=== PATIENT | female | born 1960 | race Caucasian/White ===

== ENCOUNTER → 2016-04-06 | Outpatient (CLI) | payer BC ==
--- NOTE | 2016-04-06 20:13 | CONS ---
DATE OF CONSULTATION: 04/06/2016 CONSULTATION/NEW PATIENT EVALUATION HISTORY OF PRESENT ILLNESS/SLEEP-WAKE EVALUATION: 56-year-old lady has been evaluated in the [facility] for possible obstructive sleep apnea/hypopnea syndrome. SLEEP SCHEDULE: Patient sleep schedule on working days , Sundays she goes to bed about midnight and wakes up at 5:30 a.m., on weekends, she usually sleeps from around about 10:00 p.m. until about 10:00 a.m. FALLING ASLEEP: She does have problem with falling asleep. He has a TV set in bedroom. DURING SLEEP: She snores, has witnessed episodes of stopped breathing during sleep by her . Wakes up with dry mouth, heartburn, gasping for air, sweating, restless legs up to 6 times with up to 2 episodes of nocturia. In the morning, she feel tiredness. [place] Sleepiness Scale is significantly increased to 12. Past medical history is positive for depression, ( ) problems, acid reflux, hypothyroidism. PAST SURGICAL HISTORY: Cholecystectomy, , lap band surgery and removing lap band. Patient weight significantly fluctuated after lap band surgery she lost about 90 pounds and then she increased her weight again about actually gained about 90 pounds back for the last 5 years. MEDICATIONS: 1. Citalopram. 2. Pantoprazole. 3. Tapazole. 4. Aleve. 5. Carafate. 6. Tramadol. SOCIAL HISTORY: Positive for smoking in the past; quit 26 years ago. She smoked for about 13 years up to 1-1/2 packs a day. Alcohol consumption is occasional. FAMILY HISTORY: Positive for hypertension, heart problems, hyperlipidemia, arthritis, asthma, sinus problem, bronchitis, snoring, cancer, acid reflux, diabetes, thyroid problems, during the sleep. REVIEW OF SYSTEMS: Multiple awakenings from sleep, sleepiness during the day. No fevers. No double vision. No recent chest pain. No shortness of breath. No abdominal pain. No bleeding episodes. No blood in urine. No seizure episodes. PHYSICAL EXAMINATION: GENERAL: A 56-year-old lady without distress. VITAL SIGNS: BP 158/84, HR 70, RR 16. Height 5 feet 7 inches. Weight 277, BMI 43.3. Neck 14 and 1-1/4 inches in circumference. Temperature 98.1. Oxygen saturation at room air 94%. HEENT: Oropharynx extremely low position of soft palate, nose restriction of nasal breathing. NECK: Supple. No JVD. Thyroid is not palpable. LUNGS: Clear to percussion and to auscultation. Good air exchange. No wheezing or rhonchi. HEART: S1, S2 regular. No murmurs, gallops or rubs. ABDOMEN: Obese. Soft and nontender. Bowel sounds are present. No organomegaly appreciated. EXTREMITIES: 1+ ankle edema. GAS ADJUSTER: Awake, alert, and oriented x3. Cranial nerves 2 to 7 intact. There is no fasciculation or atrophy noted. No focal deficits observed. IMPRESSION: 1. Snoring, witnessed episodes of stopped breathing during sleep, multiple awakenings from sleep, extremely low position of soft palate, excessive daytime sleepiness, obstructive sleep apnea-hypopnea syndrome. 2. Obesity; body mass index 43.3. 3. Knee problems. 4. Depression. 5. Acid reflux. 6. Hyperthyroidism on treatment with Tapazole. 7. Status post cholecystectomy. 8. Status post section. 9. Status post lap band treatment. PLAN: 1. Polysomnography for evaluation of patient's breathing during sleep. 2. CPAP/BiPAP titration if sleep study confirms obstructive sleep apnea-hypopnea syndrome. 3. Preferable position during sleep on the side. 4. No driving if patient feels any sleepiness. Patient is aware of civil and criminal liability for unsafe driving. 5. I will see patient for follow-up visit to explain results of the testing and following plan. Thank you very much for referring this patient for consultation. Sincerely, Brett Beaver MD, PhD, FAASM. Diplomat of [place] [employer], Sleep Medicine Board by [place] [employer] [place] [employer] Occupational Therapy Aides Teacher of [facility] [place]
== END | disposition home or self-care (01) ==
LOC: SLEEP 15:45
PROVIDERS: ATTEND Internal Medicine
DX: G47.33 Obstructive sleep apnea (adult) (pediatric) (principal); E66.9 Obesity, unspecified; Z68.41 Body mass index [BMI] 40.0-44.9, adult; F32.9 Major depressive disorder, single episode, unspecified; K21.9 Gastro-esophageal reflux disease without esophagitis; E05.90 Thyrotoxicosis, unspecified without thyrotoxic crisis or storm; Z98.890 Other specified postprocedural states; Z98.84 Bariatric surgery status; Z79.899 Other long term (current) drug therapy; Z87.891 Personal history of nicotine dependence
CPT/HCPCS: 99211

== ENCOUNTER 2016-04-19 08:23 | Day surgery (SDC) | payer BC ==
[2016-04-14 11:08] VITALS: BMI 42.9
--- NOTE | 2016-04-19 05:57 | P.GSHP ---
History of Present Illness H&P Date: 04/19/16 CHIEF COMPLAINT: GERD HISTORY OF PRESENT ILLNESS: The patient is a 56-year-old female who presents reports gastroesophageal reflux disease. Upper endoscopy was offered for further evaluation and management. PAST MEDICAL HISTORY: Please see list. PAST SURGICAL HISTORY: Please see list. MEDICATIONS: Please see list. ALLERGIES: Please see list. SOCIAL HISTORY: No illicit drug use FAMILY HISTORY: No reports of Crohn disease or ulcerative colitis. REVIEW OF ORGAN SYSTEMS: CONSTITUTIONAL: No reports of fevers or chills. GI: Denies any blood in stools or constipation. PHYSICAL EXAM: VITAL SIGNS: Stable GENERAL: Well-developed and pleasant in no acute distress. HEENT: No scleral icterus. Extraocular movements grossly intact. Moist buccal mucosa. NECK: Supple without lymphadenopathy. CHEST: Unlabored respirations. Equal bilateral excursions. CARDIOVASCULAR: Regular rate and rhythm. Distal 2+ pulses. ABDOMEN: Soft, nondistended. MUSCULOSKELETAL: No clubbing, cyanosis, or edema. ASSESSMENT: 1. Gastroesophageal reflux disease PLAN: 1. Recommend proceeding with an upper endoscopy Past Medical History Past Medical History: Cancer, GERD/Reflux Additional Past Medical History / Comment(s): skin CA,scheduled for sleep apnea on May History of Any Multi-Drug Resistant Organisms: None Reported Past Surgical History: Bariatric Surgery, Section, Cholecystectomy, Orthopedic Surgery Additional Past Surgical History / Comment(s): Lap Band lap band removed ,rt knee scop x 2 Past Anesthesia/Blood Transfusion Reactions: No Reported Reaction Additional Past Anesthesia/Blood Transfusion Reaction / Comment(s): no hx blood transfusion Past Psychological History: No Psychological Hx Reported Smoking Status: Former smoker Past Alcohol Use History: None Reported Additional Past Alcohol Use History / Comment(s): quit smoking , smoked approx 14 yrs 1 1/2ppd Past Drug Use History: None Reported - Past Family History Mother Additional Family Medical History / Comment(s): alcoholism Father Family Medical History: Cancer, Hypertension Brother(s) Family Medical History: Diabetes Mellitus Sister(s) Family Medical History: Cancer Additional Family Medical History / Comment(s): skin Medications and Allergies Home Medications Medication Instructions Recorded Confirmed Type Melatonin 10 mg PO HS 01/04/16 04/14/16 History Methimazole [Tapazole] 5 mg PO QAM 01/04/16 04/14/16 History Naproxen [Naprosyn] 500 tab PO DAILY 01/04/16 04/14/16 History Pantoprazole Sodium [Protonix] 40 mg PO DAILY 03/01/16 04/14/16 History Citalopram Hydrobromide 40 mg PO QAM 04/14/16 04/14/16 History Allergies Allergy/AdvReac Type Severity Reaction Status Date / Time No Known Allergies Allergy Verified 04/14/16 11:00
[~2016-04-19 08:23] MED LIST: LIDOCAINE 1% 20 ML VIAL (10MG/ML) FOR IV START INTRADERMA PRN
[2016-04-19 08:51] VITALS: TEMP 98.9
[2016-04-19] MEDS ORDERED: LIDOCAINE 1% 20 ML VIAL (10MG/ML) FOR IV START INTRADERMA ONE (08:54)
[2016-04-19] MEDS: LACTATED RINGERS 1,000 ML IV SCH ×2 (08:54→08:56)
[2016-04-19] MEDS ORDERED: LIDOCAINE 1% INJ 10MG/ML (20 ML MDV) ONE (08:58)
[2016-04-19] MEDS ORDERED: PROPOFOL 10 MG/ML 20 ML VIAL IV ONE (08:58)
--- NOTE | 2016-04-19 09:13 | P.PCN ---
Date of Procedure: 04/19/16 Description of Procedure: PREOPERATIVE DIAGNOSIS: Gastroesophageal reflux disease. POSTOPERATIVE DIAGNOSIS: Chronic gastritis without stigmata of prior bleed. Diaphragmatic hiatal hernia. Gastroesophageal reflux disease. Erosive esophagitis. OPERATION: Esophagogastroduodenoscopy with biopsies along antrum and distal esophagus. SURGEON: Lianne Seals MD ANESTHESIA: MAC. INDICATIONS: The patient is a 56-year-old female who presents with a history of reflux disease. Benefits and risks of the procedure were described. Informed consent was obtained. DESCRIPTION: The patient was brought into the endoscopy suite and laid in the left lateral decubitus position. An Olympus gastroscope was passed along the posterior oropharynx down to the distal esophagus where the squamocolumnar junction was encountered at 35 cm from the incisors. The stomach was entered and no bile reflux was found. Additional findings are listed below. Biopsies with cold forceps were obtained of the antrum. The first through third portion of the duodenum was examined and unremarkable. Retroflexion of the scope confirmed Hill grade 4 lower esophageal valve. The squamocolumnar junction demostrated acute LA grade C erosive esophagitis. The stomach was desufflated. The patient tolerated the procedure well. FINDINGS: Squamocolumnar junction 35 cm from the incisors. Diaphragmatic hiatus at 40 cm from the incisors. Diaphragmatic hiatal hernia, 5 cm. Chronic superficial gastritis. Hill grade 4 lower esophageal valve. LA grade C erosive esophagitis. No active duodenitis. RECOMMENDATIONS: Continue medical therapy. Further recommendations pending results of pathology report. Upper endoscopy as needed. Recommend antireflux operation.
[2016-04-19 09:16] VITALS: RESP 16
[2016-04-19 09:32] VITALS: BP 116/84; PULSE 62
== END 2016-04-19 09:59 | disposition home or self-care (01) ==
LOC: ORWHC2ENDO 08:23
PROVIDERS: ATTEND Surgery Plastic and Reconstructive Surgery
DX: K21.0 Gastro-esophageal reflux disease with esophagitis (principal); K29.30 Chronic superficial gastritis without bleeding; K44.9 Diaphragmatic hernia without obstruction or gangrene; K22.10 Ulcer of esophagus without bleeding; Z87.891 Personal history of nicotine dependence; F32.9 Major depressive disorder, single episode, unspecified; E66.01 Morbid (severe) obesity due to excess calories; Z68.41 Body mass index [BMI] 40.0-44.9, adult; Z79.02 Long term (current) use of antithrombotics/antiplatelets; Z79.899 Other long term (current) drug therapy
CPT/HCPCS: 43239; 88305; 88342

== ENCOUNTER → 2016-04-26 | Outpatient (CLI) | payer BC ==
[2016-04-26 13:48] VITALS: BP 137/77; PULSE 80; TEMP 98.6; BMI 43.3
--- NOTE | 2016-06-04 18:20 | P.PN ---
Progress Note - Text DATE OF SERVICE: 04/26/2016 CHIEF COMPLAINT: Bariatric assessment. HISTORY OF PRESENT ILLNESS: Natali Garcia is a 56-year-old female who presents for bariatric evaluation. She has a personal history of adjustable gastric band and has developed complications from adjustable gastric band including severe esophageal reflux disease. She reports absolutely no relief of her symptoms after taking Zantac, including alternatives. She does report developing hypertension as well. Her is at bedside and also confirms her history of obstructive sleep apnea. Now she presents for further evaluation and management, particularly for correction of her complication from her adjustable gastric band. At a height of 5 foot 7 1/4 inches, her ideal body weight is 158 pounds. Today she comes in weighing 270 pounds. She has gained approximately 9 pounds. She is 120 pounds overweight. Body mass index has increased from 41.9 to 43.3. PAST MEDICAL HISTORY: 1. Osteoarthritis of the bilateral knees. 2. Gastroesophageal reflux disease. 3. Morbid obesity. PAST SURGICAL HISTORY: 1. History of adjustable gastric band. 2. . 3. Cholecystectomy. 4. Upper endoscopy. MEDICATIONS: 1. Mobic. 2. Vitamin B complex. 3. Zantac. 4. Protonix. 5. Tapazole. 6. Melatonin. 7. Citalopram. ALLERGIES: Denies. SOCIAL HISTORY: Lifelong nontobacco user. She is . FAMILY HISTORY: Notable for morbid obesity. Also, no reports of esophageal cancer or stomach cancer. REVIEW OF SYSTEMS: GASTROINTESTINAL: Severe gastroesophageal reflux disease. Denies any blood in stools. Findings consistent with diaphragmatic hiatal hernia. CONSTITUTIONAL: [place] body weight of 158 pounds. Initially 269 pounds, now up to 278 pound. Weight gain of 9 pounds. Body mass index up from 41.9 to 43.3. HEENT: Denies any trouble with vision or hearing. No reports of dysphagia. ENDOCRINE: No reports of diabetes or thyroid disorder. RESPIRATORY: Has daytime snoring. No dyspnea on exertion. CARDIOVASCULAR: History of hypertension, untreated. No reports of heart attack. MUSCULOSKELETAL: Has diffuse osteoarthritis. Has endstage osteoarthritis of bilateral knees, pending knee replacement. NEURO: No previous stroke or seizure disorders. PSYCH: No reports of active depression or suicidality. HEMATOLOGIC: No reports of easy bruising or bleeding. PHYSICAL EXAM: VITAL SIGNS: 98.6, 88, 137/77 and 5 feet 7-1/4, 278 pounds. Body mass index 43.3. GENERAL: Well-developed female in no acute distress. HEENT: No scleral icterus. Extraocular movements grossly intact. Moist buccal mucosa. NECK: Supple without lymphadenopathy. CHEST: Nonlabored respirations. Equal bilateral excursions. CARDIOVASCULAR: Regular rate and rhythm. ABDOMEN: Obese, soft, nontender, nondistended. MUSCULOSKELETAL: No clubbing, cyanosis, or edema. NEURO: No focal or lateralizing signs. Cranial nerves II to XII grossly intact. PSYCH: Appropriate affect. Alert and oriented to person, place, and time. STUDIES: Upper endoscopy was reviewed, demonstrating findings consistent with diaphragmatic hiatal hernia including chronic gastritis. There is esophagitis also identified. Grade 4 lower esophageal with LA grade C erosive esophagitis confirmed. 5 cm diaphragmatic hiatal hernia also confirmed. LABS: Metabolic panel had been reviewed and confirmed with LDL elevated at 108. TSH was suppressed. Vitamin D was low at 18.6. Pathology report reviewed and consistent with chronic gastritis. Additionally, chronic erosive esophagitis also confirmed with no evidence of intestinal metaplasia. ASSESSMENT: 1. Morbid obesity due to excess calories. 2. Body mass index of 43.3. 3. Erosive esophagitis. 4. Diaphragmatic hiatal hernia. 5. Complications from adjustable gastric band. 6. Obstructive sleep apnea. 7. Hypertensive heart disease. 8. End-stage bilateral knee osteoarthritis. 9. Gastroesophageal reflux disease. 10. Vitamin D deficiency. PLAN: 1. Despite being started on Zantac 300 mg daily, her reflux disease is not controlled including taking Protonix. This confirms severity of her gastroesophageal reflux disease. 2. She has had several visits where her blood pressure is elevated consistent with hypertensive heart disease. 3. She is still awaiting evaluation for obstructive sleep apnea and treatment. 4. As she has history of previous adjustable gastric band, this also puts her at risk for increased risk for complications as compared to an original surgery to a Tyler-en-Y gastric bypass. The benefits and risks were thoroughly reviewed with her. 5. Recommend follow-up upon completion of her additional studies, including for treatment of her obstructive sleep apnea. 6. In the interim, she will continue vitamin D supplement to correct her vitamin D deficiency. 7. For history of reflux disease, she should continue with medical management.
== END | disposition home or self-care (01) ==
LOC: BARWHC3 12:39
PROVIDERS: ATTEND Surgery Plastic and Reconstructive Surgery
DX: Z48.815 Encounter for surgical aftercare following surgery on the digestive system (principal); E66.01 Morbid (severe) obesity due to excess calories; Z68.41 Body mass index [BMI] 40.0-44.9, adult; K22.10 Ulcer of esophagus without bleeding; K44.9 Diaphragmatic hernia without obstruction or gangrene; K95.09 Other complications of gastric band procedure; G47.33 Obstructive sleep apnea (adult) (pediatric); I11.9 Hypertensive heart disease without heart failure; M17.0 Bilateral primary osteoarthritis of knee; K21.9 Gastro-esophageal reflux disease without esophagitis; E55.9 Vitamin D deficiency, unspecified; Z98.84 Bariatric surgery status; Z79.899 Other long term (current) drug therapy
CPT/HCPCS: 99211

== ENCOUNTER → 2016-06-12 | Outpatient (CLI) | payer BC ==
[2016-06-12 16:30] VITALS: BMI 43.2
== END | disposition home or self-care (01) ==
LOC: BARWHC3 09:02
PROVIDERS: ATTEND Surgery Plastic and Reconstructive Surgery
DX: Z71.3 Dietary counseling and surveillance (principal); E66.01 Morbid (severe) obesity due to excess calories; Z68.41 Body mass index [BMI] 40.0-44.9, adult
CPT/HCPCS: 97804

== ENCOUNTER → 2016-06-15 | Outpatient (CLI) | payer BC ==
[2016-06-15 17:02] LABS: Basophils # (A) 0.1 k/uL (0-0.2); Basophils % (A) 1 %; CHCM 31.2; Eosinophils # (A) 0.4 k/uL (0-0.7); Eosinophils % (A) 4 %; HCT 40.9 % (34.0-46.0); HDW 2.13; Luc # (Auto) 0.19; Luc % (Auto) 2; Lymphocytes # (A) 2.2 k/uL (1.0-4.8); Lymphocytes % (A) 24 %; MCH 28.8 pg (25.0-35.0); MCHC 31.9 g/dL (31.0-37.0); MCV 90.4 fL (80.0-100.0); Mean Platelet Volume 6.6; Monocytes # (A) 0.4 k/uL (0-1.0); Monocytes % (A) 4 %; Neutrophils # (A) 5.8 k/uL (1.3-7.7); Neutrophils % (A) 65 %; RBC 4.53 m/uL (3.80-5.40); RDW 14.3 % (11.5-15.5); WBC (Perox) 9.97
[2016-06-15 17:17] LABS: ALT 31 U/L (9-52); AST 20 U/L (14-36); Alkaline Phosphatase 146 U/L (38-126); Anion Gap 12 mmol/L; Blood Urea Nitrogen 23 mg/dL (7-17); Calcium 9.9 mg/dL (8.4-10.2); Carbon Dioxide 26 mmol/L (22-30); Chloride 105 mmol/L (98-107); Glucose 113 mg/dL (74-99); Non-African American GFR(MDRD) >60 (>60 ml/min/1.73 sqM); Potassium 4.1 mmol/L (3.5-5.1); Sodium 143 mmol/L (137-145); Total Bilirubin 0.4 mg/dL (0.2-1.3); Total Protein 7.1 g/dL (6.3-8.2)
[2016-06-15 17:19] LABS: Partial Thromboplastin Time 24.4 sec (22.0-30.0); Prothrombin Time 10.1 sec (9.0-12.0)
--- NOTE | 2016-06-15 17:25 | XR ---
EXAMINATION TYPE: XR chest 2V DATE OF EXAM: 06/15/2016 5:07 PM COMPARISON: NONE HISTORY: Chest pain TECHNIQUE: Frontal and lateral views of the chest are obtained. FINDINGS: Heart and mediastinum are normal. Lungs are clear. Diaphragm is normal. Bony thorax is int act. IMPRESSION: Normal chest
== END | disposition home or self-care (01) ==
LOC: LABWHC1 16:38
PROVIDERS: ATTEND Family Medicine
DX: Z01.818 Encounter for other preprocedural examination (principal); E05.90 Thyrotoxicosis, unspecified without thyrotoxic crisis or storm
CPT/HCPCS: 36415; 71020; 80053; 84443; 85025; 85610; 85730

== ENCOUNTER → 2016-08-03 | Outpatient (CLI) | payer BC ==
--- NOTE | 2016-08-03 17:49 | PN ---
DATE OF SERVICE: 08/03/2016 This patient is a 56-year-old lady who has been followed in the sleep center for treatment of obstructive sleep apnea-hypopnea syndrome. Recently patient had a diagnostic sleep study and CPAP titration; I discussed the results of these tests with her. Patient was started on treatment with CPAP on automatic regimen with a pressure ranging from 5 to 15 cm of water. I received information from her machine and reviewed that with her. Patient demonstrated 100% usage of the machine for more than 4 hours; average 7 hours 30 minutes per night. Range of the pressure was between 7.1 and 10.8. Apnea-hypopnea index reading is 0.5. Patient feels significantly better while on treatment with CPAP. [place] Sleepiness Scale is 8. No snoring with the machine. Quality of sleep is better and she feels better again during the day. MEDICATIONS: 1. Citalopram. 2. Pantoprazole. 3. Tapazole. 4. Aleve. 5. Carafate. 6. Tramadol. PHYSICAL EXAMINATION: Patient in no distress. VITAL SIGNS: BP 140/74, HR 66, RR 16. Weight 277. Temperature 98.0. Oxygen saturation at room air 97%. HEENT: PERRLA, EOMI. Evaluation of oropharynx showed tongue protrudes midline; low position of soft palate. NECK: Supple. No JVD. Thyroid is not palpable. LUNGS: Clear to percussion and to auscultation. Good air exchange. No wheezing or rhonchi. HEART: S1, S2 regular. No murmurs, gallops or rubs. ABDOMEN: Obese. EXTREMITIES: No clubbing or cyanosis. ACTUARIAL DIRECTOR: Awake, alert, and oriented x3. Cranial nerves 2 to 7 intact. There is no fasciculation or atrophy noted. No focal deficits observed. IMPRESSION: 1. Obstructive sleep apnea-hypopnea syndrome, controlled with CPAP. Patient demonstrated 100% compliance with treatment and is benefiting from treatment. 2. Obesity. 3. Depression. 4. Knee problems. 5. Acid reflux. 6. Hyperthyroidism. 7. Status post section. 8. Status post cholecystectomy. 9. Status post lap band surgery. PLAN: 1. Patient will continue to use her CPAP equipment every night for the whole night. 2. Losing weight. 3. Sleep hygiene with regular time in bed for at least 8 hours. 4. No driving if feeling any sleepiness. Thank you very much for allowing me to participate in the management of your patient. Follow-up visit in 10 months. Sincerely, Brett Beaver MD, PhD, FAASM. Diplomat of [place] [employer], Sleep Medicine Board by [place] [employer], [place] [employer]
== END | disposition home or self-care (01) ==
LOC: SLEEP 13:27
PROVIDERS: ATTEND Internal Medicine
DX: G47.33 Obstructive sleep apnea (adult) (pediatric) (principal); Z79.899 Other long term (current) drug therapy; E66.9 Obesity, unspecified; K21.9 Gastro-esophageal reflux disease without esophagitis; E05.90 Thyrotoxicosis, unspecified without thyrotoxic crisis or storm

== ENCOUNTER → 2016-09-20 | Outpatient (CLI) | payer BC ==
[2016-09-20 14:02] LABS: CH 27.4; CHCM 32.4; HCT 42.7 % (34.0-46.0); HDW 2.33; HGB 14.1 gm/dL (11.4-16.0); MCV 84.9 fL (80.0-100.0); Mean Platelet Volume 6.6; RBC 5.04 m/uL (3.80-5.40); RDW 14.9 % (11.5-15.5); WBC 11.3 k/uL (3.8-10.6)
[2016-09-20 14:13] LABS: Partial Thromboplastin Time 22.6 sec (22.0-30.0); Prothrombin Time 10.1 sec (9.0-12.0)
[2016-09-20 14:30] LABS: ALT 49 U/L (9-52); AST 23 U/L (14-36); Alkaline Phosphatase 154 U/L (38-126); Anion Gap 13 mmol/L; Blood Urea Nitrogen 28 mg/dL (7-17); Calcium 10.2 mg/dL (8.4-10.2); Carbon Dioxide 26 mmol/L (22-30); Chloride 104 mmol/L (98-107); Glucose 107 mg/dL (74-99); Non-African American GFR(MDRD) 57 (>60 ml/min/1.73 sqM); Potassium 4.4 mmol/L (3.5-5.1); Sodium 143 mmol/L (137-145); Total Bilirubin 0.7 mg/dL (0.2-1.3); Total Protein 6.8 g/dL (6.3-8.2)
[2016-09-20 14:34] LABS: Appearance,Urine Cloudy (Clear); Bacteria,Urine Few /hpf; Bilirubin,Urine Negative (Negative); Glucose,Urine (UA) Negative (Negative); Ketones,Urine Negative (Negative); Leukocyte Esterase,Urine Large (Negative); Mucus,Urine Rare /hpf; Nitrite,Urine Negative (Negative); PH, Urine 5.5 (5.0-8.0); Particle Count 11210; Protein,Urine Trace (Negative); RBC,Urine 9 /hpf (0-5); Specific Gravity,Urine 1.021 (1.001-1.035); Squamous Epithelial Cell,Urine 24 /hpf (0-4); UA Billing (MACRO vs. MICRO) MICRO; Urobilinogen,Urine <2.0 mg/dL (<2.0); WBC,Urine 13 /hpf (0-5)
== END | disposition home or self-care (01) ==
LOC: LABPAT 13:10
PROVIDERS: ATTEND Orthopaedic Surgery
DX: Z01.810 Encounter for preprocedural cardiovascular examination (principal); M17.11 Unilateral primary osteoarthritis, right knee; Z01.812 Encounter for preprocedural laboratory examination
CPT/HCPCS: 80053; 81001; 85027; 85610; 85730; 87070

== ENCOUNTER → 2016-09-27 | Outpatient (CLI) | payer BC ==
[2016-09-27 11:47] LABS: Appearance,Urine Clear (Clear); Bacteria,Urine Rare /hpf; Bilirubin,Urine Negative (Negative); Glucose,Urine (UA) Negative (Negative); Ketones,Urine Negative (Negative); Leukocyte Esterase,Urine Negative (Negative); Mucus,Urine Rare /hpf; Nitrite,Urine Negative (Negative); Particle Count 923; Protein,Urine Negative (Negative); RBC,Urine <1 /hpf (0-5); Specific Gravity,Urine 1.012 (1.001-1.035); Squamous Epithelial Cell,Urine 1 /hpf (0-4); UA Billing (MACRO vs. MICRO) MICRO; Urobilinogen,Urine <2.0 mg/dL (<2.0); WBC,Urine 1 /hpf (0-5)
== END | disposition home or self-care (01) ==
LOC: LABWHC1 10:23
PROVIDERS: ATTEND Family Medicine
DX: N39.0 Urinary tract infection, site not specified (principal)
CPT/HCPCS: 81001

== ENCOUNTER 2016-09-29 12:22 | Inpatient (IN) | payer BC ==
[2016-09-22 15:14] VITALS: BMI 42.4
[~2016-09-29 12:22] MED LIST changes: +ACETAMINOPHEN TAB 500 MG TAB PO ONE; +DEXAMETHASONE SOD PHOSPHATE 10 MG/ML 1 ML VIAL IV ONE; +HYDROmorphone 1 MG/ML 1 ML SYRINGE IVP PRN; -LIDOCAINE 1% 20 ML VIAL (10MG/ML) FOR IV START INTRADERMA PRN; +MELOXICAM 7.5 MG TAB PO ONE; +MIDAZOLAM 2 MG/2 ML VIAL IV PRN; +ONDANSETRON 4 MG/2 ML VIAL IVP ONE; +ROPIVACAINE 246.25 MG, EPINEPHrine 0.5 MG, KETOROLAC 30 MG, cloNIDine HCL/PF 80 MCG, WA... MISCELLANE ONE; +TRANEXAMIC ACID 1,000 MG in SODIUM CHLORIDE 0.9% 100 ML IVPB ONE; +ceFAZolin 3 GM in SODIUM CHLORIDE 0.9% 100 ML IVPB ONE
[2016-09-29] MEDS: LACTATED RINGERS 1,000 ML IV SCH ×2 (13:30→23:42)
[2016-09-29] MEDS ORDERED: LIDOCAINE 1% 20 ML VIAL (10MG/ML) FOR IV START INTRADERMA ONE (13:31)
[2016-09-29] MEDS ORDERED: fentaNYL (PF) 50 MCG/ML 2 ML AMP IVP ONE (13:47)
[2016-09-29] MEDS ORDERED: fentaNYL (PF) 50 MCG/ML 2 ML AMP IV ONE (13:52)
[2016-09-29] MEDS ORDERED: ROPIVACAINE 1,100 MG, SODIUM CHLORIDE 0.9% 330 ML MISCELLANE PRN ×2 (14:09)
--- NOTE | 2016-09-29 14:12 | P.ONQ ---
Anesthesiology Proc Note - PNB - Peripheral Nerve Block Performed Right Adductor Canal Infusion Time Out Performed: Yes Procedure Start Time: 13:45 Procedure Stop Time: 14:00 Indication: Acute Post-Operative Pain, Requested by physician Specifically requested for management of pain by DrAilyn: Les Mccurdy Sedation Type: Sedate with meaningful contact maintained Preparation: Sterile Dressing Position: Supine Catheter Depth at Skin (cm): 10 Catheter: Indwelling Needle Types: Other (see comment) (PAJUNK) Needle Size: 100mm (4") Needle Gauge: 18 Technique: Ultrasound Injectate: 0.5% Ropivacaine (see comment for volume) (25 ML)
[2016-09-29] MEDS ORDERED: TRANEXAMIC ACID 1,000 MG/10 ML VIAL ONE (14:53)
[2016-09-29] MEDS ORDERED: fentaNYL (PF) 50 MCG/ML 2 ML AMP ONE (14:53)
[2016-09-29] MEDS ORDERED: PROPOFOL 10 MG/ML 20 ML VIAL IV ONE (14:53)
[2016-09-29] MEDS ORDERED: ePHEDrine 50 MG/ML 1 ML AMP ONE (14:53)
[2016-09-29] MEDS ORDERED: SODIUM CHLORIDE 0.9% 100 ML BAG ONE (14:53)
[2016-09-29] MEDS ORDERED: MIDAZOLAM 2 MG/2 ML VIAL ONE (14:53)
[2016-09-29] MEDS ORDERED: ceFAZolin 3,000 MG in SODIUM CHLORIDE 0.9% IRRIGATIO 3,000 ML IRRIGATION ONE (15:29)
--- NOTE | 2016-09-29 16:22 | P.OP ---
Date of Procedure: 09/29/16 Preoperative Diagnosis: Severe osteoarthritis right knee Postoperative Diagnosis: Severe osteoarthritis right knee Procedure(s) Performed: Right total knee arthroplasty Implants: Hernandez and Nephew Oxinium femoral component size 6, right Hernandez & Nephew Silvana II right nonporous tibial baseplate size 5 Hernandez & Nephew size 9 mm Legion XLPE high flexion articular insert, size 5-6 Hernandez & Nephew Silvana II resurfacing patellar component, 32 mm All components were cemented using [place] bone cement.. The articulation is ceramic on polyethylene. Anesthesia: spinal Surgeon: Les Mccurdy General Accounting Manager #1: Selena Viveros Estimated Blood Loss (ml): 50 Pathology: other (Bone and cartilage) Condition: stable Disposition: PACU Indications for Procedure: After failure of conservative treatment we discussed the surgical and nonsurgical treatment options at length. Patient wishes to proceed with a total knee arthroplasty. Complications specific to this procedure were discussed at length, including but not limited to infection, bleeding, stiffness , and nerve injury. Patient is aware of all these complications and informed consent was obtained Operative Findings: The operative findings are consistent with severe osteoarthritis of the right knee. Description of Procedure: Patient was seen in the preoperative area consent was reviewed and operative site was marked with a skin marker. An adductor canal pain catheter was placed by anesthesia in the preoperative area. Patient was then brought to the operating room and given preoperative antibiotics intravenously. A spinal anesthetic was administered by the anesthesia department. A tourniquet was placed on the upper thigh and the lower extremity was prepped and draped in usual sterile fashion. A gram of transexamic acid was given. A universal timeout was then performed which confirmed the patient's name, surgical site, ALLERGIES, and consent. The lower extremity was then exsanguinated and tourniquet was inflated to 250 mmHg. A standard and anterior midline approach to the knee was performed. The skin and subcutaneous tissue was dissected down to the patellar tendon. A medial parapatellar arthrotomy was then performed. The knee was then extended, the patellar was everted, and the knee was again flexed. Anterior horns of both menisci were excised, and a release was performed to the posterior medial aspect of the knee. On gross visual inspection, there was complete loss of articular cartilage in the medial and patellofemoral joint spaces. There was also significant cartilage damage in the lateral compartment. There were multiple periarticular osteophytes which were then removed with a Ronguer. The femoral canal was then opened with the appropriate drill, and the intramedullary femoral cutting guide was then placed and set for 4 of valgus. The distal femoral cutting block was then pinned in place, and the distal femur was then cut. The cutting block was then removed and the cut was checked for flatness. Next, the sizing guide was then placed and set for 3 external rotation based off of the epicondylar axis and [place] line. After the femur was sized, the appropriate 4-in-1 cutting block was then pinned in place. The anterior condyles were cut without notching. The posterior and chamfer cuts were performed while protecting the collateral ligaments. The cutting block was then removed, and the femoral canal was plugged with autologous bone. Attention was then directed to the tibia. The remaining ACL was removed with a Ronguer, and the tibia was then gently subluxed forward with a large bent knee retractor. Any remaining menisci was excised. The posterior lateral corner was cauterized in order to cauterize the lateral geniculate artery. The extra medullary tibial cutting guide was then placed, set for the appropriate rotation , slope, and depth of resection. The proximal tibia cutting guide was then pinned in place. Proximal tibia was then cut and sized. Next trials were then placed with the appropriate-sized insert. The knee was able to fully extend and flex to 130 and was stable throughout all range of motion. The knee was then extended, patella everted. Patella was then measured, and then using an osteotomy guide, the patella was cut at the appropriate level. The patella was then measured and drilled and the patella trial was then placed. The knee was then taken through range of motion with the patella trial and the patella tracked normally. The knee was then extended patella trial was then removed and the patella was everted. Knee was then flexed and lug holes were drilled through the femoral trial and the femoral trial was then removed. The tibial was then exposed, and the tibial broach guide was then pinned in place after it was set for the appropriate rotation to allow for the most coverage without overhang. The tibia was then reamed and broached. The cut surfaces of bone were then irrigated with pulsatile lavage. The posterior structures were injected with the ropivacaine solution. The knee was also irrigated with Irrisept solution. The components were then opened, the cement was mixed, and the components were then cemented in place. The cement was allowed to harden with the knee in full extension. While the cement was hardening, the remaining soft tissues were then injected with a ropivacaine solution, which consisted of 246.25 mg of ropivacaine, 0.5 mg of epinephrine, 30 mg of Toradol, 80 g of clonidine, and 48.45 mL of sterile water, for a total of 100 mL of fluid injected. After the cemented hardened. The tourniquet was released, and hemostasis was obtained. A second gram of transexamic acid was given. The knee was again irrigated. The knee was again taken through range of motion and found to be stable throughout all range of motion of 0-130 , and the patella tracked normally. The fascia was then closed with #2 strata fix suture. The subcutaneous tissue was closed with 3-0 Vicryl and 3-0 strata fix. Dermabond tape was used for the skin and placed with the knee in flexion. The patient was placed in a sterile dressing. Patient was then transferred to recovery room in stable condition. The clinic assistant DENNY Juarez was required due the complexity surgery and the need for a skilled salesperson surgical appliances. She assisted in positioning, draping, retraction, and closure of the wound.
[2016-09-29] MEDS ORDERED: DIAZEPAM 5 MG TAB PO PRN ×2 (16:42)
[2016-09-29] MEDS ORDERED: NALOXONE 0.4 MG/ML 1 ML VIAL IV PRN (16:42)
[2016-09-29] MEDS ORDERED: HYDROmorphone 1 MG/ML 1 ML SYRINGE IVP PRN ×3 (16:42)
[2016-09-29] MEDS ORDERED: HYDROcodone/APAP 5-325MG 1 EACH TAB PO PRN (16:42)
[2016-09-29] MEDS ORDERED: BISACODYL 10 MG SUPP RECTAL PRN (16:42)
[2016-09-29] MEDS ORDERED: NA PHOS,M-B/NA PHOS,DI-BA 133 ML ENEMA RECTAL PRN (16:42)
[2016-09-29] MEDS ORDERED: hydrOXYzine PAMOATE 25 MG CAP PO PRN (16:42)
[2016-09-29] MEDS ORDERED: MAGNESIUM HYDROXIDE 2,400 MG/10 ML CUP PO PRN (16:42)
[2016-09-29] MEDS ORDERED: ONDANSETRON 4 MG/2 ML VIAL IVP PRN (16:42)
--- NOTE | 2016-09-29 17:10 | XR ---
EXAMINATION TYPE: XR knee limited RT DATE OF EXAM: 09/29/2016 COMPARISON: NONE HISTORY: Postop TECHNIQUE: 2 views FINDINGS: There is a right knee prosthesis. Components appear in anatomic position. IMPRESSION: Knee prosthesis without sign of complicating process.
[2016-09-29] MEDS: HYDROcodone/APAP 5-325MG 1 EACH TAB PO PRN (19:43)
[2016-09-29] MEDS: SODIUM CHLORIDE 0.9% 1,000 ML IV SCH ×2 (19:47→20:14)
[2016-09-29] MEDS: SENNOSIDES-DOCUSATE SODIUM 1 EACH TAB PO SCH (19:53)
[2016-09-29] MEDS: ASPIRIN 325 MG TAB PO SCH (19:53)
[2016-09-29] MEDS: MELATONIN 5 MG TABLET PO SCH (20:14)
[2016-09-29] MEDS: FAMOTIDINE 20 MG TAB PO SCH (20:14)
[2016-09-29] MEDS: ceFAZolin 3 GM in SODIUM CHLORIDE 0.9% 100 ML IVPB SCH (23:37)
[2016-09-30] MEDS: HYDROcodone/APAP 5-325MG 1 EACH TAB PO PRN ×3 (03:03→18:03)
[2016-09-30 07:11] LABS: Basophils % (A) 0 %; CH 27.9; CHCM 31.6; Eosinophils % (A) 0 %; HCT 37.9 % (34.0-46.0); HDW 2.18; HGB 12.2 gm/dL (11.4-16.0); Luc # (Auto) 0.08; Luc % (Auto) 1; Lymphocytes # (A) 1.1 k/uL (1.0-4.8); Lymphocytes % (A) 6 %; MCH 28.6 pg (25.0-35.0); MCHC 32.3 g/dL (31.0-37.0); MCV 88.7 fL (80.0-100.0); Mean Platelet Volume 6.9; Monocytes # (A) 0.5 k/uL (0-1.0); Monocytes % (A) 3 %; Neutrophils # (A) 14.9 k/uL (1.3-7.7); Neutrophils % (A) 90 %; RBC 4.28 m/uL (3.80-5.40); RDW 15.6 % (11.5-15.5); WBC 16.5 k/uL (3.8-10.6); WBC (Perox) 17.05
[2016-09-30] MEDS: ASPIRIN 325 MG TAB PO SCH ×2 (08:19→20:48)
[2016-09-30] MEDS: PANTOPRAZOLE 40 MG TABLET PO SCH (08:19)
[2016-09-30] MEDS: CITALOPRAM HYDROBROMIDE 20 MG TAB PO SCH (08:19)
[2016-09-30] MEDS: MELOXICAM 7.5 MG TAB PO SCH (08:20)
[2016-09-30] MEDS: ceFAZolin 3 GM in SODIUM CHLORIDE 0.9% 100 ML IVPB SCH (08:21)
[2016-09-30] MEDS: METHIMAZOLE 5 MG TAB PO SCH (08:21)
--- NOTE | 2016-09-30 11:08 | P.PN ---
Subjective Principal diagnosis: Status post right total knee arthroplasty Patient is a pleasant 56-year-old female seen at bedside this morning. She is postop day #1 from right total knee arthroplasty. She has pain at the surgical site as expected but has no other new complaints. She denies calf pain, numbness or tingling. Review of systems is negative for fever, chills, chest pain, shortness of breath or other. Objective - Vital Signs Vital signs: Vital Signs Temp 97.6 F 09/30/16 07:00 Pulse 74 09/30/16 07:00 Resp 14 09/30/16 07:00 BP 107/59 09/30/16 07:00 Pulse Ox 95 09/30/16 07:00 Intake & Output 09/29/16 09/30/16 09/30/16 18:59 06:59 18:59 Intake Total 1700 100 Output Total 50 Balance 1650 100 Intake: IV 900 100 ceFAZolin 3 gm In Sodium 100 Chloride 0.9% 100 ml @ 100 mls/hr IVPB Q8HR [facility] Rx#:[id number] Oral 800 Output: Estimated Blood Loss 50 Other: Voiding Method Toilet Toilet # Voids 1 - Exam Inspection of the lower extremity reveals a benign surgical wound. There is no active bleeding or drainage. Neurovascular status is intact with motor and sensation throughout the right lower extremity. The calf is soft and nontender. There is 2+ dorsalis pedis pulse and less than 2 second cap refill present. - Constitutional General appearance: Present: no acute distress - Psychiatric Psychiatric: Present: A&O x's 3, appropriate affect, intact judgment & insight - Labs CBC & Chem 7: 09/30/16 06:29 Labs: Abnormal Lab Results - Last 24 Hours (Table) 09/30/16 Range/Units 06:29 WBC 16.5 H (3.8-10.6) k/uL RDW 15.6 H (11.5-15.5) % Neutrophils # 14.9 H (1.3-7.7) k/uL Assessment and Plan (1) Osteoarthritis Narrative/Plan: She will continue with routine postop orthopedic protocol including pain management, wound care, physical therapy, DVT prophylaxis and medical management. Expect that she will discharge to home tomorrow, Sunday Status: Acute Time with Patient: Less than 30
--- NOTE | 2016-09-30 17:03 | P.CONS ---
History of Present Illness - Reason for Consult Leukocytosis - History of Present Illness Patient is admitted for right knee arthroplasty successfully underwent right knee arthroplasty, postoperatively patient did pass gas did not move her bowel. Patient denied any fever, chills, nausea, vomiting, fairly controlled pain. Patient denied any dysuria. Review of Systems REVIEW OF SYSTEMS: CONSTITUTIONAL: No fever, no malaise, no fatigue. HEENT: No recent visual problems or hearing problems. Denied any sore throat. CARDIOVASCULAR: No chest pain, orthopnea, PND, no palpitations, no syncope. PULMONARY: No shortness of breath, no cough, no hemoptysis. GASTROINTESTINAL: No diarrhea, no nausea, no vomiting, no abdominal pain. Normoactive bowel sounds. NEUROLOGICAL: No headaches, no weakness, no numbness. HEMATOLOGICAL: Denies any bleeding or petechiae. GENITOURINARY: Denies any burning micturition, frequency, or urgency. MUSCULOSKELETAL/RHEUMATOLOGICAL: Denies any joint pain, swelling, or any muscle pain. ENDOCRINE: Denies any polyuria or polydipsia. The rest of the 14-point review of systems is negative. Past Medical History Past Medical History: GERD/Reflux Additional Past Medical History / Comment(s): HX MELANOMA ON FOREHEAD. USING CPAP. HIATAL HERNIA. VARICOSE VEINS. UTI CURRENT, TO GET PO AB ORDERED TODAY BY DR MIRAMONTES'S OFFICE. hypothyroid History of Any Multi-Drug Resistant Organisms: None Reported Past Surgical History: Bariatric Surgery, Section, Cholecystectomy Additional Past Surgical History / Comment(s): LAP BAND, LATER REMOVED. RT KNEE SCOPE X2. EGD. trk Past Anesthesia/Blood Transfusion Reactions: No Reported Reaction Past Psychological History: No Psychological Hx Reported Smoking Status: Never smoker Past Alcohol Use History: None Reported Additional Past Alcohol Use History / Comment(s): SMOKED 13 YEARS, 2 PPD, QUIT 1989 Past Drug Use History: None Reported - Past Family History Father Family Medical History: Cancer Sister(s) Family Medical History: Cancer Medications and Allergies Home Medications Medication Instructions Recorded Confirmed Type Methimazole [Tapazole] 5 mg PO QAM 01/04/16 09/29/16 History Pantoprazole Sodium [Protonix] 40 mg PO DAILY 03/01/16 09/29/16 History Citalopram Hydrobromide 40 mg PO QAM 04/14/16 09/29/16 History [Citalopram HBr] Meloxicam [Mobic] 7.5 mg PO DAILY 04/26/16 09/29/16 History Ergocalciferol [Vitamin D2 50,000 unit PO WE 09/22/16 09/29/16 History (DRISDOL)] Melatonin 10 mg PO HS 09/29/16 09/29/16 History Allergies Allergy/AdvReac Type Severity Reaction Status Date / Time No Known Allergies Allergy Verified 09/29/16 21:16 Physical Exam Vitals: Vital Signs Temp Pulse Pulse Resp BP Pulse Ox 09/30/16 15:00 97.8 F 82 15 116/76 97 09/30/16 07:00 97.6 F 74 14 107/59 95 09/30/16 02:33 97.6 F 74 16 102/58 92 L 09/29/16 20:00 99 127/57 92 L 09/29/16 19:45 101 H 122/67 94 L 09/29/16 19:30 103 H 114/69 94 L 09/29/16 19:15 100 16 121/70 93 L 09/29/16 19:00 103 H 16 125/78 91 L 09/29/16 18:45 100 16 124/59 94 L 09/29/16 18:30 104 H 16 120/57 94 L 09/29/16 18:15 99 16 114/67 94 L 09/29/16 18:00 96.8 F L 97 16 135/60 93 L 09/29/16 17:26 82 16 127/52 94 L 09/29/16 17:11 83 18 122/60 93 L Intake and Output 09/30/16 09/30/16 09/30/16 06:59 14:59 22:59 Intake Total 100 Balance 100 Intake: IV 100 ceFAZolin 3 gm In Sodium 100 Chloride 0.9% 100 ml @ 100 mls/hr IVPB Q8HR [facility] Rx#:[id number] Other: Voiding Method Toilet # Voids 1 PHYSICAL EXAMINATION: GENERAL: The patient is alert and oriented x3, not in any acute distress. Well developed, well nourished. HEENT: Pupils are round and equally reacting to light. EOMI. No scleral icterus. No conjunctival pallor. Normocephalic, atraumatic. No pharyngeal erythema. No thyromegaly. CARDIOVASCULAR: S1 and S2 present. No murmurs, rubs, or gallops. PULMONARY: Chest is clear to auscultation, no wheezing or crackles. ABDOMEN: Soft, nontender, nondistended, normoactive bowel sounds. No palpable organomegaly. MUSCULOSKELETAL: Deferred to orthopedic surgery EXTREMITIES: No cyanosis, clubbing, or pedal edema. NEUROLOGICAL: Gross neurological examination did not reveal any focal deficits. SKIN: No rashes. Results CBC & Chem 7: 09/30/16 06:29 Labs: Abnormal Lab Results - Last 24 Hours (Table) 09/30/16 Range/Units 06:29 WBC 16.5 H (3.8-10.6) k/uL RDW 15.6 H (11.5-15.5) % Neutrophils # 14.9 H (1.3-7.7) k/uL Assessment and Plan Plan: #1 leukocytosis: Without any signs or symptoms of infection no further intervention or antibiotic cement necessary. #2 right knee arthroplasty: Without any complications pain management and DVT prophylaxis as per primary service. #3 hypothyroidism for which patient is on methimazole which is being continued will get TSH. #4 gastroesophageal reflux disease For letting Ace in this patient's care
--- NOTE | 2016-09-30 20:10 | P.PN ---
Progress Note - Text . Postoperative day # 1 status post total knee arthroplasty, and adductor canal catheter placed for postoperative analgesia, currently at ropivacaine 0.2 % 8 mL per hour and continuous infusion, catheter site local. There is no erythema, and there is no tenderness, visual analogue scale is 4/10, patient using oral pain medication for breakthrough pain. Assessment and plan= Acute postoperative pain, adductor canal catheter for pain control, pain is well controlled we'll continue the same management.
[2016-09-30] MEDS: SENNOSIDES-DOCUSATE SODIUM 1 EACH TAB PO SCH (20:47)
[2016-09-30] MEDS: MELATONIN 5 MG TABLET PO SCH (20:47)
[2016-09-30] MEDS: FAMOTIDINE 20 MG TAB PO SCH (20:47)
[2016-10-01] MEDS: HYDROcodone/APAP 5-325MG 1 EACH TAB PO PRN ×3 (01:48→17:05)
[2016-10-01] MEDS: ASPIRIN 325 MG TAB PO SCH (07:59)
[2016-10-01] MEDS: MELOXICAM 7.5 MG TAB PO SCH (08:00)
[2016-10-01] MEDS: CITALOPRAM HYDROBROMIDE 20 MG TAB PO SCH (08:00)
[2016-10-01] MEDS: METHIMAZOLE 5 MG TAB PO SCH (08:00)
[2016-10-01] MEDS: PANTOPRAZOLE 40 MG TABLET PO SCH (08:00)
[2016-10-01 10:16] VITALS: PULSE 74; RESP 14; TEMP 98.1
[2016-10-01 10:17] VITALS: BP 130/80
[2016-10-04] MEDS ORDERED: ERGOCALCIFEROL 50,000 UNIT CAP PO SCH (09:00)
== END 2016-10-01 15:40 | disposition home health service (06) | DRG 470 ==
LOC: 2ORMAIN 12:22 → 3SUR 16:41
PROVIDERS: ADMIT Orthopaedic Surgery; ATTEND Orthopaedic Surgery
PROC: 0SRC0J9 Replacement of Right Knee Joint with Synthetic Substitute, Cemented, Open Approach (ICD-10-PCS; principal; 2016-09-29 13:45)
DX: M17.11 Unilateral primary osteoarthritis, right knee (principal); F32.9 Major depressive disorder, single episode, unspecified; E03.9 Hypothyroidism, unspecified; D72.829 Elevated white blood cell count, unspecified; G89.18 Other acute postprocedural pain; K21.9 Gastro-esophageal reflux disease without esophagitis; Z85.820 Personal history of malignant melanoma of skin; Z79.899 Other long term (current) drug therapy; Z87.891 Personal history of nicotine dependence
CPT/HCPCS: 84443; 85025; 88300

== ENCOUNTER → 2016-11-22 | Outpatient (CLI) | payer BC ==
[2016-11-22 14:21] VITALS: BP 138/81; PULSE 87; RESP 16; TEMP 98.4
--- NOTE | 2016-12-09 23:39 | P.PN ---
Progress Note - Text DATE OF SERVICE: 11/22/2016 CHIEF COMPLAINT: Bariatric assessment. HISTORY OF PRESENT ILLNESS: Natali Garcia is a 56-year-old female who presented to the bariatric Center April,. She has a personal history of adjustable gastric band and has developed complications from adjustable gastric band including severe esophageal reflux disease. As a result, she had her band removed. She is 2 months out from a right total knee arthroplasty. She still reports severe reflux disease. Now she presented for further evaluation and management. As a result of her obesity, she developed hypertension including end-stage osteoarthritis of the knees. At a height of 5 foot 7 1/4 inches, her ideal body weight is 158 pounds. Today had weighed 278 pounds. She is 120 pounds overweight. Body mass index has increased from 41.9 to 43.3. PAST MEDICAL HISTORY: 1. Osteoarthritis of the bilateral knees. 2. Gastroesophageal reflux disease. 3. Morbid obesity. 4. Melanoma along the forehead. PAST SURGICAL HISTORY: 1. History of adjustable gastric band. 2. . 3. Cholecystectomy. 4. Upper endoscopy. 5. Right total knee arthroplasty, September 2016. MEDICATIONS: 1. Mobic. 2. Vitamin B complex. 3. Zantac. 4. Protonix. 5. Tapazole. 6. Melatonin. 7. Citalopram. ALLERGIES: Denies. SOCIAL HISTORY: Lifelong nontobacco user. She is . FAMILY HISTORY: Notable for morbid obesity. Also, no reports of esophageal cancer or stomach cancer. REVIEW OF SYSTEMS: GASTROINTESTINAL: Severe gastroesophageal reflux disease. Denies any blood in stools. Findings consistent with diaphragmatic hiatal hernia. CONSTITUTIONAL: Micro body weight of 158 pounds. Initially 269 pounds, now up to 278 pound. She is 120 pounds overweight. HEENT: Denies any trouble with vision or hearing. No reports of dysphagia. ENDOCRINE: No reports of diabetes or thyroid disorder. RESPIRATORY: Has daytime snoring. No dyspnea on exertion. CARDIOVASCULAR: History of hypertension, untreated. No reports of heart attack. MUSCULOSKELETAL: Has diffuse osteoarthritis. Has endstage osteoarthritis of bilateral knees, pending knee replacement of the left. NEURO: No previous stroke or seizure disorders. PSYCH: No reports of active depression or suicidality. HEMATOLOGIC: No reports of easy bruising or bleeding. SKIN: Personal history of skin cancer melanoma along the forehead. No rash. PHYSICAL EXAM: VITAL SIGNS: 5 feet 7-1/4, 278 pounds. Body mass index 43.3. Vital Signs Temp 98.4 F 11/22/16 14:14 Pulse 87 11/22/16 14:14 Resp 16 11/22/16 14:14 BP 138/81 11/22/16 14:14 Pulse Ox GENERAL: Well-developed female in no acute distress. HEENT: No scleral icterus. Extraocular movements grossly intact. Moist buccal mucosa. NECK: Supple without lymphadenopathy. CHEST: Nonlabored respirations. Equal bilateral excursions. CARDIOVASCULAR: Regular rate and rhythm. ABDOMEN: Obese, soft, nontender, nondistended. MUSCULOSKELETAL: No clubbing, cyanosis, or edema. NEURO: No focal or lateralizing signs. Cranial nerves II to XII grossly intact. PSYCH: Appropriate affect. Alert and oriented to person, place, and time. SKIN: Good skin turgor. Well perfused. STUDIES: Upper endoscopy was reviewed, demonstrating findings consistent with diaphragmatic hiatal hernia including chronic gastritis. There is esophagitis also identified. Grade 4 lower esophageal with LA grade C erosive esophagitis confirmed. 5 cm diaphragmatic hiatal hernia also confirmed. ASSESSMENT: 1. Morbid obesity due to excess calories. 2. Body mass index of 43.3. 3. Erosive esophagitis. 4. Diaphragmatic hiatal hernia. 5. Complications from adjustable gastric band. 6. Obstructive sleep apnea. 7. Hypertensive heart disease. 8. End-stage bilateral knee osteoarthritis. 9. Gastroesophageal reflux disease. 10. Vitamin D deficiency. PLAN: 1. With the severity of her gastroesophageal reflux disease including known hiatal hernia which is symptomatic, I would recommend at least a hiatal hernia repair during her waiting process for bariatric surgery. 2. Reglan 10 mg 3 times a day has been prescribed to also help with her underlying reflux. 3. Should she elect for a laparoscopic hiatal hernia repair with mesh, recommend manometry studies. 4. DVT prophylaxis. 5. Antibiotic prophylaxis. 6. She is still evaluating for gastric bypass in the interim.
== END | disposition home or self-care (01) ==
LOC: BARWHC3 13:58
PROVIDERS: ATTEND Surgery Plastic and Reconstructive Surgery
DX: Z01.818 Encounter for other preprocedural examination (principal); E66.01 Morbid (severe) obesity due to excess calories; K44.9 Diaphragmatic hernia without obstruction or gangrene; K22.10 Ulcer of esophagus without bleeding; G47.33 Obstructive sleep apnea (adult) (pediatric); I11.9 Hypertensive heart disease without heart failure; M17.0 Bilateral primary osteoarthritis of knee; K21.9 Gastro-esophageal reflux disease without esophagitis; E55.9 Vitamin D deficiency, unspecified; K95.09 Other complications of gastric band procedure; Z68.41 Body mass index [BMI] 40.0-44.9, adult
CPT/HCPCS: 99211

== ENCOUNTER 2016-12-16 14:21 | Emergency (ER) | payer BC ==
[2016-12-16] MEDS ORDERED: SODIUM CHLORIDE 0.9% 1,000 ML IV STA (14:58)
[2016-12-16 16:14] LABS: Basophils # (A) 0.1 k/uL (0-0.2); Basophils % (A) 1 %; CH 27.7; CHCM 31.1; Eosinophils # (A) 0.2 k/uL (0-0.7); Eosinophils % (A) 1 %; HCT 43.8 % (34.0-46.0); HDW 2.08; HGB 13.9 gm/dL (11.4-16.0); Luc # (Auto) 0.21; Luc % (Auto) 1; Lymphocytes # (A) 2.7 k/uL (1.0-4.8); Lymphocytes % (A) 18 %; MCH 28.3 pg (25.0-35.0); MCHC 31.7 g/dL (31.0-37.0); MCV 89.3 fL (80.0-100.0); Monocytes # (A) 0.5 k/uL (0-1.0); Monocytes % (A) 3 %; Neutrophils # (A) 11.3 k/uL (1.3-7.7); Neutrophils % (A) 76 %; RBC 4.91 m/uL (3.80-5.40); RDW 14.9 % (11.5-15.5); WBC 14.9 k/uL (3.8-10.6); WBC (Perox) 15.58
--- NOTE | 2016-12-16 16:22 | ED ---
General Adult HPI - General Chief complaint: Recheck/Abnormal Lab/Rx Stated complaint: high sugars-sent by [employer] Time Seen by Provider: 12/16/16 14:30 Source: patient, RN notes reviewed, old records reviewed Mode of arrival: ambulatory Limitations: no limitations - History of Present Illness Initial comments: This is a 56-year-old female to the ER for evaluation. Patient comes in for evaluation of multiple complaints. Patient states she has occasional blurry vision. Increased fatigue weakness, decreased urination. Patient does admit some little anhedonia and depression. Patient's daughter recently got about 3 weeks ago and symptoms have been persistent but episodic ever since. She did see her family doctor with no significant changes a did try to change in psychiatric medications with no help, patient somewhat expressing was sent to ER for evaluation, patient did have elevated blood sugar. Patient denies any headaches. No chest pain or shortness of breath. No other complaints or issues - Related Data Home Medications Medication Instructions Recorded Confirmed Methimazole [Tapazole] 5 mg PO DAILY 01/04/16 12/16/16 Pantoprazole Sodium [Protonix] 40 mg PO BID 03/01/16 12/16/16 Citalopram Hydrobromide 40 mg PO DAILY 04/14/16 12/16/16 [Citalopram HBr] Melatonin 5 mg PO HS 09/29/16 12/16/16 Meloxicam [Mobic] 15 mg PO DAILY 12/16/16 12/16/16 Previous Rx's Medication Instructions Recorded Ranitidine HCl [Zantac] 300 mg PO HS #30 tab 04/19/16 Metoclopramide [Reglan] 10 mg PO ACHS #30 tab 11/22/16 Allergies Allergy/AdvReac Type Severity Reaction Status Date / Time No Known Allergies Allergy Verified 12/16/16 14:45 Review of Systems ROS Statement: Those systems with pertinent positive or pertinent negative responses have been documented in the HPI. ROS Other: All systems not noted in ROS Statement are negative. Past Medical History Past Medical History: Cancer, GERD/Reflux, Thyroid Disorder Additional Past Medical History / Comment(s): HX MELANOMA ON FOREHEAD. USING CPAP. HIATAL HERNIA. VARICOSE VEINS. UTI CURRENT, TO GET PO AB ORDERED TODAY BY DR MIRAMONTES'S OFFICE. History of Any Multi-Drug Resistant Organisms: None Reported Past Surgical History: Bariatric Surgery, Section, Cholecystectomy Additional Past Surgical History / Comment(s): LAP BAND, LATER REMOVED. RT KNEE SCOPE X2. EGD. trk Past Anesthesia/Blood Transfusion Reactions: No Reported Reaction Past Psychological History: No Psychological Hx Reported Smoking Status: Never smoker Past Alcohol Use History: None Reported Past Drug Use History: None Reported - Past Family History Father Family Medical History: Cancer Sister(s) Family Medical History: Cancer General Exam Limitations: no limitations General appearance: alert, in no apparent distress Head exam: Present: atraumatic, normocephalic, normal inspection Eye exam: Present: normal appearance, PERRL, EOMI. Absent: scleral icterus, conjunctival injection, periorbital swelling ENT exam: Present: normal exam, mucous membranes moist Neck exam: Present: normal inspection. Absent: tenderness, meningismus, lymphadenopathy Respiratory exam: Present: normal lung sounds bilaterally. Absent: respiratory distress, wheezes, rales, rhonchi, stridor Cardiovascular Exam: Present: regular rate, normal rhythm, normal heart sounds. Absent: systolic murmur, diastolic murmur, rubs, gallop, clicks GI/Abdominal exam: Present: soft, normal bowel sounds. Absent: distended, tenderness, guarding, rebound, rigid Extremities exam: Present: normal inspection, full ROM, normal capillary refill. Absent: tenderness, pedal edema, joint swelling, calf tenderness Back exam: Present: normal inspection Neurological exam: Present: alert, oriented X3, CN II-XII intact Psychiatric exam: Present: normal affect, normal mood Skin exam: Present: warm, dry, intact, normal color. Absent: rash Course Vital Signs 12/16/16 14:22 Temperature 98.5 F Pulse Rate 94 Respiratory 20 Rate Blood Pressure 144/90 O2 Sat by Pulse 97 Oximetry - Reevaluation(s) Reevaluation #1: 12/16/16 16:20 Patient's transfer as reviewed from [facility] Reevaluation #2: 12/16/16 17:55 Patient states prevision in her eye has resolved. She denies any complaints at this time Medical Decision Making - Medical Decision Making 56. ER for evaluation of multiple symptoms. Patient extensive workup here in the emergency room which improved to be nondiagnostic. Patient is informed of all results. Questions are answered. Patient's okay for discharge home - Lab Data Result diagrams: 12/16/16 15:25 12/16/16 15:25 Lab Results 12/16/16 12/16/16 12/16/16 Range/Units 15:25 15:25 15:25 WBC 14.9 H (3.8-10.6) k/uL RBC 4.91 (3.80-5.40) m/uL Hgb 13.9 (11.4-16.0) gm/dL Hct 43.8 (34.0-46.0) % MCV 89.3 (80.0-100.0) fL MCH 28.3 (25.0-35.0) pg MCHC 31.7 (31.0-37.0) g/dL RDW 14.9 (11.5-15.5) % Plt Count 291 (150-450) k/uL Neutrophils % 76 % Lymphocytes % 18 % Monocytes % 3 % Eosinophils % 1 % Basophils % 1 % Neutrophils # 11.3 H (1.3-7.7) k/uL Lymphocytes # 2.7 (1.0-4.8) k/uL Monocytes # 0.5 (0-1.0) k/uL Eosinophils # 0.2 (0-0.7) k/uL Basophils # 0.1 (0-0.2) k/uL PT (9.0-12.0) sec INR (<1.2) APTT (22.0-30.0) sec D-Dimer (<0.60) mg/L FEU Sodium 140 (137-145) mmol/L Potassium 4.1 (3.5-5.1) mmol/L Chloride 103 (98-107) mmol/L Carbon Dioxide 27 (22-30) mmol/L Anion Gap 10 mmol/L BUN 25 H (7-17) mg/dL Creatinine 0.93 (0.52-1.04) mg/dL Est GFR (MDRD) Af Amer >60 (>60 ml/min/1.73 sqM) Est GFR (MDRD) Non-Af >60 (>60 ml/min/1.73 sqM) Glucose 162 H (74-99) mg/dL Calcium 9.6 (8.4-10.2) mg/dL Phosphorus 4.0 (2.5-4.5) mg/dL Magnesium 2.2 (1.6-2.3) mg/dL Total Bilirubin 0.6 (0.2-1.3) mg/dL AST 19 (14-36) U/L ALT 34 (9-52) U/L Alkaline Phosphatase 130 H (38-126) U/L Total Creatine Kinase 44 (30-135) U/L CK-MB (CK-2) 0.3 (0.0-2.4) ng/mL CK-MB (CK-2) Rel Index 0.7 Troponin I <0.012 (0.000-0.034) ng/mL C-Reactive Protein 11.4 H (<10.0) mg/L NT-Pro-B Natriuret Pep pg/mL Total Protein 6.9 (6.3-8.2) g/dL Albumin 4.2 (3.5-5.0) g/dL TSH 3.650 (0.465-4.680) mIU/L Cortisol 6 ug/dL Urine Color Urine Appearance (Clear) Urine pH (5.0-8.0) Ur Specific Granite (1.001-1.035) Urine Protein (Negative) Urine Glucose (UA) (Negative) Urine Ketones (Negative) Urine Blood (Negative) Urine Nitrite (Negative) Urine Bilirubin (Negative) Urine Urobilinogen (<2.0) mg/dL Ur Leukocyte Esterase (Negative) Urine RBC (0-5) /hpf Urine WBC (0-5) /hpf Ur Squamous Epith Cells (0-4) /hpf Amorphous Sediment (None) /hpf Urine Bacteria (None) /hpf Urine Mucus (None) /hpf 12/16/16 12/16/16 12/16/16 Range/Units 15:25 15:25 15:25 WBC (3.8-10.6) k/uL RBC (3.80-5.40) m/uL Hgb (11.4-16.0) gm/dL Hct (34.0-46.0) % MCV (80.0-100.0) fL MCH (25.0-35.0) pg MCHC (31.0-37.0) g/dL RDW (11.5-15.5) % Plt Count (150-450) k/uL Neutrophils % % Lymphocytes % % Monocytes % % Eosinophils % % Basophils % % Neutrophils # (1.3-7.7) k/uL Lymphocytes # (1.0-4.8) k/uL Monocytes # (0-1.0) k/uL Eosinophils # (0-0.7) k/uL Basophils # (0-0.2) k/uL PT 10.4 (9.0-12.0) sec INR 1.0 (<1.2) APTT 23.2 (22.0-30.0) sec D-Dimer 1.75 H (<0.60) mg/L FEU Sodium (137-145) mmol/L Potassium (3.5-5.1) mmol/L Chloride (98-107) mmol/L Carbon Dioxide (22-30) mmol/L Anion Gap mmol/L BUN (7-17) mg/dL Creatinine (0.52-1.04) mg/dL Est GFR (MDRD) Af Amer (>60 ml/min/1.73 sqM) Est GFR (MDRD) Non-Af (>60 ml/min/1.73 sqM) Glucose (74-99) mg/dL Calcium (8.4-10.2) mg/dL Phosphorus (2.5-4.5) mg/dL Magnesium (1.6-2.3) mg/dL Total Bilirubin (0.2-1.3) mg/dL AST (14-36) U/L ALT (9-52) U/L Alkaline Phosphatase (38-126) U/L Total Creatine Kinase (30-135) U/L CK-MB (CK-2) (0.0-2.4) ng/mL CK-MB (CK-2) Rel Index Troponin I (0.000-0.034) ng/mL C-Reactive Protein (<10.0) mg/L NT-Pro-B Natriuret Pep 56 pg/mL Total Protein (6.3-8.2) g/dL Albumin (3.5-5.0) g/dL TSH (0.465-4.680) mIU/L Cortisol ug/dL Urine Color Yellow Urine Appearance Cloudy H (Clear) Urine pH 6.5 (5.0-8.0) Ur Specific Granite 1.017 (1.001-1.035) Urine Protein Negative (Negative) Urine Glucose (UA) Negative (Negative) Urine Ketones Negative (Negative) Urine Blood Trace H (Negative) Urine Nitrite Negative (Negative) Urine Bilirubin Negative (Negative) Urine Urobilinogen <2.0 (<2.0) mg/dL Ur Leukocyte Esterase Small H (Negative) Urine RBC 3 (0-5) /hpf Urine WBC 16 H (0-5) /hpf Ur Squamous Epith Cells 14 H (0-4) /hpf Amorphous Sediment Rare H (None) /hpf Urine Bacteria Rare H (None) /hpf Urine Mucus Rare H (None) /hpf - Radiology Data Radiology results: report reviewed (CTA chest is negative), image reviewed Disposition Clinical Impression: Weakness, Fatigue, Monocular diplopia Disposition: HOME SELF-CARE Condition: Good Instructions: Weakness (ED), Fatigue (ED) Referrals: Humberto Mabry MD [Primary Care Provider] - 1-2 days Berny Goodson MD [STAFF PHYSICIAN] - 1-2 days Tristin Cardenas MD [STAFF PHYSICIAN] - 1-2 days
[2016-12-16 16:25] LABS: Amorphous Sediment,Urine Rare /hpf; Appearance,Urine Cloudy (Clear); Bacteria,Urine Rare /hpf; Bilirubin,Urine Negative (Negative); Glucose,Urine (UA) Negative (Negative); Ketones,Urine Negative (Negative); Leukocyte Esterase,Urine Small (Negative); Mucus,Urine Rare /hpf; Nitrite,Urine Negative (Negative); PH, Urine 6.5 (5.0-8.0); Particle Count 2776; Protein,Urine Negative (Negative); RBC,Urine 3 /hpf (0-5); Specific Gravity,Urine 1.017 (1.001-1.035); Squamous Epithelial Cell,Urine 14 /hpf (0-4); UA Billing (MACRO vs. MICRO) MICRO; Urobilinogen,Urine <2.0 mg/dL (<2.0); WBC,Urine 16 /hpf (0-5)
[2016-12-16 16:27] LABS: Partial Thromboplastin Time 23.2 sec (22.0-30.0); Prothrombin Time 10.4 sec (9.0-12.0)
[2016-12-16 16:29] LABS: Creatine Kinase 44 U/L (30-135)
[2016-12-16 16:31] LABS: ALT 34 U/L (9-52); AST 19 U/L (14-36); Alkaline Phosphatase 130 U/L (38-126); Anion Gap 10 mmol/L; Blood Urea Nitrogen 25 mg/dL (7-17); Calcium 9.6 mg/dL (8.4-10.2); Carbon Dioxide 27 mmol/L (22-30); Chloride 103 mmol/L (98-107); Glucose 162 mg/dL (74-99); Magnesium 2.2 mg/dL (1.6-2.3); Non-African American GFR(MDRD) >60 (>60 ml/min/1.73 sqM); Potassium 4.1 mmol/L (3.5-5.1); Sodium 140 mmol/L (137-145); Total Bilirubin 0.6 mg/dL (0.2-1.3); Total Protein 6.9 g/dL (6.3-8.2)
[2016-12-16 16:42] LABS: Creatine Kinase MB 0.3 ng/mL (0.0-2.4); Troponin I <0.012 ng/mL (0.000-0.034)
[2016-12-16] MEDS ORDERED: RX INFO: IV CONTRAST WAS GIVEN 1 EACH MISC MISCELLANE PRN (17:03)
[2016-12-16 17:19] LABS: C Reactive Protein 11.4 mg/L (<10.0)
--- NOTE | 2016-12-16 17:44 | CT ---
EXAMINATION TYPE: CT angio chest DATE OF EXAM: 12/16/2016 5:30 PM COMPARISON: NONE HISTORY: Weakness, dizziness and elevated D-Dimer CT DLP: 460.8 mGycm Automated exposure control for dose reduction was used. CONTRAST: CTA scan of the thorax is performed with IV Contrast, patient injected with 100 mL of Omnipaque 350, pulmonary embolism protocol. . FINDINGS: LUNGS: Mild dependent atelectasis is noted. There is no concerning parenchymal mass or nodule identif ied. There is no pleural effusion or pneumothorax seen. The tracheobronchial tree is patent. MEDIASTINUM: There is satisfactory enhancement of the pulmonary artery and its branches, there is no CT evidence for pulmonary embolism. Main pulmonary artery is slightly dilated up to 4.0 cm in diamete r. There are no greater than 1 cm hilar or mediastinal lymph nodes. No pericardial effusion is seen . OTHER: No additional significant abnormality is seen. Postoperative changes are noted to the fundus of the stomach as well as prior cholecystectomy. IMPRESSION: 1. NO EVIDENCE OF PULMONARY EMBOLI. 2. SLIGHTLY DILATED MAIN PULMONARY ARTERY COULD BE DUE TO PULMONARY HYPERTENSION.
[2016-12-16 18:09] VITALS: BP 160/73; PULSE 66; RESP 16; TEMP 97.9
[2016-12-16 22:33] LABS: Hemoglobin A1C 6.4 % (4.2-6.1)
== END 2016-12-16 18:16 | disposition home or self-care (01) ==
LOC: EC 14:21
DX: H53.2 Diplopia (principal); R53.1 Weakness; R53.83 Other fatigue; E07.9 Disorder of thyroid, unspecified; K21.9 Gastro-esophageal reflux disease without esophagitis; Z79.1 Long term (current) use of non-steroidal anti-inflammatories (NSAID); Z79.899 Other long term (current) drug therapy
CPT/HCPCS: 99284 ×2; 96360 ×2; 96361 ×3; 36415; 93005; 85379; 83880; 80053; 84443; 82533; 83036; 82550; 82553; 83735; 84100; 84484; 85025; 85610; 85730; 86140; 81001; 87040; 87086; 71275; Q9967

== ENCOUNTER → 2017-03-19 | Outpatient (CLI) | payer BC ==
[2017-03-19 13:14] LABS: Basophils % (A) 0 %; Eosinophils # (A) 0.3 k/uL (0-0.7); Eosinophils % (A) 4 %; HCT 41.3 % (34.0-46.0); HGB 13.1 gm/dL (11.4-16.0); Hypochromasia Slight; Lymphocytes # (A) 1.8 k/uL (1.0-4.8); Lymphocytes % (A) 24 %; MCH 27.5 pg (25.0-35.0); MCHC 31.6 g/dL (31.0-37.0); Mean Platelet Volume 7.2; Monocytes # (A) 0.3 k/uL (0-1.0); Monocytes % (A) 4 %; Neutrophils # (A) 4.9 k/uL (1.3-7.7); Neutrophils % (A) 66 %; Platelet Count 298 k/uL (150-450); RBC 4.75 m/uL (3.80-5.40); RDW 15.8 % (11.5-15.5); WBC 7.4 k/uL (3.8-10.6)
[2017-03-19 13:36] LABS: ALT 70 U/L (9-52); AST 42 U/L (14-36); Albumin 4.5 g/dL (3.5-5.0); Alkaline Phosphatase 125 U/L (38-126); Anion Gap 11 mmol/L; Blood Urea Nitrogen 25 mg/dL (7-17); Carbon Dioxide 29 mmol/L (22-30); Chloride 102 mmol/L (98-107); Glucose 110 mg/dL (74-99); Sodium 142 mmol/L (137-145); Total Bilirubin 0.4 mg/dL (0.2-1.3); Total Protein 6.9 g/dL (6.3-8.2)
== END | disposition home or self-care (01) ==
LOC: LABPAT 12:38
PROVIDERS: ATTEND Surgery Plastic and Reconstructive Surgery
DX: Z01.812 Encounter for preprocedural laboratory examination (principal)
CPT/HCPCS: 36415; 80053; 85025

== ENCOUNTER 2017-03-26 05:54 | Inpatient (IN) | payer BC ==
--- NOTE | 2017-03-26 05:36 | P.GSHP ---
History of Present Illness H&P Date: 03/26/17 DATE OF SERVICE: 03/26/2017 CHIEF COMPLAINT: Bariatric assessment. HISTORY OF PRESENT ILLNESS: Natali Garcia is a 57-year-old female who presented [facility],. She has a personal history of adjustable gastric band and has developed complications from adjustable gastric band including severe esophageal reflux disease. As a result, she had her band removed. She still reports severe reflux disease. Now she presented for further evaluation and management. As a result of her obesity, she developed hypertension, obstructive sleep apnea, including end-stage osteoarthritis of the knees. At a height of 5 foot 7 1/4 inches, her ideal body weight is 158 pounds. Previous weight 278 pounds. Current weight of 260 pounds. She is 102 pounds overweight. Body mass index has increased from 43.3 to 40.6. PAST MEDICAL HISTORY: 1. Osteoarthritis of the bilateral knees. 2. Gastroesophageal reflux disease. 3. Morbid obesity. 4. Melanoma along the forehead. PAST SURGICAL HISTORY: 1. History of adjustable gastric band. 2. . 3. Cholecystectomy. 4. Upper endoscopy. 5. Right total knee arthroplasty, September 2016. MEDICATIONS: 1. Mobic. 2. Vitamin B complex. 3. Zantac. 4. Protonix. 5. Tapazole. 6. Melatonin. 7. Citalopram. ALLERGIES: Denies. SOCIAL HISTORY: Lifelong nontobacco user. She is . FAMILY HISTORY: Notable for morbid obesity. Also, no reports of esophageal cancer or stomach cancer. REVIEW OF SYSTEMS: GASTROINTESTINAL: Severe gastroesophageal reflux disease. Denies any blood in stools. Findings consistent with diaphragmatic hiatal hernia. CONSTITUTIONAL: [place] body weight of 158 pounds. Initially 278 pounds, now 260 pound. She is 102 pounds overweight. BMI down from 43.3 to 40.6. HEENT: Denies any trouble with vision or hearing. No reports of dysphagia. ENDOCRINE: No reports of diabetes or thyroid disorder. RESPIRATORY: Has daytime snoring. No dyspnea on exertion. CARDIOVASCULAR: History of hypertension, untreated. No reports of heart attack. MUSCULOSKELETAL: Has diffuse osteoarthritis. Has endstage osteoarthritis of bilateral knees, pending knee replacement of the left. NEURO: No previous stroke or seizure disorders. PSYCH: No reports of active depression or suicidality. HEMATOLOGIC: No reports of easy bruising or bleeding. SKIN: Personal history of skin cancer melanoma along the forehead. No rash. PHYSICAL EXAM: VITAL SIGNS: 5 feet 7-1/4, 2760 pounds. Body mass index 40.6. GENERAL: Well-developed female in no acute distress. HEENT: No scleral icterus. Extraocular movements grossly intact. Moist buccal mucosa. NECK: Supple without lymphadenopathy. CHEST: Nonlabored respirations. Equal bilateral excursions. CARDIOVASCULAR: Regular rate and rhythm. ABDOMEN: Obese, soft, nontender, nondistended. MUSCULOSKELETAL: No clubbing, cyanosis, or edema. NEURO: No focal or lateralizing signs. Cranial nerves II to XII grossly intact. PSYCH: Appropriate affect. Alert and oriented to person, place, and time. SKIN: Good skin turgor. Well perfused. STUDIES: Upper endoscopy was reviewed, demonstrating findings consistent with diaphragmatic hiatal hernia including chronic gastritis. There is esophagitis also identified. Grade 4 lower esophageal with LA grade C erosive esophagitis confirmed. 5 cm diaphragmatic hiatal hernia also confirmed. ASSESSMENT: 1. Morbid obesity due to excess calories. 2. Body mass index of 43.3. 3. Erosive esophagitis. 4. Diaphragmatic hiatal hernia. 5. Complications from adjustable gastric band. 6. Obstructive sleep apnea. 7. Hypertensive heart disease. 8. End-stage bilateral knee osteoarthritis. 9. Gastroesophageal reflux disease. 10. Vitamin D deficiency. PLAN: 1. Patient has elected for Tyler-en-Y gastric bypass. She has increased risks related to, infection, stricture, nutritional deficiencies as she is a revision from a band. Recommend robotic-assisted approach possible hiatal hernia repair. 2. DVT prophylaxis. 3. Antibiotic prophylaxis. Past Medical History Past Medical History: Cancer, GERD/Reflux, Osteoarthritis (OA), Sleep Apnea/CPAP /BIPAP Additional Past Medical History / Comment(s): HX MELANOMA ON FOREHEAD. HIATAL HERNIA. VARICOSE VEINS. History of Any Multi-Drug Resistant Organisms: None Reported Past Surgical History: Bariatric Surgery, Section, Cholecystectomy, Joint Replacement Additional Past Surgical History / Comment(s): RIGHT TOTAL KNEE, LAP BAND, LATER REMOVED. RT KNEE SCOPE X2. EGD. Past Anesthesia/Blood Transfusion Reactions: No Reported Reaction Smoking Status: Former smoker - Past Family History Father Family Medical History: Cancer Sister(s) Family Medical History: Cancer Medications and Allergies Home Medications Medication Instructions Recorded Confirmed Type Pantoprazole Sodium [Protonix] 40 mg PO BID 03/01/16 03/19/17 History Citalopram Hydrobromide 40 mg PO DAILY 04/14/16 03/19/17 History [Citalopram HBr] Ranitidine HCl [Zantac] 300 mg PO HS #30 tab 04/19/16 03/19/17 Rx Melatonin 5 mg PO HS 09/29/16 03/19/17 History Meloxicam [Mobic] 15 mg PO DAILY 12/16/16 03/19/17 History Allergies Allergy/AdvReac Type Severity Reaction Status Date / Time No Known Allergies Allergy Verified 03/19/17 16:01
[~2017-03-26 05:54] MED LIST changes: -ACETAMINOPHEN TAB 500 MG TAB PO ONE; +HYDROmorphone 0.5 MG/0.5 ML SYRINGE IVP PRN; -HYDROmorphone 1 MG/ML 1 ML SYRINGE IVP PRN; -MELOXICAM 7.5 MG TAB PO ONE; -MIDAZOLAM 2 MG/2 ML VIAL IV PRN; -ROPIVACAINE 246.25 MG, EPINEPHrine 0.5 MG, KETOROLAC 30 MG, cloNIDine HCL/PF 80 MCG, WA... MISCELLANE ONE; -TRANEXAMIC ACID 1,000 MG in SODIUM CHLORIDE 0.9% 100 ML IVPB ONE; -ceFAZolin 3 GM in SODIUM CHLORIDE 0.9% 100 ML IVPB ONE; +ceFAZolin IN SWFI 2 GM/20 ML SYRINGE IVP ONE
[2017-03-26] MEDS ORDERED: ENOXAPARIN 40 MG/0.4 ML SYRINGE SQ STA (06:15)
[2017-03-26] MEDS ORDERED: PANTOPRAZOLE 40 MG/10 ML VIAL IV STA (06:15)
[2017-03-26] MEDS ORDERED: CHLORHEXIDINE GLUCONATE 15 ML CUP MUCOUS MEM ONE (06:15)
[2017-03-26] MEDS ORDERED: SCOPOLAMINE 1.5MG/72HR PATCH TRANSDERM STA (06:15)
[2017-03-26] MEDS ORDERED: LIDOCAINE 1% 20 ML VIAL (10MG/ML) FOR IV START INTRADERMA ONE ×2 (07:06)
[2017-03-26] MEDS: LACTATED RINGERS 1,000 ML IV SCH (07:06)
[2017-03-26] MEDS ORDERED: LIDOCAINE 1% INJ 10MG/ML (20 ML MDV) ONE (07:32)
[2017-03-26] MEDS ORDERED: LABETALOL 5 MG/ML VIAL MDV ONE (07:32)
[2017-03-26] MEDS ORDERED: fentaNYL (PF) 50 MCG/ML 2 ML AMP ONE (07:32)
[2017-03-26] MEDS ORDERED: ONDANSETRON 4 MG/2 ML VIAL ONE (07:32)
[2017-03-26] MEDS ORDERED: NEOSTIGMINE 1 MG/ML 10 ML VIAL ONE (07:32)
[2017-03-26] MEDS ORDERED: MIDAZOLAM 2 MG/2 ML VIAL ONE (07:32)
[2017-03-26] MEDS ORDERED: ROCURONIUM BROMIDE 10 MG/ML 10 ML VIAL IV ONE (07:32)
[2017-03-26] MEDS ORDERED: SUCCINYLCHOLINE CHLORIDE 100 MG/5 ML SYR IV ONE (07:32)
[2017-03-26] MEDS ORDERED: PROPOFOL 10 MG/ML 20 ML VIAL IV ONE (07:32)
[2017-03-26] MEDS ORDERED: GLYCOPYRROLATE 0.2 MG/ML 2 ML VIAL ONE (07:32)
[2017-03-26] MEDS ORDERED: BUPIVACAIN-EPI 0.5%-1:200,000 30 ML VIAL SQ ONE ×2 (07:52→08:06)
[2017-03-26] MEDS ORDERED: LACTATED RINGERS 1,000 ML IV ONE ×2 (09:37→14:15)
[2017-03-26] MEDS ORDERED: SODIUM CHLORIDE 0.9% 50 ML with ceFAZolin 2,000 MG IV ONE ×2 (12:08)
[2017-03-26] MEDS ORDERED: HYDROcodone/APAP 15 ML SOLUTION PO PRN (12:57)
[2017-03-26] MEDS ORDERED: NALOXONE 0.4 MG/ML 1 ML VIAL IV PRN (12:57)
[2017-03-26] MEDS ORDERED: HYDROmorphone 2 MG/ML 1 ML SYRINGE IVP PRN (12:57)
--- NOTE | 2017-03-26 12:57 | P.PCN ---
Date of Procedure: 03/26/17 Preoperative Diagnosis: Morbid obesity due to excess calories, complications from adjustable gastric band, severe esophageal reflux disease, BMI 41.2 Postoperative Diagnosis: Same, severe perigastric adhesions from previous adjustable gastric band Procedure(s) Performed: Robotic-assisted laparoscopic revision from adjustable gastric band to gastric bypass 65 cm biliopancreatic limb, 100 cm Tyler limb, antecolic antigastric with 25 mm Orvil; severe adhesions over 2-1/2 hours perigastric adhesions, intraoperative EGD Anesthesia: GETA, local Surgeon: Lianne Seals Estimated Blood Loss (ml): 50 Pathology: none sent Condition: stable Disposition: floor Operative Findings: Thoracic length 16.5 cm, severe perigastric adhesions from her previous adjustable gastric band causing moderate distortion of the upper pole stomach, severe adhesions also limiting view and repair of hiatal hernia, negative leak test, no reinforcement sutures needed, Eliseo wound protector use for extraction of specimens however not sent for pathology
[2017-03-26] MEDS ORDERED: HYDROmorphone 2 MG/ML 1 ML SYRINGE IVP ONE ×2 (14:15→14:38)
[2017-03-26 15:06] VITALS: BMI 41.1
[2017-03-26] MEDS: ALBUTEROL NEBULIZED 2.5 MG/3 ML INHALATION SCH ×2 (15:31→19:51)
[2017-03-26] MEDS: 0.9% NACL WITH KCL 20 MEQ/L 1,000 ML IV SCH (16:28)
[2017-03-26] MEDS: HYOSCYAMINE ORAL DROPS 1.875 MG/15 ML BOTTLE PO SCH (17:44)
[2017-03-26] MEDS: SIMETHICONE 40 MG/0.6 ML DROPS 2,000 MG/30 ML BOTTLE PO SCH (17:46)
[2017-03-27] MEDS: HYOSCYAMINE ORAL DROPS 1.875 MG/15 ML BOTTLE PO SCH ×3 (00:05→11:19)
[2017-03-27] MEDS: SIMETHICONE 40 MG/0.6 ML DROPS 2,000 MG/30 ML BOTTLE PO SCH ×3 (00:06→11:21)
[2017-03-27] MEDS: 0.9% NACL WITH KCL 20 MEQ/L 1,000 ML IV SCH ×2 (00:07→08:01)
[2017-03-27 06:35] LABS: Basophils % (A) 0 %; Eosinophils % (A) 0 %; HCT 37.3 % (34.0-46.0); HGB 11.7 gm/dL (11.4-16.0); Lymphocytes # (A) 1.4 k/uL (1.0-4.8); Lymphocytes % (A) 10 %; MCH 26.9 pg (25.0-35.0); MCHC 31.4 g/dL (31.0-37.0); MCV 85.9 fL (80.0-100.0); Mean Platelet Volume 7.3; Monocytes # (A) 0.6 k/uL (0-1.0); Monocytes % (A) 4 %; Neutrophils # (A) 11.9 k/uL (1.3-7.7); Neutrophils % (A) 85 %; Platelet Count 274 k/uL (150-450); RBC 4.34 m/uL (3.80-5.40); RDW 15.3 % (11.5-15.5); WBC 14.1 k/uL (3.8-10.6)
[2017-03-27 06:51] LABS: Anion Gap 8 mmol/L; Blood Urea Nitrogen 14 mg/dL (7-17); Calcium 9.2 mg/dL (8.4-10.2); Carbon Dioxide 29 mmol/L (22-30); Chloride 104 mmol/L (98-107); Magnesium 2.1 mg/dL (1.6-2.3); Potassium 4.3 mmol/L (3.5-5.1); Sodium 141 mmol/L (137-145)
[2017-03-27] MEDS: ALBUTEROL NEBULIZED 2.5 MG/3 ML INHALATION SCH ×2 (07:03→10:53)
[2017-03-27 07:32] VITALS: BP 118/66; RESP 14; TEMP 99
[2017-03-27] MEDS ORDERED: 0.9% NACL WITH KCL 20 MEQ/L 1,000 ML IV SCH (08:00)
--- NOTE | 2017-03-27 08:36 | FL ---
EXAMINATION TYPE: FL UGI DATE OF EXAM: 03/27/2017 COMPARISON: NONE HISTORY: Postoperative evaluation of bariatric surgery. TECHNIQUE: A single contrast UGI study is performed utilizing 2 mL of Omnipaque 350. 35 seconds of f luoroscopy time was utilized with 60 images saved. FINDINGS: [employer] image of the abdomen shows no gross abnormality. The esophagus shows normal motility and emptying into the stomach. No evidence of hiatal hernia or s tricture noted. There is mild delayed motility at the gastroesophageal junction likely representing p ostoperative edema. No evidence of gastroesophageal reflux or leak. IMPRESSION: Mild delayed transit at the gastroesophageal junction likely related to postoperative johanna ma. No evidence of leak.
--- NOTE | 2017-03-27 08:58 | P.PN ---
<Anna Heart - Last Filed: 03/27/17 08:51> Subjective Progress Note Date: 03/27/17 57-year-old female seen and examined sitting up in bed. Patient states belching but not passing gas no stool tolerating ice chips. States has been up ambulating in the [place]. Did note patient mild temp of 99 document this morning heart rate in the 80s able to use the IS achieved 1000 Postop March 26 robotic-assisted laparoscopic revision from adjustable gastric band to gastric bypass intraoperative EGD severe adhesions Objective - Vital Signs Vital signs: Vital Signs Temp 99 F 03/27/17 07:00 Pulse 84 03/27/17 07:14 Resp 14 03/27/17 07:00 BP 118/66 03/27/17 07:00 Pulse Ox 96 03/27/17 07:05 Intake & Output 03/26/17 03/27/17 03/27/17 18:59 06:59 18:59 Intake Total 2700 1575 Output Total 500 Balance 2200 1575 Weight 120.2 kg Intake: IV 2700 Intake, IV Titration 1575 Amount 0.9% NaCl with KCl 20 Meq 1575 /l 1,000 ml @ 150 mls/hr IV .Q6H40M [facility] Rx#: [id number] Output: Urine 450 Estimated Blood Loss 50 Other: Voiding Method Toilet # Voids 2 - Exam Physical exam 57-year-old female sitting up in bed taking ice chips pleasant cooperative currently denying abdominal discomfort Lungs adequate air movement bilaterally no cough noted no shortness of breath and 2 L sats are 94% Heart S1-S2 audible and regular Abdomen surgical site dressing dry no redness soft surgical tenderness appropriate not distended states belching no gas no stool no difficulty in urinating Extremities Venodyne's on to the bilateral lower extremities - Labs CBC & Chem 7: 03/27/17 06:15 03/27/17 06:15 Labs: Abnormal Lab Results - Last 24 Hours (Table) 03/27/17 Range/Units 06:15 WBC 14.1 H (3.8-10.6) k/uL Neutrophils # 11.9 H (1.3-7.7) k/uL Assessment and Plan Assessment: Impression Postop March 26 robotic-assisted laparoscopic revision from adjustable gastric band to gastric bypass Morbid obesity due to excess calories BMI 41.2 Complications from adjustable gastric band, severe esophageal reflux disease Plan Continue postop surgical care Follow-up on pending studies Pain control DVT and GI prophylaxis Further recommendations pending Dictating operative note for Dr. Seals The above impression and plan of care have been discussed and directed by signing physician. Anna Heart nurse practitioner acting as scribe for signing physician. <Lianne Seals N - Last Filed: 03/27/17 09:18> Objective - Vital Signs Vital signs: Vital Signs Temp 99 F 03/27/17 07:00 Pulse 84 03/27/17 07:14 Resp 14 03/27/17 07:00 BP 118/66 03/27/17 07:00 Pulse Ox 96 03/27/17 07:05 Intake & Output 03/26/17 03/27/17 03/27/17 18:59 06:59 18:59 Intake Total 2700 1575 Output Total 500 Balance 2200 1575 Weight 120.2 kg Intake: IV 2700 Intake, IV Titration 1575 Amount 0.9% NaCl with KCl 20 Meq 1575 /l 1,000 ml @ 150 mls/hr IV .Q6H40M [facility] Rx#: [id number] Output: Urine 450 Estimated Blood Loss 50 Other: Voiding Method Toilet # Voids 2 - Exam Heart rate at bedside is normal. Abdomen: Dressing clean, dry and intact. No cellulitis. Soft, non-distended. - Labs CBC & Chem 7: 03/27/17 06:15 03/27/17 06:15 Labs: Abnormal Lab Results - Last 24 Hours (Table) 03/27/17 Range/Units 06:15 WBC 14.1 H (3.8-10.6) k/uL Neutrophils # 11.9 H (1.3-7.7) k/uL Assessment and Plan (1) Gastric bypass status for obesity Current Visit: Yes Status: Acute Code(s): Z98.84 - BARIATRIC SURGERY STATUS SNOMED Code(s): 392978724 (2) Morbid obesity Current Visit: No Status: Acute Code(s): E66.01 - MORBID (SEVERE) OBESITY DUE TO EXCESS CALORIES SNOMED Code(s): 310048213 (3) Sleep apnea Current Visit: Yes Status: Acute Code(s): G47.30 - SLEEP APNEA, UNSPECIFIED SNOMED Code(s): 86189313 (4) Body mass index (BMI) of 40.1 to 44.9 in adult Current Visit: Yes Status: Acute Code(s): Z68.41 - BODY MASS INDEX (BMI) 40.0-44.9, ADULT SNOMED Code(s): 284973992 (5) Knee osteoarthritis Current Visit: Yes Status: Acute Code(s): M17.10 - UNILATERAL PRIMARY OSTEOARTHRITIS, UNSPECIFIED KNEE SNOMED Code(s): 908582942 (6) Hypertension Current Visit: Yes Status: Acute Code(s): I10 - ESSENTIAL (PRIMARY) HYPERTENSION SNOMED Code(s): 27984304 (7) Hyperlipidemia Current Visit: Yes Status: Acute Code(s): E78.5 - HYPERLIPIDEMIA, UNSPECIFIED SNOMED Code(s): 11988261 Plan: 1. Doing very well. 2. Discharge instructions reviewed. 3. Medical reconcilliation performed. 4. Intraoperative findings also reveiwed. 5. Discharge in 24 hrs.
[2017-03-27] MEDS ORDERED: PANTOPRAZOLE 40 MG/10 ML VIAL IV SCH (09:00)
[2017-03-27] MEDS ORDERED: ENOXAPARIN 40 MG/0.4 ML SYRINGE SQ SCH (09:00)
[2017-03-27 11:04] VITALS: PULSE 92
--- NOTE | 2017-03-28 11:58 | P.DS ---
Providers Date of admission: 03/26/17 05:54 Expected date of discharge: 03/27/17 Attending physician: Lianne Seals Primary care physician: Archie Mabry - Discharge Diagnosis(es) (1) Gastric bypass status for obesity Current Visit: Yes Status: Acute (2) Morbid obesity Current Visit: No Status: Acute (3) Sleep apnea Current Visit: Yes Status: Acute (4) Body mass index (BMI) of 40.1 to 44.9 in adult Current Visit: Yes Status: Acute (5) Knee osteoarthritis Current Visit: Yes Status: Acute (6) Hypertension Current Visit: Yes Status: Acute (7) Hyperlipidemia Current Visit: Yes Status: Acute Hospital Course: 1. Morbid obesity due to excess calories. 2. Body mass index of 43.3. 3. Erosive esophagitis. 4. Diaphragmatic hiatal hernia. 5. Complications from adjustable gastric band. 6. Obstructive sleep apnea. 7. Hypertensive heart disease. 8. End-stage bilateral knee osteoarthritis. 9. Gastroesophageal reflux disease. 10. Vitamin D deficiency. COURSE: Natali Garcia is a 57-year-old female who presented [facility] April,. She has a personal history of adjustable gastric band and has developed complications from adjustable gastric band including severe esophageal reflux disease. As a result, she had her band removed. She still reports severe reflux disease. Now she presented for further evaluation and management. As a result of her obesity, she developed hypertension, obstructive sleep apnea , including end-stage osteoarthritis of the knees. At a height of 5 foot 7 1/4 inches, her ideal body weight is 158 pounds. Previous weight 278 pounds. Current weight of 260 pounds. She is 102 pounds overweight. Body mass index has increased from 43.3 to 40.6. She had a revision from a band to gastric bypass. This morning, no reports of nausea or vomiting. Her pain was well controlled. Discharge instructions were reviewed. Procedures: Robotic assisted gastric bypass. Robotic lysis of adhesions over 2.5 hrs. Intraoperative EGD Patient Condition at Discharge: Stable Plan - Discharge Summary Discharge Rx Participant: Yes New Discharge Prescriptions: New HYDROcodone/APAP [[place] Elixir 7.5-325Mg/15Ml] 15 ml PO Q6HR PRN #400 solution PRN Reason: Severe Pain Changed Pantoprazole Sodium [Protonix] 40 mg PO DAILY #0 Discontinued Citalopram Hydrobromide [Citalopram HBr] 40 mg PO DAILY Ranitidine HCl [Zantac] 300 mg PO HS #30 tab Melatonin 5 mg PO HS Meloxicam [Mobic] 15 mg PO DAILY Discharge Medication List HYDROcodone/APAP [[place] Elixir 7.5-325Mg/15Ml] 15 ml PO Q6HR PRN #400 solution 03/27/17 [Rx] Pantoprazole Sodium [Protonix] 40 mg PO DAILY #0 03/27/17 [Rx] Discharge Disposition: HOME SELF-CARE
--- NOTE | 2017-05-02 07:49 | P.OP ---
Date of Procedure: 03/26/17 Description of Procedure: SURGEON: CALVIN AUGUSTIN MD COAL WEIGHER: 1. CASTRO HURTAOD 2. SCOTTIE BURK PREOPERATIVE DIAGNOSES: 1. Morbid obesity due to excess calories. 2. Body mass index of 43.3 to 41.2 3. Erosive esophagitis. 4. Diaphragmatic hiatal hernia. 5. Complications from adjustable gastric band. 6. Obstructive sleep apnea. 7. Hypertensive heart disease. 8. End-stage bilateral knee osteoarthritis. 9. Gastroesophageal reflux disease. 10. Vitamin D deficiency. POSTOPERATIVE DIAGNOSES: 1. Morbid obesity due to excess calories. 2. Body mass index of 43.3 to 41.2 3. Erosive esophagitis. 4. Diaphragmatic hiatal hernia. 5. Complications from adjustable gastric band. 6. Obstructive sleep apnea. 7. Hypertensive heart disease. 8. End-stage bilateral knee osteoarthritis. 9. Gastroesophageal reflux disease. 10. Vitamin D deficiency. 11. Severe perigastric adhesions from previous adjustable gastric band OPERATION: 1. Robotic da Fadia Xi assisted laparoscopic revision from adjustable gastric band to Roseanne-en-Y gastric bypass 65 cm biliopancreatic limb, 100cm antecolic antegastric Roseanne limb, with 25 mm EEA. 2. Robotic da Fadia Xi assisted laparoscopic lysis of adhesions over 2.5 hours. 3. Intraoperative esophagogastrojejunoscopy. ANESTHESIA: GENERAL WITH LOCAL. ESTIMATED BLOOD LOSS: 50 mL SPECIMENS REMOVED: None. COMPLICATIONS: NONE. Condition: stable Disposition: floor INDICATIONS: Natali Garcia is a 57-year-old female who presented to the [facility]ariatric [facility] April,. She has a personal history of adjustable gastric band and has developed complications from adjustable gastric band including severe esophageal reflux disease. As a result, she had her band removed. At a height of 5 foot 7 1/4 inches, her ideal body weight is 158 pounds. Today had weighed 264 down from 278 pounds. She has lost 14 pounds in the bariatric program. Body mass index has increased from 43.3 to 41.2. She has developed additional comorbidities including hypertension and sleep apnea. She presents for a gastric bypass. All surgical options for morbid obesity had been described using the [place] bariatric surgery collaborative comorbidity resolution including complication risk score. A second-generation bariatric consent form was described in detail including the possibility of protein malnutrition, leaks, gastrojejunal stricture, venous thrombosis, need for further surgery for which she demonstrated understanding. Benefits and risks of the procedure were described at length. Informed consent was obtained. DESCRIPTION: The patient was brought into the operating room theater. She was placed on a split leg table. Preoperatively she had received Lovenox subcutaneously for DVT prophylaxis. Additionally she had undergone Peridex oral solution as an oral decontaminant. After general induction, the abdomen was prepped and draped in standard sterile fashion. A Lerma catheter was placed. Ioban draping was placed along the abdomen. A robotic da Fadia Xi system was prepped and primed. The xiphoid to umbilicus was measured. At 15 cm from the xiphoid to just above the umbilicus, proposed port sites were marked with indelible marker along the anterior axillary line bilaterally, mid axillary line bilaterally with each ports were marked 10 cm from each other. The personal injury legal assistant port was marked along the left lateral abdominal wall. The robotic stapler port was marked for the right midclavicular line. A 5 mm 0 degrees laparoscopic trocar entry was performed along the left upper quadrant. The abdomen was insufflated to 15 mmHg pressure she tolerated well. Diagnostic laparoscopy demonstrated no injury to bowel, viscera, or mesentery. The liver surface was unremarkable. Moderate and extensive adhesions involving the upper pole of her stomach from her previous adjustable gastric band was identified adding complexity to her case. To accommodate and perform a robotic lysis of adhesions, the robotic ports were repositioned accordingly. One 8 mm robotic port and 12-mm robot stapler port was were placed along the right mid abdomen. The camera 8-mm port was temporary positioned along the right lateral abdominal wall. One 8 mm robotic port and 12-mm robot ports were placed along the left upper abdominal wall after exchanging the 5 mm port. Please note that the ports were placed at least 20 cm away from the target anatomy of the stomach. Care was taken to check each robotic arms were safely away from collision with the bed or the patient. At the xiphoid, a medium sized Slade liver retractor was placed under direct visualization with the Iron Employment Officer placed over the right shoulder of the patient. The additional third robotic arm was placed along the left aspect of the patient. The patient was repositioned in reverse Trendelenburg position after lowering the bed. The robot was docked over the patient. Using two graspers and vessel sealer, the robotic system was docked and primed as described. Instruments were interchanged by the personal injury legal assistant including scissors with electrocautery, needle explosives truck driver, and robotic stapler. I had sat at the console. The ligament of Treitz was identified and measured 60 cm antegrade and marked using 2-0 Vicryl and SH needle. The jejunum was divided at the 60 cm point above the suture measurement. The biliopancreatic limb was held in place by the third arm. The Roseanne limb was measured initially at 100 cm distally in an antegrade fashion to avoid tension along the proposed gastrojejunal anastomosis. At 100 cm along the anti-mesenteric border of the Roseanne limb, a jejunojejunostomy was proposed whereby enterotomies were created along the biliopancreatic limb including the Roseanne limb using a scissors with Bovie cautery. A stay suture of 2-0 Vicryl was placed to align and create the anastomosis. The enterotomies along the anti-mesenteric borders were created followed by unidirectional fire from the patient's right side using 2 - 45 mm white load Smart technology robotic stapler. The jejunojejunostomy was found to be hemostatic. The enterotomy was closed after horizontal mattress stitch of 2-0 Vicryl used to elevate the enterotomy followed by closure with the robotic stapler white load, at least 2. The robotic instruments were exchanged for a vessel sealer including atraumatic graspers. Extensive lysis of adhesions using a vessel sealer including scissors with cautery was performed over 2.5 hours to free the stomach from the liver including to address the perigastric adhesions from her previous adjustable gastric band. Attention was now brought to the creation of the gastrojejunostomy. Moderate omental adhesions was found about the upper pole stomach from her previous adjustable gastric band. Separately, she had extremely thickened cicatrix from a previous adjustable gastric band also adding complexity of the case. Meticulous dissection occurred well over 2.5 hrs to free the stomach. Along the lesser curvature of the stomach between the second and third veins, dissection was made along the retrogastric space to allow firing of the 45-mm green load. Dense posterior gastric adhesions were identified, hence increasing the complexity of her case. The anti-prolapse stitch was identified and divided from her prior adjustable gastric band. Additionally, the posterior stomach along the superior pole was adherent to the spleen and cautiously dissected free without any injury to the spleen. Initial stapler was fired perpendicular to the lesser curvature stomach was performed to start the gastric pouch. Additional manipulation and mobilization of the gastric pouch occured with a separate fires of the green and blue staple loads toward the angle of His in an attempt to divide the gastric pouch from the gastric remnant, thus preventing future gastric gastric fistula. Photographic imaging was obtained for completion of her gastric pouch. The patient was then prepared for placement of a Orvil. The patient was Mallampati 2. A 25-mm Orvil was selected for placement by the nurse nurse aide evaluator. The Orvil tubing was placed anterior to the staple line of the gastric pouch and brought out through the left inferior lateral port. The Orvil was then carefully and successfully navigated with the help of the nurse nurse aide evaluator into the gastric pouch. The sutures were identified and divided. The tubing was from the 25 mm anvil. Using aseptic technique all instruments including port sites were exchanged. As the Orvil had been placed, the blind jejunal limb was brought proximally into the upper abdomen. I re-scrubbed and temporarily undocked the robotic arms. No torsion was found upon the Roseanne limb. No tension was identified as the limb was brought along the upper abdomen. The blind jejunal limb was opened using a cordless cautery. The 25-mm EEA stapler was brought through the left anterior lateral port site from the left side. Please note that the trocars from the Orvil tubing, including the port, were removed to minimize contamination from the oral jose juan. The EEA stapler was brought through the open jejunal limb and its needle was deployed at the antimesenteric border where the anvil were mated for approximately 1 minute upon firing. The stapler was removed after irrigating the shaft of the instrument with warm normal saline. Donuts were found to be intact on both sides. The robotic arms were re-docked and I sat at the console. The open jejunal limb defect was closed using a 60 mm galindo load after releasing any tension from the blind jejunal limb. Hemostasis was checked with Sonicision along the blind jejunal limb mesentery. Care was taken to avoid any long blind limb to avoid candycane syndrome. No reinforcement sutures were placed along the gastrojejunal anastomosis. The mesenteric defects were obliterated by her intra-abdominal fat. I then went to the head of the bed to perform the esophagogastrojejunoscopy and a leak test. An Olympus gastroscope was passed along the posterior oropharynx which was unremarkable for any injury to the vocal cords. The scope was passed down to the proximal portion of the pouch, whereby no active bleeding was encountered. Good visualization of the gastrojejunostomy anastomosis, including the Roseanne limb was encountered with endoscopic image obtained. The anastomosis was found to be patent. The gastrointestinal tract was desufflated. No evidence of intraoperative leak was encountered as the gastric pouch and anastomosis were submerged under normal saline solution. I then went back to the bedside of the patient, whereby with coordinated effort of the personal injury legal assistant, irrigation was aspirated from the upper abdominal cavity. Tisseel was placed circumferentially over the anastomosis of the gastrojejunostomy. All instruments and pneumoperitoneum were evacuated from the abdominal cavity. The port correlating with the EEA stapler device was copiously irrigated with normal saline solution and hydrogen peroxide. The fascial defect was closed using 0 Vicryl and Ahmet Dee. The rest of incisions were reapproximated using 3-0 Vicryl for deep subcutaneous tissue and dermis followed by 4-0 Monocryl in a running subcuticular fashion. For local anesthetic was infiltrated along the skin for postop analgesia. Dermabond was applied to the skin. OptiFoam dressing was placed along the EEA stapler site. At the end of the procedure, needle, sponge and instrument count had been verified correct by the rehab technician. She had tolerated the procedure well and was extubated and taken to the postanesthesia unit in stable condition. Operative Findings: 1. Thoracic length 16.5 cm. 2. Severe perigastric adhesions from her previous adjustable gastric band causing moderate distortion of the upper pole stomach and additional 2.5 hours of lysis of adhesions. 3. Severe adhesions also limiting view and repair of hiatal hernia. 4. Bypass performed using 100 cm roseanne limb. 5. Quevedo defect and jejunojejunostomy defect obliterated by moderate intra- abdominal fat. 6. Leak test negative with gastrojejunal anastomosis patent and completely hemostatic. 8. Robotic approach completed for jejunojejunostomy. 9. No reinforcement sutures needed. 10. Eliseo wound protector use for extraction of specimens.
== END 2017-03-27 15:00 | disposition home or self-care (01) | DRG 620 ==
LOC: 2ORWHC 05:54 → 3SUR 12:48
PROVIDERS: ADMIT Surgery Plastic and Reconstructive Surgery; ATTEND Surgery Plastic and Reconstructive Surgery
PROC: 0DNW4ZZ Release Peritoneum, Percutaneous Endoscopic Approach (ICD-10-PCS; 2017-03-26)
PROC: 8E0W4CZ Robotic Assisted Procedure of Trunk Region, Percutaneous Endoscopic Approach (ICD-10-PCS; 2017-03-26)
PROC: 0DJ08ZZ Inspection of Upper Intestinal Tract, Via Natural or Artificial Opening Endoscopic (ICD-10-PCS; 2017-03-26)
PROC: 0D164ZA Bypass Stomach to Jejunum, Percutaneous Endoscopic Approach (ICD-10-PCS; principal; 2017-03-26 07:30)
DX: E66.01 Morbid (severe) obesity due to excess calories (principal); K22.10 Ulcer of esophagus without bleeding; I11.9 Hypertensive heart disease without heart failure; E55.9 Vitamin D deficiency, unspecified; E78.5 Hyperlipidemia, unspecified; M17.12 Unilateral primary osteoarthritis, left knee; G47.33 Obstructive sleep apnea (adult) (pediatric); K21.0 Gastro-esophageal reflux disease with esophagitis; K44.9 Diaphragmatic hernia without obstruction or gangrene; K66.0 Peritoneal adhesions (postprocedural) (postinfection); I83.90 Asymptomatic varicose veins of unspecified lower extremity; F41.9 Anxiety disorder, unspecified; Z68.41 Body mass index [BMI] 40.0-44.9, adult; Z98.84 Bariatric surgery status; Z96.651 Presence of right artificial knee joint; Z79.1 Long term (current) use of non-steroidal anti-inflammatories (NSAID); Z79.899 Other long term (current) drug therapy; Z87.891 Personal history of nicotine dependence; Z85.820 Personal history of malignant melanoma of skin
CPT/HCPCS: 74240; 80051; 82310; 82565; 83735; 84100; 84520; 85025; 86850; 86900; 86901; 94640; 94760

== ENCOUNTER → 2017-03-30 | Outpatient (CLI) | payer BC ==
[2017-03-30 10:10] VITALS: BP 132/74; PULSE 94; TEMP 97.9; BMI 39.9
--- NOTE | 2017-05-13 15:14 | P.PN ---
Subjective Progress Note Date: 03/30/17 DATE OF SERVICE: 03/30/2017 CHIEF COMPLAINT: Status post gastric bypass HISTORY OF PRESENT ILLNESS: Natali Garcia is a 57-year-old female with previous history of adjustable gastric band with removal. She is now revision from a band to a Tyler-en-Y gastric bypass 03/26/2017. She denies any abdominal pain. No reports of nausea and vomiting. She is tolerating liquids. She is passing flatus. Otherwise no complaints. Since her previous visit 4 months ago, she has lost 22 pounds. No fevers or chills. No further reports of gastroesophageal reflux disease. At a height of 5 foot 7 1/4 inches, her ideal body weight is 158 pounds. Her highest weight was 278 pounds. Today she comes in 256 pounds. She is 98 pounds overweight. Body mass index has decreased from 43.3 to 39.9. Percent excess weight loss is 18% PHYSICAL EXAM: VITAL SIGNS: 5 feet 7-1/4, 256 pounds. Body mass index 39.9. Vital Signs Temp 97.9 F 03/30/17 10:05 Pulse 94 03/30/17 10:05 Resp BP 132/74 03/30/17 10:05 Pulse Ox GENERAL: Well-developed female in no acute distress. HEENT: No scleral icterus. Extraocular movements grossly intact. Moist buccal mucosa. NECK: Supple without lymphadenopathy. CHEST: Nonlabored respirations. Equal bilateral excursions. CARDIOVASCULAR: Regular rate and rhythm. ABDOMEN: Obese, soft, nontender, nondistended. Wounds clean dry and intact. No signs of infection or cellulitis. MUSCULOSKELETAL: No clubbing, cyanosis, or edema. NEURO: No focal or lateralizing signs. Cranial nerves II to XII grossly intact. PSYCH: Appropriate affect. Alert and oriented to person, place, and time. SKIN: Good skin turgor. Well perfused. ASSESSMENT: 1. Morbid obesity due to excess calories. 2. Body mass index of 43.3 to 39.9 3. Obstructive sleep apnea. 4. Hypertensive heart disease. 5. End-stage bilateral knee osteoarthritis. 6. Gastroesophageal reflux disease. 7. Status post gastric bypass. PLAN: 1. Recommend follow-up in 2 weeks. 2. Start protein shakes. 3. No lifting over 4 pounds in 4 weeks. Objective - Vital Signs Vital signs: Vital Signs Temp 97.9 F 03/30/17 10:05 Pulse 94 03/30/17 10:05 Resp BP 132/74 03/30/17 10:05 Pulse Ox Intake & Output 03/29/17 03/30/17 03/30/17 18:59 06:59 18:59 Weight 116.483 kg
== END | disposition home or self-care (01) ==
LOC: BARWHC3 09:51
PROVIDERS: ATTEND Surgery Plastic and Reconstructive Surgery
DX: Z09 Encounter for follow-up examination after completed treatment for conditions other than malignant neoplasm (principal); E66.01 Morbid (severe) obesity due to excess calories; G47.33 Obstructive sleep apnea (adult) (pediatric); I11.9 Hypertensive heart disease without heart failure; M17.0 Bilateral primary osteoarthritis of knee; K21.9 Gastro-esophageal reflux disease without esophagitis; Z98.84 Bariatric surgery status; Z68.39 Body mass index [BMI] 39.0-39.9, adult
CPT/HCPCS: 97803; 99211

== ENCOUNTER → 2017-04-11 | Outpatient (CLI) | payer BC ==
[2017-04-11 15:04] VITALS: BP 111/65; PULSE 68; TEMP 97.8; BMI 39.4
--- NOTE | 2017-05-13 15:19 | P.PN ---
Subjective Progress Note Date: 04/11/17 DATE OF SERVICE: 04/11/2017 CHIEF COMPLAINT: Status post gastric bypass HISTORY OF PRESENT ILLNESS: Natali Garcia is a 57-year-old female with previous history of adjustable gastric band with removal. She is now revision from a band to a Tyler-en-Y gastric bypass 03/26/2017. She reports intermittent left-sided pain. She reports moderate improvement of the gastroesophageal reflux disease. Otherwise no complaints. She is tolerating liquids. No fevers or chills. Since her previous visit 2 weeks ago, she has lost 3 pounds. At a height of 5 foot 7 1/4 inches, her ideal body weight is 158 pounds. Her highest weight was 278 pounds. Today she comes in 253 pounds. She is 95 pounds overweight. Body mass index has decreased from 43.3 to 39.4. Percent excess weight loss is 21% PHYSICAL EXAM: VITAL SIGNS: 5 feet 7-1/4, 253 pounds. Body mass index 39.4 Vital Signs Temp 97.8 F 04/11/17 14:59 Pulse 68 04/11/17 14:59 Resp BP 111/65 04/11/17 14:59 Pulse Ox GENERAL: Well-developed female in no acute distress. HEENT: No scleral icterus. Extraocular movements grossly intact. Moist buccal mucosa. NECK: Supple without lymphadenopathy. CHEST: Nonlabored respirations. Equal bilateral excursions. CARDIOVASCULAR: Regular rate and rhythm. ABDOMEN: Obese, soft, nontender, nondistended. Wounds granulated. No signs of infection or cellulitis. MUSCULOSKELETAL: No clubbing, cyanosis, or edema. NEURO: No focal or lateralizing signs. Cranial nerves II to XII grossly intact. PSYCH: Appropriate affect. Alert and oriented to person, place, and time. SKIN: Good skin turgor. Well perfused. ASSESSMENT: 1. Morbid obesity due to excess calories. 2. Body mass index of 43.3 to 39.4 3. Obstructive sleep apnea. 4. Hypertensive heart disease. 5. End-stage bilateral knee osteoarthritis. 6. Gastroesophageal reflux disease. 7. Status post gastric bypass revision from gastric band. PLAN: 1. Continue Protonix for pouch care. 2. She was asked to avoid all NSAIDs for pouch care. 3. She poses risk for developing stricture as she is revision from a band to a gastric bypass. 4. Follow-up 1 month post-procedure. Objective - Vital Signs Vital signs: Vital Signs Temp 97.8 F 04/11/17 14:59 Pulse 68 04/11/17 14:59 Resp BP 111/65 04/11/17 14:59 Pulse Ox Intake & Output 04/10/17 04/11/17 04/11/17 18:59 06:59 18:59 Weight 114.895 kg
== END | disposition home or self-care (01) ==
LOC: BARWHC3 13:52
PROVIDERS: ATTEND Surgery Plastic and Reconstructive Surgery
DX: E66.01 Morbid (severe) obesity due to excess calories (principal); G47.33 Obstructive sleep apnea (adult) (pediatric); I11.9 Hypertensive heart disease without heart failure; M17.0 Bilateral primary osteoarthritis of knee; K21.9 Gastro-esophageal reflux disease without esophagitis; Z98.84 Bariatric surgery status; Z68.39 Body mass index [BMI] 39.0-39.9, adult
CPT/HCPCS: 99211

== ENCOUNTER → 2017-04-13 | Outpatient (CLI) | payer BC ==
[2017-04-13 13:50] LABS: HCT 40.8 % (34.0-46.0); HGB 12.9 gm/dL (11.4-16.0); MCH 27.7 pg (25.0-35.0); MCHC 31.6 g/dL (31.0-37.0); MCV 87.7 fL (80.0-100.0); Mean Platelet Volume 7.5; Platelet Count 324 k/uL (150-450); RBC 4.65 m/uL (3.80-5.40); RDW 15.6 % (11.5-15.5); WBC 10.1 k/uL (3.8-10.6)
[2017-04-13 13:57] LABS: ALT 42 U/L (9-52); AST 33 U/L (14-36); Albumin 4.3 g/dL (3.5-5.0); Alkaline Phosphatase 108 U/L (38-126); Anion Gap 9 mmol/L; Blood Urea Nitrogen 19 mg/dL (7-17); Calcium 10.3 mg/dL (8.4-10.2); Carbon Dioxide 28 mmol/L (22-30); Chloride 105 mmol/L (98-107); Glucose 111 mg/dL (74-99); Potassium 4.5 mmol/L (3.5-5.1); Sodium 142 mmol/L (137-145); Total Bilirubin 0.5 mg/dL (0.2-1.3)
[2017-04-13 14:09] LABS: INR 1.2 (<1.2); Prothrombin Time 11.1 sec (9.0-12.0)
[2017-04-13 16:09] LABS: Amorphous Sediment,Urine Occasional /hpf; Appearance,Urine Cloudy (Clear); Bacteria,Urine Few /hpf; Bilirubin,Urine Negative (Negative); Blood,Urine Trace (Negative); Calcium Oxalate Crystals,Urine Many /hpf; Color,Urine Yellow; Glucose,Urine (UA) Negative (Negative); Hyaline Casts,Urine 3 /lpf (0-2); Ketones,Urine Negative (Negative); Leukocyte Esterase,Urine Large (Negative); Mucus,Urine Few /hpf; Nitrite,Urine Negative (Negative); Protein,Urine Negative (Negative); RBC,Urine 4 /hpf (0-5); Specific Gravity,Urine 1.017 (1.001-1.035); Squamous Epithelial Cell,Urine 16 /hpf (0-4); Urobilinogen,Urine <2.0 mg/dL (<2.0); WBC,Urine 10 /hpf (0-5)
== END | disposition home or self-care (01) ==
LOC: LABPAT 13:14
PROVIDERS: ATTEND Orthopaedic Surgery
DX: Z01.812 Encounter for preprocedural laboratory examination (principal); Z01.818 Encounter for other preprocedural examination
CPT/HCPCS: 36415; 80053; 81001; 85027; 85610; 85730; 87070

== ENCOUNTER → 2017-04-25 | Outpatient (CLI) | payer BC ==
[2017-04-25 14:00] LABS: HCT 42.7 % (34.0-46.0); HGB 13.4 gm/dL (11.4-16.0); MCH 27.6 pg (25.0-35.0); MCHC 31.5 g/dL (31.0-37.0); MCV 87.7 fL (80.0-100.0); Mean Platelet Volume 7.2; Platelet Count 247 k/uL (150-450); RBC 4.87 m/uL (3.80-5.40); RDW 15.1 % (11.5-15.5); WBC 9.7 k/uL (3.8-10.6)
[2017-04-25 14:10] LABS: INR 1.1 (<1.2); Partial Thromboplastin Time 24.3 sec (22.0-30.0); Prothrombin Time 10.3 sec (9.0-12.0)
[2017-04-25 14:26] LABS: ALT 43 U/L (9-52); AST 28 U/L (14-36); Albumin 4.3 g/dL (3.5-5.0); Alkaline Phosphatase 126 U/L (38-126); Anion Gap 13 mmol/L; Blood Urea Nitrogen 21 mg/dL (7-17); Calcium 10.2 mg/dL (8.4-10.2); Carbon Dioxide 22 mmol/L (22-30); Chloride 107 mmol/L (98-107); Cholesterol 156 mg/dL (<200); Glucose 119 mg/dL (74-99); HDL Cholesterol 55 mg/dL (40-60); LDL Cholesterol,Calculated 83 mg/dL (0-99); Phosphorus 3.6 mg/dL (2.5-4.5); Potassium 4.3 mmol/L (3.5-5.1); Sodium 142 mmol/L (137-145); Total Bilirubin 0.7 mg/dL (0.2-1.3); Triglycerides 91 mg/dL (<150)
[2017-04-25 19:34] LABS: Iron Saturation 21.29 (12.00-45.00)
[2017-04-25 19:42] LABS: Vitamin D 25 Hydroxy 21.7 ng/mL (30.0-100.0)
[2017-04-25 20:12] LABS: Hepatitis C IgG Antibody Non-Reactive (Non-Reactive)
[2017-04-25 20:25] LABS: Hemoglobin A1C 5.8 % (4.0-6.0)
[2017-04-25 21:18] LABS: Parathyroid Hormone Intact 150.7 pg/mL (14.0-72.0)
[2017-04-26 12:21] LABS: Zinc, Serum 71 ug/dL (60-130)
[2017-04-26 13:14] LABS: Vitamin A 34 ug/dL (38-106)
[2017-04-26 14:50] LABS: Vitamin B1 51 ug/L (38-122)
[2017-05-01 18:36] LABS: Selenium 123 mcg/L (63-160)
== END | disposition home or self-care (01) ==
LOC: LABWHC1 13:34
PROVIDERS: ATTEND Surgery Plastic and Reconstructive Surgery
DX: E21.1 Secondary hyperparathyroidism, not elsewhere classified (principal); E89.1 Postprocedural hypoinsulinemia; E44.0 Moderate protein-calorie malnutrition; E55.9 Vitamin D deficiency, unspecified; K74.1 Hepatic sclerosis; N19 Unspecified kidney failure; K50.90 Crohn's disease, unspecified, without complications; D50.9 Iron deficiency anemia, unspecified; E66.01 Morbid (severe) obesity due to excess calories; Z13.9 Encounter for screening, unspecified
CPT/HCPCS: 36415; 80053; 80061; 82306; 82525; 82607; 82728; 82746; 83036; 83540; 83550; 83735; 83970; 84100; 84134; 84255; 84425; 84443; 84590; 84630; 85027; 85610; 85730; 86803

== ENCOUNTER → 2017-05-02 | Outpatient (CLI) | payer BC ==
[2017-05-02 15:29] VITALS: BMI 37.8
[2017-05-02 15:40] VITALS: BP 115/56; PULSE 69; RESP 16; TEMP 97.1
--- NOTE | 2017-05-13 15:27 | P.PN ---
Subjective Progress Note Date: 05/02/17 DATE OF SERVICE: 05/02/2017 CHIEF COMPLAINT: Status post gastric bypass HISTORY OF PRESENT ILLNESS: Natali Garcia is a 57-year-old female with previous history of adjustable gastric band with removal. She is now revision from a band to a Tyler-en-Y gastric bypass 03/26/2017. She denies any abdominal pain. No reports of any tract infection. She reports worsening dysphagia to solid foods. Otherwise she is tolerating liquids. Since her previous visit 3 weeks ago, she has lost 10 pounds. At a height of 5 foot 7 1/4 inches, her ideal body weight is 158 pounds. Her highest weight was 278 pounds. Today she comes in 242 pounds. She is 84 pounds overweight. Body mass index has decreased from 43.3 to 37.8. Percent excess weight loss is 30% PHYSICAL EXAM: VITAL SIGNS: 5 feet 7-1/4, 242 pounds. Body mass index 37.8 Vital Signs Temp 97.1 F L 05/02/17 15:38 Pulse 69 05/02/17 15:38 Resp 16 05/02/17 15:38 BP 115/56 05/02/17 15:38 Pulse Ox GENERAL: Well-developed female in no acute distress. HEENT: No scleral icterus. Extraocular movements grossly intact. Moist buccal mucosa. NECK: Supple without lymphadenopathy. CHEST: Nonlabored respirations. Equal bilateral excursions. CARDIOVASCULAR: Regular rate and rhythm. ABDOMEN: All incisions are granulated. No incisional hernias the bariatric site. Soft nontender nondistended. MUSCULOSKELETAL: No clubbing, cyanosis, or edema. NEURO: No focal or lateralizing signs. Cranial nerves II to XII grossly intact. PSYCH: Appropriate affect. Alert and oriented to person, place, and time. SKIN: Good skin turgor. Well perfused. Laboratory Last Values WBC 9.7 k/uL (3.8-10.6) 04/25/17 13:37 RBC 4.87 m/uL (3.80-5.40) 04/25/17 13:37 Hgb 13.4 gm/dL (11.4-16.0) 04/25/17 13:37 Hct 42.7 % (34.0-46.0) 04/25/17 13:37 MCV 87.7 fL (80.0-100.0) 04/25/17 13:37 MCH 27.6 pg (25.0-35.0) 04/25/17 13:37 MCHC 31.5 g/dL (31.0-37.0) 04/25/17 13:37 RDW 15.1 % (11.5-15.5) 04/25/17 13:37 Plt Count 247 k/uL (150-450) 04/25/17 13:37 PT 10.3 sec (9.0-12.0) 04/25/17 13:37 INR 1.1 (<1.2) 04/25/17 13:37 APTT 24.3 sec (22.0-30.0) 04/25/17 13:37 Sodium 142 mmol/L (137-145) 04/25/17 13:37 Potassium 4.3 mmol/L (3.5-5.1) 04/25/17 13:37 Chloride 107 mmol/L (98-107) 04/25/17 13:37 Carbon Dioxide 22 mmol/L (22-30) 04/25/17 13:37 Anion Gap 13 mmol/L 04/25/17 13:37 BUN 21 mg/dL (7-17) H 04/25/17 13:37 Creatinine 0.96 mg/dL (0.52-1.04) 04/25/17 13:37 Est GFR (MDRD) Af Amer >60 (>60 ml/min/1.73 sqM) 04/25/17 13:37 Est GFR (MDRD) Non-Af 60 (>60 ml/min/1.73 sqM) 04/25/17 13:37 Glucose 119 mg/dL (74-99) H 04/25/17 13:[address] Glu mg/dL 120 04/25/17 13:37 Hemoglobin A1c 5.8 % (4.0-6.0) 04/25/17 13:37 Calcium 10.2 mg/dL (8.4-10.2) 04/25/17 13:37 Phosphorus 3.6 mg/dL (2.5-4.5) 04/25/17 13:37 Magnesium 2.0 mg/dL (1.6-2.3) 04/25/17 13:37 Iron 76 ug/dL (50-170) 04/25/17 13:37 TIBC 357 ug/dL (228-460) 04/25/17 13:37 Iron Saturation 21.29 (12.00-45.00) 04/25/17 13:37 Ferritin 22.9 ng/mL (10.0-291.0) 04/25/17 13:37 Total Bilirubin 0.7 mg/dL (0.2-1.3) 04/25/17 13:37 AST 28 U/L (14-36) 04/25/17 13:37 ALT 43 U/L (9-52) 04/25/17 13:37 Alkaline Phosphatase 126 U/L (38-126) 04/25/17 13:37 Total Protein 7.0 g/dL (6.3-8.2) 04/25/17 13:37 Albumin 4.3 g/dL (3.5-5.0) 04/25/17 13:37 Prealbumin 20.0 mg/dL (18.0-42.0) 04/25/17 13:37 Triglycerides 91 mg/dL (<150) 04/25/17 13:37 Cholesterol 156 mg/dL (<200) 04/25/17 13:37 LDL Cholesterol, Calc 83 mg/dL (0-99) 04/25/17 13:37 HDL Cholesterol 55 mg/dL (40-60) 04/25/17 13:37 Vitamin A 34 ug/dL (38-106) L 04/25/17 13:37 Vitamin B1 51 ug/L (38-122) 04/25/17 13:37 Vitamin B12 501.0 pg/mL (200.0-944.0) 04/25/17 13:37 Vitamin D 25-Hydroxy 21.7 ng/mL (30.0-100.0) L 04/25/17 13:37 Folate 5.0 ng/mL 04/25/17 13:37 TSH 0.676 mIU/L (0.465-4.680) 04/25/17 13:37 PTH Intact 150.7 pg/mL (14.0-72.0) H 04/25/17 13:37 Copper 987 ug/L (810-1990) 04/25/17 13:37 Selenium 123 mcg/L (63-160) 04/25/17 13:37 Zinc 71 ug/dL (60-130) 04/25/17 13:37 Hep C IgG Ab Non-Reactive (Non-Reactive) 04/25/17 13:37 Vitamin A is low. Vitamin D is low. PTH is elevated. Hemoglobin A1c 5.8%, prediabetic ASSESSMENT: 1. Morbid obesity due to excess calories. 2. Body mass index of 43.3 to 37.8 3. Obstructive sleep apnea. 4. Hypertensive heart disease. 5. End-stage bilateral knee osteoarthritis. 6. Gastroesophageal reflux disease. 7. Status post gastric bypass revision from gastric band. 8. Dysphagia to solid foods. PLAN: 1. Recommend start of multivitamin. 2. Vitamin A supplement 8-10,000 units daily advised 3. Vitamin D supplement 10,000 units daily or 50,000 units weekly 4. Calcium intake 1200 mg daily 5. Recommend protein diet at least 75 g daily with low-carb diet to addres prediabetes 6. Continue Protonix. 7. Recommend avoidance of NSAIDs. 8. Recommend upper endoscopy with balloon dilatation for potential gastric stricture. Objective - Vital Signs Vital signs: Vital Signs Temp 97.1 F L 05/02/17 15:38 Pulse 69 05/02/17 15:38 Resp 16 05/02/17 15:38 BP 115/56 05/02/17 15:38 Pulse Ox Intake & Output 05/01/17 05/02/17 05/02/17 18:59 06:59 18:59 Weight 110.223 kg
== END ==
LOC: BARWHC3 14:18
PROVIDERS: ATTEND Surgery Plastic and Reconstructive Surgery
DX: E66.01 Morbid (severe) obesity due to excess calories (principal); Z71.3 Dietary counseling and surveillance; Z68.37 Body mass index [BMI] 37.0-37.9, adult
CPT/HCPCS: 97803; 99211

== ENCOUNTER 2017-05-07 13:15 | Inpatient (IN) | payer BC ==
[2017-05-01 10:41] VITALS: BMI 37.4
[~2017-05-07 13:15] MED LIST changes: +ACETAMINOPHEN TAB 500 MG TAB PO ONE; +MIDAZOLAM 2 MG/2 ML VIAL IV PRN; +ROPIVACAINE 246.25 MG, EPINEPHrine 0.5 MG, KETOROLAC 30 MG, cloNIDine HCL/PF 80 MCG, WA... MISCELLANE ONE; +TRANEXAMIC ACID 1,000 MG in SODIUM CHLORIDE 0.9% 50 ML IVPB ONE
[2017-05-07] MEDS: LACTATED RINGERS 1,000 ML IV SCH (13:56)
[2017-05-07] MEDS ORDERED: LIDOCAINE 1% 20 ML VIAL (10MG/ML) FOR IV START INTRADERMA ONE (14:00)
[2017-05-07] MEDS: MELOXICAM 7.5 MG TAB PO ONE ×2 (14:13→17:55)
[2017-05-07] MEDS ORDERED: ROPIVACAINE 1,100 MG, SODIUM CHLORIDE 0.9% 330 ML MISCELLANE PRN ×2 (14:52)
--- NOTE | 2017-05-07 14:54 | P.ONQ ---
Anesthesiology Proc Note - PNB - Peripheral Nerve Block Performed Left Adductor Canal Infusion Time Out Performed: Yes (2012) Procedure Start Time: 14:06 Procedure Stop Time: 14:18 Indication: Acute Post-Operative Pain, Requested by physician Sedation Type: Sedate with meaningful contact maintained Preparation: Sterile Prep Position: Supine Catheter: Indwelling Needle Types: Esme Needle Size: 100mm (4") Needle Gauge: 20 Technique: Ultrasound Injectate: 0.5% Ropivacaine (see comment for volume) (30 mls Ropivacaine) Blood Aspirated: No Pain Paresthesia on Injection Noted: No Resistance on Injection: Normal Events: Uneventful and Well Tolerated
[2017-05-07] MEDS ORDERED: NA PHOS,M-B/NA PHOS,DI-BA 133 ML ENEMA RECTAL PRN (15:01)
[2017-05-07] MEDS ORDERED: HYDROcodone/APAP 5-325MG 1 EACH TAB PO PRN ×2 (15:01)
[2017-05-07] MEDS ORDERED: MORPHINE SULFATE 2 MG/ML SYRINGE IVP PRN (15:01)
[2017-05-07] MEDS ORDERED: DIAZEPAM 5 MG TAB PO PRN ×2 (15:01)
[2017-05-07] MEDS ORDERED: MORPHINE SULFATE 4 MG/ML SYRINGE IVP PRN ×2 (15:01→19:44)
[2017-05-07] MEDS ORDERED: ONDANSETRON 4 MG/2 ML VIAL IVP PRN (15:01)
[2017-05-07] MEDS ORDERED: NALOXONE 0.4 MG/ML 1 ML VIAL IV PRN (15:01)
[2017-05-07] MEDS ORDERED: MAGNESIUM HYDROXIDE 2,400 MG/10 ML CUP PO PRN (15:01)
[2017-05-07] MEDS ORDERED: BISACODYL 10 MG SUPP RECTAL PRN (15:01)
[2017-05-07] MEDS ORDERED: PROPOFOL 10 MG/ML 20 ML VIAL IV ONE (15:34)
[2017-05-07] MEDS ORDERED: TRANEXAMIC ACID 1,000 MG/10 ML VIAL ONE (15:34)
[2017-05-07] MEDS ORDERED: LIDOCAINE 1% INJ 10MG/ML (20 ML MDV) ONE (15:34)
[2017-05-07] MEDS ORDERED: SODIUM CHLORIDE 0.9% 100 ML BAG ONE (15:34)
[2017-05-07] MEDS ORDERED: fentaNYL (PF) 50 MCG/ML 2 ML AMP ONE (15:34)
[2017-05-07] MEDS ORDERED: MIDAZOLAM 2 MG/2 ML VIAL ONE (15:34)
--- NOTE | 2017-05-07 16:54 | P.OP ---
Date of Procedure: 05/07/17 Preoperative Diagnosis: Severe osteoarthritis left knee Postoperative Diagnosis: Severe osteoarthritis left knee Procedure(s) Performed: Left total knee arthroplasty Implants: Hernandez and Nephew Oxinium femoral component size 6, left Hernandez & Nephew Silvana II left nonporous tibial baseplate size 5 Hernandez & Nephew size 11 mm Legion XLPE high flexion articular insert, size 5-6 Hernandez & Nephew Silvana II resurfacing patellar component, 32 mm All components were cemented using [place] bone cement.. The articulation is Oxinium on polyethylene. Anesthesia: spinal Surgeon: Les Mccurdy Auto Salvage Worker #1: Selena Viveros Estimated Blood Loss (ml): 50 Pathology: other (Bone and cartilage) Condition: stable Disposition: PACU Indications for Procedure: After failure of conservative treatment we discussed the surgical and nonsurgical treatment options at length. Patient wishes to proceed with a total knee arthroplasty. Complications specific to this procedure were discussed at length, including but not limited to infection, bleeding, stiffness , and nerve injury. Patient is aware of all these complications and informed consent was obtained Operative Findings: The operative findings are consistent with severe osteoarthritis the left knee Description of Procedure: Patient was seen in the preoperative area consent was reviewed and operative site was marked with a skin marker. An adductor canal pain catheter was placed by anesthesia in the preoperative area. Patient was then brought to the operating room and given preoperative antibiotics intravenously. A spinal anesthetic was administered by the anesthesia department. A tourniquet was placed on the upper thigh and the lower extremity was prepped and draped in usual sterile fashion. A gram of transexamic acid was given. A universal timeout was then performed which confirmed the patient's name, surgical site, ALLERGIES, and consent. The lower extremity was then exsanguinated and tourniquet was inflated to 250 mmHg. A standard and anterior midline approach to the knee was performed. The skin and subcutaneous tissue was dissected down to the patellar tendon. A medial parapatellar arthrotomy was then performed. The knee was then extended, the patellar was everted, and the knee was again flexed. Anterior horns of both menisci were excised, and a release was performed to the posterior medial aspect of the knee. On gross visual inspection, there was complete loss of articular cartilage in the medial and patellofemoral joint spaces. There was also significant cartilage damage in the lateral compartment. There were multiple periarticular osteophytes which were then removed with a Ronguer. The femoral canal was then opened with the appropriate drill, and the intramedullary femoral cutting guide was then placed and set for 4 of valgus. The distal femoral cutting block was then pinned in place, and the distal femur was then cut. The cutting block was then removed and the cut was checked for flatness. Next, the sizing guide was then placed and set for 3 external rotation based off of the epicondylar axis and Whitesides line. After the femur was sized, the appropriate 4-in-1 cutting block was then pinned in place. The anterior condyles were cut without notching. The posterior and chamfer cuts were performed while protecting the collateral ligaments. The cutting block was then removed, and the femoral canal was plugged with autologous bone. Attention was then directed to the tibia. The remaining ACL was removed with a Ronguer, and the tibia was then gently subluxed forward with a large bent knee retractor. Any remaining menisci was excised. The posterior lateral corner was cauterized in order to cauterize the lateral geniculate artery. The extra medullary tibial cutting guide was then placed, set for the appropriate rotation , slope, and depth of resection. The proximal tibia cutting guide was then pinned in place. Proximal tibia was then cut and sized. Next trials were then placed with the appropriate-sized insert. The knee was able to fully extend and flex to 130 and was stable throughout all range of motion. The knee was then extended, patella everted. Patella was then measured, and then using an osteotomy guide, the patella was cut at the appropriate level. The patella was then measured and drilled and the patella trial was then placed. The knee was then taken through range of motion with the patella trial and the patella tracked normally. The knee was then extended patella trial was then removed and the patella was everted. Knee was then flexed and lug holes were drilled through the femoral trial and the femoral trial was then removed. The tibial was then exposed, and the tibial broach guide was then pinned in place after it was set for the appropriate rotation to allow for the most coverage without overhang. The tibia was then reamed and broached. The cut surfaces of bone were then irrigated with pulsatile lavage. The posterior structures were injected with the ropivacaine solution. The knee was also irrigated with Irrisept solution. The components were then opened, the cement was mixed, and the components were then cemented in place. The cement was allowed to harden with the knee in full extension. While the cement was hardening, the remaining soft tissues were then injected with a ropivacaine solution, which consisted of 246.25 mg of ropivacaine, 0.5 mg of epinephrine, 30 mg of Toradol, 80 g of clonidine, and 48.45 mL of sterile water, for a total of 100 mL of fluid injected. After the cemented hardened. The tourniquet was released, and hemostasis was obtained. A second gram of transexamic acid was given. The knee was again irrigated. The knee was again taken through range of motion and found to be stable throughout all range of motion of 0-130 , and the patella tracked normally. The fascia was then closed with #2 strata fix suture. The subcutaneous tissue was closed with 3-0 Vicryl and 3-0 strata fix. Dermabond glue was used for the skin and placed with the knee in flexion. The patient was placed in a sterile silver dressing. Patient was then transferred to recovery room in stable condition. The administrative sales assistant DENNY Juarez was required due the complexity surgery and the need for a skilled laboratory chemical assistant. She assisted in positioning, draping, retraction, and closure of the wound.
--- NOTE | 2017-05-07 17:44 | XR ---
EXAMINATION TYPE: XR knee limited LT DATE OF EXAM: 05/07/2017 COMPARISON: NONE HISTORY: Postop knee surgery TECHNIQUE: 2 views FINDINGS: There is a left knee prosthesis. Components appear in anatomic position. IMPRESSION: No complicating process seen.
[2017-05-07] MEDS ORDERED: HYDROcodone/APAP 15 ML SOLUTION PO PRN (19:42)
[2017-05-07] MEDS: HYDROcodone/APAP 15 ML SOLUTION PO PRN (20:37)
[2017-05-07] MEDS: ceFAZolin IN SWFI 2 GM/20 ML SYRINGE IVP SCH (22:44)
[2017-05-07] MEDS: SENNOSIDES-DOCUSATE SODIUM 1 EACH TAB PO SCH (22:44)
[2017-05-07] MEDS: MELATONIN 5 MG TABLET PO SCH (22:45)
[2017-05-08] MEDS: SODIUM CHLORIDE 0.9% 1,000 ML IV SCH ×2 (00:14→07:52)
--- NOTE | 2017-05-08 01:03 | CONS ---
CONSULTATION REASON FOR CONSULTATION: May 07, 2017. REASON FOR CONSULTATION: Medical management requested by Dr. Mccurdy. CONSULTATION: This is a pleasant 57 -year-old patient of Dr. Mabry. The patient has undergone left total knee arthroplasty. Post procedure, rather comfortable. No nausea, vomiting. Denies any cardiac history. No chest pain or shortness of breath. The patient did undergo a gastric Tyler-en-Y bypass surgery on March [address] Seals. The patient is on a modified soft diet. The patient's chronic stable medical conditions include GERD, obstructive sleep apnea, for which she uses CPAP machine, depression for which she is on Celexa. Currently sitting on bed comfortable. REVIEW OF SYSTEMS: CONSTITUTIONAL: None. HEENT none. Respiratory none. Cardiovascular none. Gastrointestinal heartburn. Genitourinary none. Musculoskeletal as above. Dermatological, hematologic, lymphatic none. Psychiatry: Depression controlled. Neurological none. PAST MEDICAL HISTORY: GERD, obstructive sleep apnea, depression, varicose veins. PAST SURGICAL HISTORY: Gastric Tyler-en-Y by surgery recently with a previous lap band, , cholecystectomy, right knee replacement, melanoma removed from the right forehead. SOCIAL HISTORY: Smoked for smoked up to 2 packs a day for 13 years. Stopped in 1989. . FAMILY HISTORY: Of lymphoma, kidney cancer. HOME MEDICATIONS: 1. Protonix 40 mg a day. 2. Multivitamin 1 tab p.o. daily. 3. Melatonin 10 mg q.h.s.. 4. Celexa 40 mg p.o. daily. 5. Calcium 250 mg p.o. daily. ALLERGIES: None. PHYSICAL EXAMINATION: Temperature 98.8, pulse 75, respiration 16, blood pressure 112/60 pulse ox 94% on room appearance: Well built, BMI 37.4 sitting up comfortable. Eyes: Pupil equal. HEENT external nausea normal. Oral cavity normal neck JVD not raised. Mass to palpable. Respiratory effort lungs are clear cardiovascular. 1st and 2nd sounds no edema. ABDOMEN: Soft, nontender. Liver and spleen not palpable. Lymphatics: No lymph nodes palpable. PSYCHIATRY: Alert and oriented x3. Mood and affect normal. Neurological pupils equal. Cranial nerves grossly intact. Power and sensation grossly intact. Extremities left knee in a dressing. INVESTIGATIONS: Blood work from April 25 shows a white count 9.7, hemoglobin 13.4 potassium 4.3, ASSESSMENT: 1. Left total knee arthroplasty. 2. Primary osteoarthritis. 3. Gastroesophageal reflux disease. 4. Obstructive sleep apnea uses CPAP machine. 5. Depression, not otherwise specified, stable on Celexa. 6. Gastric Tyler-en-Y bypass surgery on March 26. The patient has a bypass soft diet. 7. Obesity; BMI 37.4. PLAN: Patient's home medications will be continued. Keep in mind patient's bariatric diet to be continued and a pill size to keep in mind care. This was discussed with the patient. MMODL / IJN: [id number] /
[2017-05-08] MEDS: ceFAZolin IN SWFI 2 GM/20 ML SYRINGE IVP SCH (06:04)
[2017-05-08 07:04] LABS: Basophils % (A) 0 %; Eosinophils # (A) 0.1 k/uL (0-0.7); Eosinophils % (A) 1 %; HCT 40.2 % (34.0-46.0); HGB 12.1 gm/dL (11.4-16.0); Lymphocytes # (A) 1.5 k/uL (1.0-4.8); Lymphocytes % (A) 12 %; MCH 26.4 pg (25.0-35.0); MCHC 30.2 g/dL (31.0-37.0); MCV 87.5 fL (80.0-100.0); Mean Platelet Volume 7.5; Monocytes # (A) 0.5 k/uL (0-1.0); Monocytes % (A) 4 %; Neutrophils # (A) 10.7 k/uL (1.3-7.7); Neutrophils % (A) 83 %; Platelet Count 274 k/uL (150-450); RBC 4.59 m/uL (3.80-5.40); RDW 14.8 % (11.5-15.5); WBC 12.9 k/uL (3.8-10.6)
[2017-05-08] MEDS: LACTATED RINGERS 1,000 ML IV SCH (07:47)
[2017-05-08] MEDS: PANTOPRAZOLE 40 MG TABLET PO SCH (07:51)
[2017-05-08] MEDS: RIVAROXABAN 10 MG TAB PO SCH (08:20)
[2017-05-08] MEDS: CITALOPRAM HYDROBROMIDE 20 MG TAB PO SCH (08:21)
--- NOTE | 2017-05-08 08:48 | P.PN ---
Progress Note - Text Progress Note Date: 05/08/17 Status post left total knee replacement. Patient received the adductor canal catheter. Ropivacaine 0.2% at 8 mls/hr. Patient was seen today at 7:15 AM. Patient was sitting in bed comfortably. VAS score of 0/10 no complains overnight. Assessment and plan: patient will be sent home with the adductor canal pump. Adequate pain control.
--- NOTE | 2017-05-08 11:16 | P.DS ---
Providers Date of admission: 05/07/17 13:15 Expected date of discharge: 05/08/17 Attending physician: Les Mccurdy Consults: 05/07/17 15:01 Consult Physician Routine Consulting Provider: Nabeel Stephenson Consult Reason/Comments: medical management and anticoagulation Do you want consulting provider notified?: Yes Primary care physician: Archie Mabry - Discharge Diagnosis(es) (1) Primary osteoarthritis of left knee Current Visit: Yes Status: Acute (2) S/P total knee arthroplasty Current Visit: Yes Status: Acute Hospital Course: This is a 57-year-old female with known history of degenerative arthritis of the left knee. The patient presents for evaluation. After discussion and consideration patient elects to proceed with total knee arthroplasty. The patient is seen preoperatively by Dr. Mccurdy and cleared for surgery. Patient is admitted to [facility] on 05/07/2017 for total knee arthroplasty. The procedures performed without complication or sequelae. The patient is doing well postoperatively. Labs and vital signs are stable on day of discharge. On day of discharge patient's knee incision is healing well. There is minimal erythema. There is no drainage noted at this time. There is minimal soft tissue swelling to the knee. Patient has full foot and ankle motion without difficulty or pain. Neurovascular status to the left lower extremity is intact. Patient is discharged home in good condition. Please see med rec for accurate list of home medications. Plan - Discharge Summary Discharge Rx Participant: Yes New Discharge Prescriptions: New Rivaroxaban [Xarelto] 10 mg PO DAILY #30 tab HYDROcodone/APAP [[place] Elixir 7.5-325Mg/15Ml] 10 - 20 ml PO Q6HR PRN 30 Days #2400 ml PRN Reason: Pain Sennosides [Senokot] 1 tab PO BID #60 tablet No Action Pantoprazole Sodium [Protonix] 40 mg PO DAILY #0 Melatonin 10 mg PO HS Multivitamins, Thera [Multivitamin (formulary)] 1 tab PO DAILY Calcium Citrate 250 mg PO DAILY Citalopram Hydrobromide [Citalopram HBr] 40 mg PO DAILY Discharge Medication List Pantoprazole Sodium [Protonix] 40 mg PO DAILY #0 03/27/17 [Rx] Melatonin 10 mg PO HS 05/01/17 [History] Calcium Citrate 250 mg PO DAILY 05/04/17 [History] Multivitamins, Thera [Multivitamin (formulary)] 1 tab PO DAILY 05/04/17 [History ] Citalopram Hydrobromide [Citalopram HBr] 40 mg PO DAILY 05/07/17 [History] HYDROcodone/APAP [[place] Elixir 7.5-325Mg/15Ml] 10 - 20 ml PO Q6HR PRN 30 Days # 2400 ml 05/08/17 [Rx] Rivaroxaban [Xarelto] 10 mg PO DAILY #30 tab 05/08/17 [Rx] Sennosides [Senokot] 1 tab PO BID #60 tablet 05/08/17 [Rx] Follow up Appointment(s)/Referral(s): [facility], [NON-STAFF] - Les Mccurdy DO [Doctor of Osteopathic Medicine] - 2 Weeks Ambulatory/Diagnostic Orders: Continuous Passive Motion (CPM) Machine [DME.AMB1] Time Frame: 3 Weeks, Location : Determined By Patient Activity/Diet/Wound Care/Special Instructions: Weightbearing as tolerated with a walker CPM 5-6h daily Leave dressing intact. May be removed by home care nurse in 10 days, 05/18/2017. May shower with dressing on. [facility] with questions or concerns [phone] Discharge Disposition: HOME WITH HOME HEALTH SERVICES
[2017-05-08] MEDS: MULTIVITAMINS, THERA 1 EACH TAB PO SCH (11:34)
[2017-05-08] MEDS: HYDROcodone/APAP 15 ML SOLUTION PO PRN ×3 (11:37→22:17)
[2017-05-08] MEDS: MELATONIN 5 MG TABLET PO SCH (21:05)
[2017-05-08] MEDS: SENNOSIDES-DOCUSATE SODIUM 1 EACH TAB PO SCH (21:05)
--- NOTE | 2017-05-08 21:20 | PN ---
PROGRESS NOTE DATE OF SERVICE: 05/08/2017 PRESENTING COMPLAINT: Left knee surgery. INTERVAL HISTORY: Patient is status post left knee surgery; doing well, comfortable. No chest pain or short of breath. Did tolerate a diet. REVIEW OF SYSTEMS: Done for constitutional, cardiovascular, GI, pulmonary; relevant findings as above. Current medications are reviewed. EXAMINATION: Temperature 97.1, pulse 57, respirations 16, blood pressure 106/61, pulse ox 93% on room air. GENERAL APPEARANCE: Sitting up, comfortable. EYES: Pupils equal. Conjunctivae normal. HEENT: External appearance of nose and ears normal. Oral cavity normal. NECK: JVD not raised. Mass not palpable. RESPIRATORY: Effort normal. Lungs are clear. CARDIOVASCULAR: First and second sounds normal. No edema. ABDOMEN: Soft, nontender. Liver and spleen not palpable. PSYCHIATRIC: Alert and oriented x3. Mood and affect normal. EXTREMITIES: Left knee in a dressing. INVESTIGATIONS: White count 12.9, hemoglobin 12.1. ASSESSMENT: 1. Left total knee arthroplasty. 2. Primary osteoarthritis. 3. Gastroesophageal reflux disease. 4. Obstructive sleep apnea, uses a CPAP machine. 5. Depression, not otherwise specified. 6. Gastric Tyler-en-Y bypass surgery March 26, 2017. 7. Obesity; BMI 37.4. Patient stable, doing well comfortable. Continue current medication and treatment plan. Thank you. LEIDY / BRO: [id number] /
[2017-05-09] MEDS: HYDROcodone/APAP 15 ML SOLUTION PO PRN ×3 (03:21→17:48)
[2017-05-09] MEDS: MORPHINE SULFATE 4 MG/ML SYRINGE IVP PRN ×3 (07:47→19:54)
[2017-05-09] MEDS: SODIUM CHLORIDE 0.9% 1,000 ML IV SCH ×2 (08:38→08:45)
[2017-05-09] MEDS: RIVAROXABAN 10 MG TAB PO SCH (08:42)
[2017-05-09] MEDS: LACTATED RINGERS 1,000 ML IV SCH (08:43)
[2017-05-09] MEDS: PANTOPRAZOLE 40 MG TABLET PO SCH (08:43)
[2017-05-09] MEDS: CITALOPRAM HYDROBROMIDE 20 MG TAB PO SCH (08:43)
[2017-05-09] MEDS: MULTIVITAMINS, THERA 1 EACH TAB PO SCH (08:43)
[2017-05-09] MEDS ORDERED: HYDROcodone/APAP 15 ML SOLUTION PO PRN (09:07)
[2017-05-09] MEDS: hydrOXYzine PAMOATE 25 MG CAP PO PRN ×2 (09:41→17:48)
--- NOTE | 2017-05-09 19:42 | PN ---
PROGRESS NOTE DATE OF SERVICE: 05/09/2017 PRESENTING COMPLAINT: Left knee surgery. INTERVAL HISTORY: Patient is status post left knee surgery. Tolerating a diet. Did get up for physical therapy. Overall doing better. No new issues. REVIEW OF SYSTEMS: Done for constitutional, cardiovascular, GI, pulmonary, musculoskeletal; relevant findings as above. CURRENT MEDICATIONS: Reviewed. PHYSICAL EXAMINATION: Temperature 98.4, pulse 68, respiration 16, blood pressure 143/66, pulse ox 99% on room air. GENERAL APPEARANCE: Sitting up. Comfortable. EYES: Pupils equal. Conjunctivae normal. HEENT: External appearance of nose and ears normal. Oral cavity normal. NECK: JVD not raised. Mass not palpable. RESPIRATORY: Effort normal. Lungs are clear. CARDIOVASCULAR: First and second sounds normal. No edema. ABDOMEN: Soft, nontender. Liver and spleen not palpable. PSYCHIATRY: Alert and oriented x3. Mood and affect normal. INVESTIGATION: No blood work from today. ASSESSMENT: 1. Left total knee arthroplasty. 2. Primary osteoarthritis. 3. Gastroesophageal reflux disease. 4. Obstructive sleep apnea; uses CPAP machine. 5. Depression not otherwise specified. 6. Gastric Tyler-en-Y bypass surgery in March 2017. 7. Obesity with body mass index of 37.4. PLAN: Continue current medication and treatment plan. Patient's pain is better controlled. Will follow. MMODL / IJN: [id number] /
[2017-05-09] MEDS: MELATONIN 5 MG TABLET PO SCH (20:04)
[2017-05-09] MEDS: SENNOSIDES-DOCUSATE SODIUM 1 EACH TAB PO SCH (20:04)
[2017-05-10 02:28] VITALS: TEMP 98.6
[2017-05-10] MEDS: hydrOXYzine PAMOATE 25 MG CAP PO PRN (02:51)
[2017-05-10] MEDS: HYDROcodone/APAP 15 ML SOLUTION PO PRN ×2 (02:51→08:40)
[2017-05-10] MEDS: SODIUM CHLORIDE 0.9% 1,000 ML IV SCH (06:39)
[2017-05-10] MEDS: LACTATED RINGERS 1,000 ML IV SCH (06:39)
[2017-05-10 06:47] LABS: Basophils % (A) 0 %; Eosinophils # (A) 0.2 k/uL (0-0.7); Eosinophils % (A) 2 %; HGB 11.7 gm/dL (11.4-16.0); Lymphocytes # (A) 2.3 k/uL (1.0-4.8); Lymphocytes % (A) 22 %; MCH 27.3 pg (25.0-35.0); MCHC 31.7 g/dL (31.0-37.0); MCV 86.2 fL (80.0-100.0); Mean Platelet Volume 7.1; Monocytes # (A) 0.5 k/uL (0-1.0); Monocytes % (A) 5 %; Neutrophils # (A) 7.3 k/uL (1.3-7.7); Neutrophils % (A) 70 %; Platelet Count 250 k/uL (150-450); WBC 10.5 k/uL (3.8-10.6)
[2017-05-10 07:06] VITALS: BP 107/72; PULSE 83; RESP 14
[2017-05-10] MEDS: CITALOPRAM HYDROBROMIDE 20 MG TAB PO SCH (08:12)
[2017-05-10] MEDS: RIVAROXABAN 10 MG TAB PO SCH (08:13)
[2017-05-10] MEDS: PANTOPRAZOLE 40 MG TABLET PO SCH (08:13)
[2017-05-10] MEDS: MULTIVITAMINS, THERA 1 EACH TAB PO SCH (08:13)
--- NOTE | 2017-05-10 08:16 | P.DS ---
Providers Date of admission: 05/07/17 13:15 Expected date of discharge: 05/10/17 Attending physician: Les Mccurdy Consults: 05/07/17 15:01 Consult Physician Routine Consulting Provider: Nabeel Stephenson Consult Reason/Comments: medical management and anticoagulation Do you want consulting provider notified?: Yes Primary care physician: Archie Mabry - Discharge Diagnosis(es) (1) Primary osteoarthritis of left knee Current Visit: Yes Status: Acute (2) S/P total knee arthroplasty Current Visit: Yes Status: Acute Hospital Course: This is a 57-year-old female with known history of degenerative arthritis of the left knee. The patient presents for evaluation. After discussion and consideration patient elects to proceed with total knee arthroplasty. The patient is seen preoperatively by Dr. Mccurdy and medically cleared for surgery by their primary care physician. Patient is admitted to [facility] on 05/07/2017 for total knee arthroplasty. The procedures performed without complication or sequelae. The patient is doing well postoperatively. Patient states her pain is much better controlled and she is ready to go home. Labs and vital signs are stable on day of discharge. On day of discharge patient's knee incision is healing well. There is minimal erythema. There is no drainage noted at this time. There is minimal soft tissue swelling to the knee. Patient has full foot and ankle motion without difficulty or pain. Neurovascular status to the left lower extremity is intact. Patient is discharged home in good condition. Please see med rec for accurate list of home medications. Plan - Discharge Summary Discharge Rx Participant: Yes New Discharge Prescriptions: New Rivaroxaban [Xarelto] 10 mg PO DAILY #30 tab Sennosides [Senokot] 1 tab PO BID #60 tablet HYDROcodone/APAP [[place] Elixir 7.5-325Mg/15Ml] 15 - 30 ml PO Q4-6H PRN 30 Days #3600 ml PRN Reason: Pain hydrOXYzine PAMOATE [Vistaril] 25 mg PO Q4-6H #30 capsule No Action Pantoprazole Sodium [Protonix] 40 mg PO DAILY #0 Melatonin 10 mg PO HS Multivitamins, Thera [Multivitamin (formulary)] 1 tab PO DAILY Calcium Citrate 250 mg PO DAILY Citalopram Hydrobromide [Citalopram HBr] 40 mg PO DAILY Discharge Medication List Pantoprazole Sodium [Protonix] 40 mg PO DAILY #0 03/27/17 [Rx] Melatonin 10 mg PO HS 05/01/17 [History] Calcium Citrate 250 mg PO DAILY 05/04/17 [History] Multivitamins, Thera [Multivitamin (formulary)] 1 tab PO DAILY 05/04/17 [History ] Citalopram Hydrobromide [Citalopram HBr] 40 mg PO DAILY 05/07/17 [History] Rivaroxaban [Xarelto] 10 mg PO DAILY #30 tab 05/08/17 [Rx] Sennosides [Senokot] 1 tab PO BID #60 tablet 05/08/17 [Rx] HYDROcodone/APAP [[place] Elixir 7.5-325Mg/15Ml] 15 - 30 ml PO Q4-6H PRN 30 Days # 3600 ml 05/09/17 [Rx] hydrOXYzine PAMOATE [Vistaril] 25 mg PO Q4-6H #30 capsule 05/09/17 [Rx] Follow up Appointment(s)/Referral(s): Humberto Mabry MD [Primary Care Provider] - 05/28/17 8:00 am [facility], [NON-STAFF] - Les Mccurdy DO [Doctor of Osteopathic Medicine] - 05/21/17 2:00 pm Ambulatory/Diagnostic Orders: Continuous Passive Motion (CPM) Machine [DME.AMB1] Time Frame: 3 Weeks, Location : Determined By Patient Patient Instructions/Handouts: Knee Replacement (DC) Activity/Diet/Wound Care/Special Instructions: Weightbearing as tolerated with a walker CPM 5-6h daily Leave dressing intact. May be removed by home care nurse in 10 days, 05/18/2017. May shower with dressing on. [facility] with questions or concerns [phone] [facility] - [phone] - Please call once home to arrange delivery. Discharge Disposition: HOME WITH HOME HEALTH SERVICES
== END 2017-05-10 12:21 | disposition home health service (06) | DRG 470 ==
LOC: 2ORMAIN 13:15 → 3SUR 17:15
PROVIDERS: ADMIT Orthopaedic Surgery; ATTEND Orthopaedic Surgery
PROC: 0SRD069 Replacement of Left Knee Joint with Oxidized Zirconium on Polyethylene Synthetic Substitute, Cemented, Open Approach (ICD-10-PCS; principal; 2017-05-07 15:20)
DX: M17.12 Unilateral primary osteoarthritis, left knee (principal); E66.9 Obesity, unspecified; F32.9 Major depressive disorder, single episode, unspecified; G47.33 Obstructive sleep apnea (adult) (pediatric); K21.9 Gastro-esophageal reflux disease without esophagitis; I83.90 Asymptomatic varicose veins of unspecified lower extremity; Z68.37 Body mass index [BMI] 37.0-37.9, adult; Z98.84 Bariatric surgery status; Z96.651 Presence of right artificial knee joint; Z87.891 Personal history of nicotine dependence; Z85.820 Personal history of malignant melanoma of skin; Z79.899 Other long term (current) drug therapy; Z90.49 Acquired absence of other specified parts of digestive tract; Z82.49 Family history of ischemic heart disease and other diseases of the circulatory system
CPT/HCPCS: 85025; 88300

== ENCOUNTER 2017-06-13 09:59 | Day surgery (SDC) | payer BC ==
[2017-06-11 15:48] VITALS: BMI 35.5
--- NOTE | 2017-06-13 09:24 | P.GSHP ---
History of Present Illness H&P Date: 06/13/17 CHIEF COMPLAINT: GERD HISTORY OF PRESENT ILLNESS: The patient is a 57-year-old female who presents reports gastroesophageal reflux disease. Upper endoscopy was offered for further evaluation and management. PAST MEDICAL HISTORY: Please see list. PAST SURGICAL HISTORY: Please see list. MEDICATIONS: Please see list. ALLERGIES: Please see list. SOCIAL HISTORY: No illicit drug use FAMILY HISTORY: No reports of Crohn disease or ulcerative colitis. REVIEW OF ORGAN SYSTEMS: CONSTITUTIONAL: No reports of fevers or chills. GI: Denies any blood in stools or constipation. PHYSICAL EXAM: VITAL SIGNS: Stable GENERAL: Well-developed and pleasant in no acute distress. HEENT: No scleral icterus. Extraocular movements grossly intact. Moist buccal mucosa. NECK: Supple without lymphadenopathy. CHEST: Unlabored respirations. Equal bilateral excursions. CARDIOVASCULAR: Regular rate and rhythm. Distal 2+ pulses. ABDOMEN: Soft, nondistended. MUSCULOSKELETAL: No clubbing, cyanosis, or edema. ASSESSMENT: 1. Gastroesophageal reflux disease PLAN: 1. Recommend proceeding with an upper endoscopy Past Medical History Past Medical History: Cancer, GERD/Reflux, Sleep Apnea/CPAP/BIPAP Additional Past Medical History / Comment(s): HX MELANOMA ON FOREHEAD, hiatal hernia History of Any Multi-Drug Resistant Organisms: None Reported Past Surgical History: Bariatric Surgery, Section, Cholecystectomy, Joint Replacement, Orthopedic Surgery Additional Past Surgical History / Comment(s): ezekiel knee replacement, LAP BAND/ LATER REMOVED. melanoma removed from forehead, arthroscopy rt knee, gastric bypass Past Anesthesia/Blood Transfusion Reactions: No Reported Reaction Smoking Status: Former smoker - Past Family History Father Family Medical History: Cancer Additional Family Medical History / Comment(s): lymphoma, kidney cancer Sister(s) Family Medical History: Cancer Additional Family Medical History / Comment(s): skin cancer Medications and Allergies Home Medications Medication Instructions Recorded Confirmed Type Melatonin 10 mg PO HS 05/01/17 06/11/17 History Multivitamins, Thera [Multivitamin 1 tab PO DAILY 05/04/17 06/11/17 History (formulary)] Citalopram Hydrobromide 40 mg PO DAILY 05/07/17 06/11/17 History [Citalopram HBr] HYDROcodone/APAP [[place] Elixir 15 ml PO Q4-6H PRN 06/11/17 06/11/17 History 7.5-325Mg/15Ml] Pantoprazole Sodium 20 mg PO DAILY 06/11/17 06/11/17 History Allergies Allergy/AdvReac Type Severity Reaction Status Date / Time No Known Allergies Allergy Verified 06/11/17 15:41
[~2017-06-13 09:59] MED LIST changes: -ACETAMINOPHEN TAB 500 MG TAB PO ONE; -DEXAMETHASONE SOD PHOSPHATE 10 MG/ML 1 ML VIAL IV ONE; -HYDROmorphone 0.5 MG/0.5 ML SYRINGE IVP PRN; +LACTATED RINGERS 1,000 ML IV SCH; +LIDOCAINE 1% 20 ML VIAL (10MG/ML) FOR IV START INTRADERMA PRN; -MIDAZOLAM 2 MG/2 ML VIAL IV PRN; -ONDANSETRON 4 MG/2 ML VIAL IVP ONE; -ROPIVACAINE 246.25 MG, EPINEPHrine 0.5 MG, KETOROLAC 30 MG, cloNIDine HCL/PF 80 MCG, WA... MISCELLANE ONE; -TRANEXAMIC ACID 1,000 MG in SODIUM CHLORIDE 0.9% 50 ML IVPB ONE; -ceFAZolin IN SWFI 2 GM/20 ML SYRINGE IVP ONE
[2017-06-13 11:32] VITALS: TEMP 98.2
[2017-06-13] MEDS ORDERED: LIDOCAINE 1% 20 ML VIAL (10MG/ML) FOR IV START INTRADERMA ONE (11:44)
[2017-06-13] MEDS ORDERED: PROPOFOL 10 MG/ML 20 ML VIAL IV ONE (12:35)
[2017-06-13] MEDS ORDERED: LIDOCAINE 1% INJ 10MG/ML (20 ML MDV) ONE (12:35)
--- NOTE | 2017-06-13 12:57 | P.PCN ---
Date of Procedure: 06/13/17 Description of Procedure: PREOPERATIVE DIAGNOSIS: Dysphagia. Nausea with vomiting. Gastroesophageal reflux disease POSTOPERATIVE DIAGNOSIS: Dysphagia. Nausea with vomiting. 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 SURGEON: Lianne Seals MD ANESTHESIA: MAC. INDICATIONS: The patient is a 57-year-old female who presents with a history of dysphagia, including new-onset nausea and vomiting. Benefits and risks of the procedure were described. Informed consent was obtained. DESCRIPTION: The patient was brought into the endoscopy suite and laid in the left lateral decubitus position. After a timeout was confirmed, the procedure was initiated. An Olympus gastroscope was passed along the posterior oropharynx down to the distal esophagus where the squamocolumnar junction was unremarkable. The gastric pouch was entered. A gastrojejunal stricture of 9 mm was found as the adult gastroscope was 9.9 mm in size. A Cost Effective Data balloon dilator was placed through the scope. Final insufflation up to 15 mm was performed with a total of 2 minutes. The scope was advanced up to 60 cm from the incisors into the Tyler limb. The mucosa of the gastrojejunal anastomosis was intact. However no chronic gastrojejunal marginal ulcer was encountered. No full-thickness injury was encountered. The GI tract was desufflated. The patient tolerated the procedure well. FINDINGS: Stricture of approximately 9 mm encountered. No chronic gastrojejunal ulceration encountered. Successful balloon dilatation to 15 mm. RECOMMENDATIONS: Liquid diet. Upper endoscopy as needed. Plan - Discharge Summary New Discharge Prescriptions: No Action Melatonin 10 mg PO HS Multivitamins, Thera [Multivitamin (formulary)] 1 tab PO DAILY Citalopram Hydrobromide [Citalopram HBr] 40 mg PO DAILY Pantoprazole Sodium 20 mg PO DAILY HYDROcodone/APAP [Clifton Elixir 7.5-325Mg/15Ml] 15 ml PO Q4-6H PRN PRN Reason: Pain Discharge Medication List Melatonin 10 mg PO HS 05/01/17 [History] Multivitamins, Thera [Multivitamin (formulary)] 1 tab PO DAILY 05/04/17 [History ] Citalopram Hydrobromide [Citalopram HBr] 40 mg PO DAILY 05/07/17 [History] HYDROcodone/APAP [Clif[place] Elixir 7.5-325Mg/15Ml] 15 ml PO Q4-6H PRN 06/11/17 [ History] Pantoprazole Sodium 20 mg PO DAILY 06/11/17 [History]
[2017-06-13 13:12] VITALS: RESP 16
[2017-06-13 13:41] VITALS: BP 140/77; PULSE 66
== END 2017-06-13 13:59 | disposition home or self-care (01) ==
LOC: ORWHC2ENDO 09:59
PROVIDERS: ATTEND Surgery Plastic and Reconstructive Surgery
DX: K31.89 Other diseases of stomach and duodenum (principal); K21.0 Gastro-esophageal reflux disease with esophagitis; K22.70 Barrett's esophagus without dysplasia; Z90.3 Acquired absence of stomach [part of]; Z98.84 Bariatric surgery status; F39 Unspecified mood [affective] disorder; G47.33 Obstructive sleep apnea (adult) (pediatric); Z99.89 Dependence on other enabling machines and devices; Z85.820 Personal history of malignant melanoma of skin; Z87.891 Personal history of nicotine dependence; Z79.899 Other long term (current) drug therapy; H91.90 Unspecified hearing loss, unspecified ear
CPT/HCPCS: 43245; 43249; 88305

== ENCOUNTER → 2017-07-11 | Outpatient (CLI) | payer SELFPAY ==
[2017-07-11 13:31] VITALS: BP 117/57; PULSE 74; TEMP 98.1; BMI 35.1
--- NOTE | 2017-07-11 13:58 | P.PN ---
Subjective Progress Note Date: 07/11/17 DATE OF SERVICE: 07/11/2017 CHIEF COMPLAINT: Status post gastric bypass HISTORY OF PRESENT ILLNESS: Natali Garcia is a 57-year-old female with previous history of adjustable gastric band with removal. She is now revision from a band to a Tyler-en-Y gastric bypass 03/26/2017. She was last seen 2017. She denies any abdominal pain. Reflux is better. No dysphagia. No dumping syndrome. Decreased joint pain. Has fatigue. She is still using machine for sleep apnea from snoring. She is 4 months out from her surgery. Since her previous visit 3 months ago, she has lost 17 pounds. At a height of 5 foot 7 1/4 inches, her ideal body weight is 158 pounds. Her highest weight was 279 pounds. Today she comes in 226 pounds. Total lifetime weight loss of 53 pounds. Body mass index has decreased from 43.5 to 35.1. Percent excess weight loss is 44%. PHYSICAL EXAM: VITAL SIGNS: 5 feet 7-1/4, 242 pounds. Body mass index 35.1 Vital Signs Temp 98.1 F 07/11/17 13:27 Pulse 74 07/11/17 13:27 Resp BP 117/57 07/11/17 13:27 Pulse Ox Intake & Output 07/10/17 07/11/17 07/11/17 18:59 06:59 18:59 Weight 102.512 kg GENERAL: Well-developed female in no acute distress. HEENT: No scleral icterus. Extraocular movements grossly intact. Moist buccal mucosa. NECK: Supple without lymphadenopathy. CHEST: Nonlabored respirations. Equal bilateral excursions. CARDIOVASCULAR: Regular rate and rhythm. ABDOMEN: No incisional hernias the bariatric site. Soft nontender nondistended. MUSCULOSKELETAL: No clubbing, cyanosis, or edema. NEURO: No focal or lateralizing signs. Cranial nerves II to XII grossly intact. PSYCH: Appropriate affect. Alert and oriented to person, place, and time. SKIN: Good skin turgor. Well perfused. Laboratory Last Values WBC 9.7 k/uL (3.8-10.6) 04/25/17 13:37 RBC 4.87 m/uL (3.80-5.40) 04/25/17 13:37 Hgb 13.4 gm/dL (11.4-16.0) 04/25/17 13:37 Hct 42.7 % (34.0-46.0) 04/25/17 13:37 MCV 87.7 fL (80.0-100.0) 04/25/17 13:37 MCH 27.6 pg (25.0-35.0) 04/25/17 13:37 MCHC 31.5 g/dL (31.0-37.0) 04/25/17 13:37 RDW 15.1 % (11.5-15.5) 04/25/17 13:37 Plt Count 247 k/uL (150-450) 04/25/17 13:37 PT 10.3 sec (9.0-12.0) 04/25/17 13:37 INR 1.1 (<1.2) 04/25/17 13:37 APTT 24.3 sec (22.0-30.0) 04/25/17 13:37 Sodium 142 mmol/L (137-145) 04/25/17 13:37 Potassium 4.3 mmol/L (3.5-5.1) 04/25/17 13:37 Chloride 107 mmol/L (98-107) 04/25/17 13:37 Carbon Dioxide 22 mmol/L (22-30) 04/25/17 13:37 Anion Gap 13 mmol/L 04/25/17 13:37 BUN 21 mg/dL (7-17) H 04/25/17 13:37 Creatinine 0.96 mg/dL (0.52-1.04) 04/25/17 13:37 Est GFR (MDRD) Af Amer >60 (>60 ml/min/1.73 sqM) 04/25/17 13:37 Est GFR (MDRD) Non-Af 60 (>60 ml/min/1.73 sqM) 04/25/17 13:37 Glucose 119 mg/dL (74-99) H 04/25/17 13:[address] Glu mg/dL 120 04/25/17 13:37 Hemoglobin A1c 5.8 % (4.0-6.0) 04/25/17 13:37 Calcium 10.2 mg/dL (8.4-10.2) 04/25/17 13:37 Phosphorus 3.6 mg/dL (2.5-4.5) 04/25/17 13:37 Magnesium 2.0 mg/dL (1.6-2.3) 04/25/17 13:37 Iron 76 ug/dL (50-170) 04/25/17 13:37 TIBC 357 ug/dL (228-460) 04/25/17 13:37 Iron Saturation 21.29 (12.00-45.00) 04/25/17 13:37 Ferritin 22.9 ng/mL (10.0-291.0) 04/25/17 13:37 Total Bilirubin 0.7 mg/dL (0.2-1.3) 04/25/17 13:37 AST 28 U/L (14-36) 04/25/17 13:37 ALT 43 U/L (9-52) 04/25/17 13:37 Alkaline Phosphatase 126 U/L (38-126) 04/25/17 13:37 Total Protein 7.0 g/dL (6.3-8.2) 04/25/17 13:37 Albumin 4.3 g/dL (3.5-5.0) 04/25/17 13:37 Prealbumin 20.0 mg/dL (18.0-42.0) 04/25/17 13:37 Triglycerides 91 mg/dL (<150) 04/25/17 13:37 Cholesterol 156 mg/dL (<200) 04/25/17 13:37 LDL Cholesterol, Calc 83 mg/dL (0-99) 04/25/17 13:37 HDL Cholesterol 55 mg/dL (40-60) 04/25/17 13:37 Vitamin A 34 ug/dL (38-106) L 04/25/17 13:37 Vitamin B1 51 ug/L (38-122) 04/25/17 13:37 Vitamin B12 501.0 pg/mL (200.0-944.0) 04/25/17 13:37 Vitamin D 25-Hydroxy 21.7 ng/mL (30.0-100.0) L 04/25/17 13:37 Folate 5.0 ng/mL 04/25/17 13:37 TSH 0.676 mIU/L (0.465-4.680) 04/25/17 13:37 PTH Intact 150.7 pg/mL (14.0-72.0) H 04/25/17 13:37 Copper 987 ug/L (810-1990) 04/25/17 13:37 Selenium 123 mcg/L (63-160) 04/25/17 13:37 Zinc 71 ug/dL (60-130) 04/25/17 13:37 Hep C IgG Ab Non-Reactive (Non-Reactive) 04/25/17 13:37 Vitamin A is low. Vitamin D is low. PTH is elevated. Hemoglobin A1c 5.8%, prediabetic ASSESSMENT: 1. Morbid obesity due to excess calories. 2. Body mass index of 43.3 to 35.1 3. Obstructive sleep apnea. 4. Hypertensive heart disease. 5. End-stage bilateral knee osteoarthritis. 6. Gastroesophageal reflux disease. 7. Status post gastric bypass revision from gastric band. 8. Dysphagia to solid foods, resolved. PLAN: 1. Last labs reviewed. 2. Due for bariatric labs. 3. Discussed vitamin A rich foods to eat. 4. Reviewed hair loss. Will check selenium and protein levels. 5. Follow up October 2017. Objective - Vital Signs Vital signs: Vital Signs Temp 98.1 F 07/11/17 13:27 Pulse 74 07/11/17 13:27 Resp BP 117/57 07/11/17 13:27 Pulse Ox Intake & Output 07/10/17 07/11/17 07/11/17 18:59 06:59 18:59 Weight 102.512 kg
== END | disposition home or self-care (01) ==
LOC: BARWHC3 12:55
PROVIDERS: ATTEND Surgery Plastic and Reconstructive Surgery
DX: Z09 Encounter for follow-up examination after completed treatment for conditions other than malignant neoplasm (principal); E66.01 Morbid (severe) obesity due to excess calories; K21.9 Gastro-esophageal reflux disease without esophagitis; R53.83 Other fatigue; M17.0 Bilateral primary osteoarthritis of knee; G47.33 Obstructive sleep apnea (adult) (pediatric); I11.9 Hypertensive heart disease without heart failure; Z99.89 Dependence on other enabling machines and devices; Z98.84 Bariatric surgery status; Z68.35 Body mass index [BMI] 35.0-35.9, adult
CPT/HCPCS: 97803; 99211

== ENCOUNTER → 2017-07-25 | Outpatient (CLI) | payer OTHER ==
[2017-07-25 16:09] LABS: HCT 40.4 % (34.0-46.0); HGB 13.1 gm/dL (11.4-16.0); MCH 27.8 pg (25.0-35.0); MCHC 32.4 g/dL (31.0-37.0); MCV 85.8 fL (80.0-100.0); Mean Platelet Volume 7.2; Platelet Count 318 k/uL (150-450); RDW 15.7 % (11.5-15.5); WBC 9.4 k/uL (3.8-10.6)
[2017-07-25 16:18] LABS: INR 1.1 (<1.2); Partial Thromboplastin Time 23.6 sec (22.0-30.0); Prothrombin Time 10.4 sec (9.0-12.0)
[2017-07-25 16:22] LABS: ALT 52 U/L (9-52); AST 32 U/L (14-36); Albumin 4.3 g/dL (3.5-5.0); Alkaline Phosphatase 139 U/L (38-126); Anion Gap 15 mmol/L; Blood Urea Nitrogen 18 mg/dL (7-17); Calcium 9.8 mg/dL (8.4-10.2); Carbon Dioxide 25 mmol/L (22-30); Chloride 104 mmol/L (98-107); Cholesterol 156 mg/dL (<200); Glucose 115 mg/dL (74-99); HDL Cholesterol 53 mg/dL (40-60); LDL Cholesterol,Calculated 84 mg/dL (0-99); Magnesium 2.1 mg/dL (1.6-2.3); Phosphorus 4.2 mg/dL (2.5-4.5); Sodium 144 mmol/L (137-145); Total Bilirubin 0.5 mg/dL (0.2-1.3); Total Protein 6.9 g/dL (6.3-8.2); Triglycerides 97 mg/dL (<150)
[2017-07-26 01:23] LABS: Vitamin D 25 Hydroxy 28.6 ng/mL (30.0-100.0)
[2017-07-26 01:27] LABS: Folate, Serum 13.6 ng/mL; Iron Saturation 8.13 (12.00-45.00)
[2017-07-26 01:36] LABS: Hemoglobin A1C 5.4 % (4.0-6.0)
[2017-07-26 12:50] LABS: Vitamin A 44 ug/dL (38-106)
[2017-07-26 14:20] LABS: Zinc, Serum 60 ug/dL (60-130)
[2017-07-26 22:41] LABS: Vitamin B1 70 ug/L (38-122)
[2017-07-27 16:54] LABS: Selenium 155 mcg/L (63-160)
== END | disposition home or self-care (01) ==
LOC: LABWHC1 15:13
PROVIDERS: ATTEND Surgery Plastic and Reconstructive Surgery
DX: E55.9 Vitamin D deficiency, unspecified (principal); E66.01 Morbid (severe) obesity due to excess calories; E89.1 Postprocedural hypoinsulinemia; D50.8 Other iron deficiency anemias; K90.89 Other intestinal malabsorption; K74.1 Hepatic sclerosis; N19 Unspecified kidney failure; K50.90 Crohn's disease, unspecified, without complications
CPT/HCPCS: 36415; 80053; 80061; 82306; 82525; 82607; 82728; 82746; 83036; 83540; 83550; 83735; 83970; 84100; 84134; 84255; 84425; 84443; 84590; 84630; 85027; 85610; 85730

== ENCOUNTER → 2017-08-02 | Outpatient (CLI) | payer OTHER ==
--- NOTE | 2017-08-13 10:10 | MM ---
Reason for exam: screening (asymptomatic). Last mammogram was performed 2 years and 4 months ago. History: Patient is postmenopausal. Physical Findings: A clinical breast exam by your physician is recommended on an annual basis and results should be correlated with mammographic findings. MG Screening Mammo w CAD Bilateral CC and MLO view(s) were taken. Prior study comparison: April 09, 2015, mammogram, performed at [place]. December 02, 2012, mammogram, performed at [place]. The breast tissue is heterogeneously dense. This may lower the sensitivity of mammography. Benign appearing bilateral calcifications. No suspicious abnormality. No significant changes when compared with prior studies. ASSESSMENT: Benign, BI-RAD 2 RECOMMENDATION: Routine screening mammogram of both breasts in 1 year.
== END | disposition home or self-care (01) ==
LOC: RADMAMWWP 08:36
PROVIDERS: ATTEND Family Medicine
DX: Z12.31 Encounter for screening mammogram for malignant neoplasm of breast (principal)
CPT/HCPCS: 77067

== ENCOUNTER → 2017-11-21 | Outpatient (CLI) | payer BC ==
--- NOTE | 2017-11-21 14:09 | P.PN ---
Subjective Progress Note Date: 11/21/17 DATE OF SERVICE: 11/21/17 CHIEF COMPLAINT: Status post gastric bypass HISTORY OF PRESENT ILLNESS: Natali Garcia is a 57-year-old female with previous history of adjustable gastric band with removal. She is had revision from a band to a Tyler-en-Y gastric bypass 03/26/2017. She is 8 months out. She has no heartburn. She feels better. No dysphagia. She wants to get to 165 pounds. She reports recurrent UTIs. Since her previous visit 4 months ago, she has lost 9 pounds. At a height of 5 foot 7 1/4 inches, her ideal body weight is 158 pounds. Her highest weight was 279 pounds. Today she comes in 217 pounds from 226 pounds, 4 months ago. Total lifetime weight loss of 62 pounds. Body mass index has decreased from 43.2 to 33.5. Percent excess weight loss is 52%. PHYSICAL EXAM: VITAL SIGNS: 5 feet 7-1/4, 217 pounds. Body mass index 33.5 Vital Signs Temp 97.9 F 11/21/17 15:14 Pulse 80 11/21/17 15:14 Resp BP 140/72 11/21/17 15:14 Pulse Ox GENERAL: Well-developed female in no acute distress. HEENT: No scleral icterus. Extraocular movements grossly intact. Moist buccal mucosa. NECK: Supple without lymphadenopathy. CHEST: Nonlabored respirations. Equal bilateral excursions. CARDIOVASCULAR: Regular rate and rhythm. ABDOMEN: Soft nontender nondistended. No incisional hernias. MUSCULOSKELETAL: No clubbing, cyanosis, or edema. NEURO: No focal or lateralizing signs. Cranial nerves II to XII grossly intact. PSYCH: Appropriate affect. Alert and oriented to person, place, and time. SKIN: Good skin turgor. Well perfused. ASSESSMENT: 1. Morbid obesity due to excess calories. 2. Body mass index of 43.3 to 33.5 3. Obstructive sleep apnea. 4. Hypertensive heart disease. 5. End-stage bilateral knee osteoarthritis. 6. Gastroesophageal reflux disease. 7. Status post gastric bypass revision from gastric band. 8. Overactive bladder 9. Chronic urinary tract infections PLAN: 1. She is due for bariatric labs 2. We went over [facility] calculator expectations and she is on target. 3. Protein intake 75 grams advised 4. She has overactive baldder recommend Detrol 5. Additionally recommend get urine culture for chronic urinary tract infection Laboratory Last Values WBC 8.3 k/uL (3.8-10.6) 11/21/17 15:06 RBC 4.76 m/uL (3.80-5.40) 11/21/17 15:06 Hgb 13.3 gm/dL (11.4-16.0) 11/21/17 15:06 Hct 43.0 % (34.0-46.0) 11/21/17 15:06 MCV 90.3 fL (80.0-100.0) 11/21/17 15:06 MCH 27.8 pg (25.0-35.0) 11/21/17 15:06 MCHC 30.8 g/dL (31.0-37.0) L 11/21/17 15:06 RDW 14.0 % (11.5-15.5) 11/21/17 15:06 Plt Count 286 k/uL (150-450) 11/21/17 15:06 Hypochromasia Slight 11/21/17 15:06 PT 10.0 sec (9.0-12.0) 11/21/17 15:06 INR 1.0 (<1.2) 11/21/17 15:06 APTT 23.7 sec (22.0-30.0) 11/21/17 15:06 Sodium 142 mmol/L (137-145) 11/21/17 15:06 Potassium 4.0 mmol/L (3.5-5.1) 11/21/17 15:06 Chloride 105 mmol/L (98-107) 11/21/17 15:06 Carbon Dioxide 27 mmol/L (22-30) 11/21/17 15:06 Anion Gap 10 mmol/L 11/21/17 15:06 BUN 19 mg/dL (7-17) H 11/21/17 15:06 Creatinine 0.81 mg/dL (0.52-1.04) 11/21/17 15:06 Est GFR (CKD-EPI)AfAm >90 (>60 ml/min/1.73 sqM) 11/21/17 15:06 Est GFR (CKD-EPI)NonAf 81 (>60 ml/min/1.73 sqM) 11/21/17 15:06 Glucose 71 mg/dL (74-99) L 11/21/17 15:[address] Glu mg/dL 117 11/21/17 15:06 Hemoglobin A1c 5.7 % (4.0-6.0) 11/21/17 15:06 Calcium 9.7 mg/dL (8.4-10.2) 11/21/17 15:06 Phosphorus 4.7 mg/dL (2.5-4.5) H 11/21/17 15:06 Magnesium 1.9 mg/dL (1.6-2.3) 11/21/17 15:06 Iron 70 ug/dL (50-170) 11/21/17 15:06 TIBC 385 ug/dL (228-460) 11/21/17 15:06 Iron Saturation 18.18 (12.00-45.00) 11/21/17 15:06 Ferritin 16.0 ng/mL (10.0-291.0) 11/21/17 15:06 Total Bilirubin 0.4 mg/dL (0.2-1.3) 11/21/17 15:06 AST 24 U/L (14-36) 11/21/17 15:06 ALT 30 U/L (9-52) 11/21/17 15:06 Alkaline Phosphatase 149 U/L (38-126) H 11/21/17 15:06 Total Protein 6.8 g/dL (6.3-8.2) 11/21/17 15:06 Albumin 4.1 g/dL (3.5-5.0) 11/21/17 15:06 Prealbumin 20.0 mg/dL (18.0-42.0) 11/21/17 15:06 Triglycerides 100 mg/dL (<150) 11/21/17 15:06 Cholesterol 156 mg/dL (<200) 11/21/17 15:06 LDL Cholesterol, Calc 74 mg/dL (0-99) 11/21/17 15:06 HDL Cholesterol 62 mg/dL (40-60) H 11/21/17 15:06 Vitamin A 42 ug/dL (38-106) 11/21/17 15:06 Vitamin B1 87 ug/L (38-122) 11/21/17 15:06 Vitamin B12 2318.0 pg/mL (200.0-944.0) H 11/21/17 15:06 Vitamin D 25-Hydroxy 38.3 ng/mL (30.0-100.0) 11/21/17 15:06 Folate 18.1 ng/mL 11/21/17 15:06 TSH 0.564 mIU/L (0.465-4.680) 11/21/17 15:06 PTH Intact 62.6 pg/mL (14.0-72.0) 11/21/17 15:06 Urine Color Colorless 11/21/17 15:06 Urine Appearance Clear (Clear) 11/21/17 15:06 Urine pH 5.5 (5.0-8.0) 11/21/17 15:06 Ur Specific Thompson 1.005 (1.001-1.035) 11/21/17 15:06 Urine Protein Negative (Negative) 11/21/17 15:06 Urine Glucose (UA) Negative (Negative) 11/21/17 15:06 Urine Ketones Negative (Negative) 11/21/17 15:06 Urine Blood Negative (Negative) 11/21/17 15:06 Urine Nitrite Negative (Negative) 11/21/17 15:06 Urine Bilirubin Negative (Negative) 11/21/17 15:06 Urine Urobilinogen <2.0 mg/dL (<2.0) 11/21/17 15:06 Ur Leukocyte Esterase Negative (Negative) 11/21/17 15:06 Copper 1084 ug/L (810-1990) 11/21/17 15:06 Selenium 124 mcg/L (63-160) 11/21/17 15:06 Zinc 84 ug/dL (60-130) 11/21/17 15:06 Objective - Labs CBC & Chem 7: 11/21/17 15:06 11/21/17 15:06
[2017-11-21 16:05] LABS: Appearance,Urine Clear (Clear); Bilirubin,Urine Negative (Negative); Blood,Urine Negative (Negative); Color,Urine Colorless; Glucose,Urine (UA) Negative (Negative); Ketones,Urine Negative (Negative); Leukocyte Esterase,Urine Negative (Negative); Nitrite,Urine Negative (Negative); PH, Urine 5.5 (5.0-8.0); Protein,Urine Negative (Negative); Specific Gravity,Urine 1.005 (1.001-1.035); Urobilinogen,Urine <2.0 mg/dL (<2.0)
[2017-11-21 16:15] LABS: HGB 13.3 gm/dL (11.4-16.0); Hypochromasia Slight; MCH 27.8 pg (25.0-35.0); MCHC 30.8 g/dL (31.0-37.0); MCV 90.3 fL (80.0-100.0); Mean Platelet Volume 6.9; Platelet Count 286 k/uL (150-450); RBC 4.76 m/uL (3.80-5.40); WBC 8.3 k/uL (3.8-10.6)
[2017-11-21 16:19] LABS: Partial Thromboplastin Time 23.7 sec (22.0-30.0)
[2017-11-21 16:39] LABS: ALT 30 U/L (9-52); AST 24 U/L (14-36); Albumin 4.1 g/dL (3.5-5.0); Alkaline Phosphatase 149 U/L (38-126); Anion Gap 10 mmol/L; Blood Urea Nitrogen 19 mg/dL (7-17); Calcium 9.7 mg/dL (8.4-10.2); Carbon Dioxide 27 mmol/L (22-30); Chloride 105 mmol/L (98-107); Cholesterol 156 mg/dL (<200); Glucose 71 mg/dL (74-99); HDL Cholesterol 62 mg/dL (40-60); LDL Cholesterol,Calculated 74 mg/dL (0-99); Magnesium 1.9 mg/dL (1.6-2.3); Phosphorus 4.7 mg/dL (2.5-4.5); Sodium 142 mmol/L (137-145); Total Bilirubin 0.4 mg/dL (0.2-1.3); Total Protein 6.8 g/dL (6.3-8.2); Triglycerides 100 mg/dL (<150)
[2017-11-22 01:53] LABS: Iron Saturation 18.18 (12.00-45.00)
[2017-11-22 02:00] LABS: Vitamin D 25 Hydroxy 38.3 ng/mL (30.0-100.0)
[2017-11-22 02:25] LABS: Folate, Serum 18.1 ng/mL
[2017-11-22 02:40] LABS: Parathyroid Hormone Intact 62.6 pg/mL (14.0-72.0)
[2017-11-22 04:41] LABS: Hemoglobin A1C 5.7 % (4.0-6.0)
[2017-11-22 07:59] VITALS: BMI 33.5
[2017-11-22 11:23] VITALS: BP 140/72; PULSE 80; TEMP 97.9
[2017-11-22 13:51] LABS: Zinc, Serum 84 ug/dL (60-130)
[2017-11-23 07:04] LABS: Vitamin A 42 ug/dL (38-106)
[2017-11-23 08:12] LABS: Vitamin B1 87 ug/L (38-122)
[2017-11-24 11:59] LABS: Selenium 124 mcg/L (63-160)
== END | disposition home or self-care (01) ==
LOC: BARWHC3 13:40
PROVIDERS: ATTEND Surgery Plastic and Reconstructive Surgery
DX: Z48.815 Encounter for surgical aftercare following surgery on the digestive system (principal); R63.4 Abnormal weight loss; E66.01 Morbid (severe) obesity due to excess calories; G47.33 Obstructive sleep apnea (adult) (pediatric); I11.9 Hypertensive heart disease without heart failure; M17.0 Bilateral primary osteoarthritis of knee; K21.9 Gastro-esophageal reflux disease without esophagitis; N32.81 Overactive bladder; N39.0 Urinary tract infection, site not specified; Z98.84 Bariatric surgery status; Z68.33 Body mass index [BMI] 33.0-33.9, adult
CPT/HCPCS: 36415; 80053; 80061; 81003; 82306; 82525; 82607; 82728; 82746; 83036; 83540; 83550; 83735; 83970; 84100; 84134; 84255; 84425; 84443; 84590; 84630; 85027; 85610; 85730; 87086; 97803; 99211

== ENCOUNTER → 2018-03-27 | Outpatient (CLI) | payer BC ==
[2018-03-27 16:06] VITALS: BP 127/77; PULSE 77; TEMP 98.2; BMI 34.7
--- NOTE | 2018-03-27 16:49 | P.PN ---
Subjective Progress Note Date: 03/27/18 DATE OF SERVICE: 03/27/2018 CHIEF COMPLAINT: Status post gastric bypass HISTORY OF PRESENT ILLNESS: Natali Garcia is a 58-year-old female with previous history of adjustable gastric band with removal. She is had revision from a band to a Tyler-en-Y gastric bypass 03/26/2017. She is 1 year out. She is mourning the of her and has stopped eating. She has stopped eating 3 months ago. No abdominal pain. She is not sleeping. No reports of gastroesophageal reflux disease. At a height of 5 foot 7 1/4 inches, her ideal body weight is 158 pounds. Her highest weight was 279 pounds. Today she comes in 223 pounds from 217 pounds, 4 months ago. She has gained 7 pounds. Total lifetime weight loss of 58 pounds. Body mass index has decreased from 43.5 to 34.5. Percent excess weight loss is 46 %. PHYSICAL EXAM: VITAL SIGNS: 5 feet 7-1/4, 223 pounds. Body mass index 34.8 Vital Signs Temp 98.2 F 03/27/18 16:03 Pulse 77 03/27/18 16:03 Resp BP 127/77 03/27/18 16:03 Pulse Ox GENERAL: Well-developed female in no acute distress. HEENT: No scleral icterus. Extraocular movements grossly intact. Moist buccal mucosa. NECK: Supple without lymphadenopathy. CHEST: Nonlabored respirations. Equal bilateral excursions. CARDIOVASCULAR: Regular rate and rhythm. ABDOMEN: Soft nontender nondistended. No incisional hernias. MUSCULOSKELETAL: No clubbing, cyanosis, or edema. NEURO: No focal or lateralizing signs. Cranial nerves II to XII grossly intact. PSYCH: Appropriate affect. Alert and oriented to person, place, and time. SKIN: Good skin turgor. Well perfused. ASSESSMENT: 1. Morbid obesity due to excess calories. 2. Body mass index of 43.3 to 34.8 3. Obstructive sleep apnea. 4. Hypertensive heart disease. 5. End-stage bilateral knee osteoarthritis. 6. Gastroesophageal reflux disease. 7. Status post gastric bypass revision from gastric band. 8. Overactive bladder 9. Depressive mood following loss of spouse PLAN: 1. Recommend bariatric labs 2. She has not followed up with her PCP for grieving. Arrangement of grieve counseling made. 3. Weekly phone call update per bariatric center Objective - Vital Signs Vital signs: Vital Signs Temp 98.2 F 03/27/18 16:03 Pulse 77 03/27/18 16:03 Resp BP 127/77 03/27/18 16:03 Pulse Ox Intake & Output 03/26/18 03/27/18 03/27/18 18:59 06:59 18:59 Weight 101.469 kg
== END ==
LOC: BARWHC3 14:20
PROVIDERS: ATTEND Surgery Plastic and Reconstructive Surgery
DX: Z48.815 Encounter for surgical aftercare following surgery on the digestive system (principal); E66.01 Morbid (severe) obesity due to excess calories; G47.33 Obstructive sleep apnea (adult) (pediatric); I11.9 Hypertensive heart disease without heart failure; M17.0 Bilateral primary osteoarthritis of knee; K21.9 Gastro-esophageal reflux disease without esophagitis; F32.9 Major depressive disorder, single episode, unspecified; N32.89 Other specified disorders of bladder; Z98.84 Bariatric surgery status; Z68.34 Body mass index [BMI] 34.0-34.9, adult
CPT/HCPCS: 97803; 99211

== ENCOUNTER → 2018-03-29 | Outpatient (CLI) | payer BC ==
[2018-03-29 12:27] LABS: HCT 39.3 % (34.0-46.0); HGB 12.2 gm/dL (11.4-16.0); MCH 28.2 pg (25.0-35.0); MCHC 31.1 g/dL (31.0-37.0); MCV 90.5 fL (80.0-100.0); Mean Platelet Volume 7.2; Platelet Count 266 k/uL (150-450); RBC 4.34 m/uL (3.80-5.40); RDW 14.7 % (11.5-15.5); WBC 6.5 k/uL (3.8-10.6)
[2018-03-29 12:35] LABS: INR 0.9 (<1.2); Partial Thromboplastin Time 24.2 sec (22.0-30.0); Prothrombin Time 10.1 sec (9.0-12.0)
[2018-03-29 19:51] LABS: Iron Saturation 10.87 (12.00-45.00)
[2018-03-29 19:59] LABS: Vitamin D 25 Hydroxy 36.7 ng/mL (30.0-100.0)
[2018-03-29 20:01] LABS: Folate, Serum 8.9 ng/mL
[2018-03-29 20:19] LABS: Albumin 4.3 g/dL (3.80-4.90); Albumin/Globulin Ratio 2.39 (1.20-2.10); Anion Gap 8.3 mmol/L (4.00-12.00); Calcium 9.2 mg/dL (8.7-10.3); Carbon Dioxide 27.7 mmol/L (21.6-31.8); Globulin 1.8 g/dL (1.6-3.3); LDL Cholesterol,Calculated 77.2 mg/dL (0.0-131.0); Magnesium 2.2 mg/dL (1.5-2.4); Parathyroid Hormone Intact 105.2 pg/mL (14.0-72.0); Phosphorus 4.3 mg/dL (2.4-5.1); Total Bilirubin 0.4 mg/dL (0.3-1.2); Total Protein 6.1 g/dL (6.2-8.2); VLDL Calculation 17.8 mg/dL (5.00-40.00)
[2018-04-01 12:54] LABS: Zinc, Serum 64 ug/dL (60-130)
[2018-04-02 07:56] LABS: Vitamin A 46 ug/dL (38-106)
[2018-04-02 11:23] LABS: Vitamin B1 81 ug/L (38-122)
== END ==
LOC: LABWHC1 11:47
PROVIDERS: ATTEND Surgery Plastic and Reconstructive Surgery
DX: E66.01 Morbid (severe) obesity due to excess calories (principal); E89.1 Postprocedural hypoinsulinemia; D50.9 Iron deficiency anemia, unspecified; K90.9 Intestinal malabsorption, unspecified; E55.9 Vitamin D deficiency, unspecified; E21.1 Secondary hyperparathyroidism, not elsewhere classified; K74.1 Hepatic sclerosis; N19 Unspecified kidney failure; K50.90 Crohn's disease, unspecified, without complications
CPT/HCPCS: 36415; 80053; 80061; 82306; 82525; 82607; 82728; 82746; 83036; 83540; 83550; 83735; 83970; 84100; 84134; 84255; 84425; 84443; 84590; 84630; 85027; 85610; 85730

== ENCOUNTER → 2018-07-12 | Outpatient (CLI) | payer BC ==
--- NOTE | 2018-07-12 08:48 | CT ---
EXAMINATION TYPE: CT urogram wo/w con DATE OF EXAM: 07/12/2018 HISTORY: Hematuria for 1.5 years with urinary frequency CT DLP: 3738mGycm Automated Exposure Control for Dose Reduction was Utilized. CONTRAST: CT scan of the abdomen and pelvis is performed without oral but without and with IV Contrast, patient injected with 100 mL of Isovue 300. Urogram protocol with 3-D reconstructed images created at an ind ependent workstation and reviewed. COMPARISON: None FINDINGS: KUB: There is single 2 to 3 mm calculus lower pole of the right kidney coronal image 75. Postcontrast images show symmetric or directly uptake and excretion from both kidneys without hydronephrosis iden tified bilaterally. A few small parapelvic cysts centrally in the left kidney are present lower pole level. No concerning solid or cystic renal mass in either kidney is identified. Ureters show complete contrast opacification without suspicious mass. Bladder is poorly distended without intraluminal mas s calculus or suspicious wall thickening. Occasional tiny left-sided pelvic phlebolith is seen. LUNG BASES: No significant abnormality is appreciated. LIVER/GB: Cholecystectomy clips are present. PANCREAS: No significant abnormality is seen. SPLEEN:. A 1.3 cm splenule in the splenic hilum image 15. ADRENALS: No significant abnormality is seen. BOWEL: No suspicious small or large bowel dilatation. Surgical changes from gastric bypass procedure noted epigastric region. UTERUS/ADNEXA: No gross abnormality seen. LYMPH NODES: No greater than 1cm abdominal or pelvic lymph nodes are appreciated. OSSEOUS STRUCTURES: Facet arthropathy lower lumbar spine. OTHER: No significant additional abnormality is seen. IMPRESSION: Single 2 to 3 mm calculus right kidney. No suspicious mass or hydronephrosis otherwise se en.
== END ==
LOC: RADCTMAIN 06:29
PROVIDERS: ATTEND Urology
DX: N20.0 Calculus of kidney (principal); Z88.8 Allergy status to other drugs, medicaments and biological substances
CPT/HCPCS: 74178; 74400; Q9967

== ENCOUNTER → 2018-08-06 | Outpatient (CLI) | payer BC ==
--- NOTE | 2018-08-08 10:10 | MM ---
Reason for exam: screening (asymptomatic). Last mammogram was performed 1 year ago. History: Patient is postmenopausal and history of other cancer. Physical Findings: A clinical breast exam by your physician is recommended on an annual basis and results should be correlated with mammographic findings. MG Screening Mammo w CAD Bilateral CC and MLO view(s) were taken. Prior study comparison: August 02, 2017, bilateral MG screening mammo w CAD. April 09, 2015, mammogram, performed at [place]. Finding: There is an equal density (isodense), indistinct lobulated mass located 9 cm from the nipple in the upper quadrant, middle position of the left breast on MLO. Focal asymmetry right upper outer quadrant, stable. New finding since August 02, 2017 and April 09, 2015. ASSESSMENT: Incomplete: need additional imaging evaluation, BI-RAD 0 RECOMMENDATION: Special view mammogram of the left breast. If lesion persists on supplemental views, image directed ultrasound is recommended. [facility] will attempt to contact patient to return for supplemental views and ultrasound if indicated.
== END | disposition home or self-care (01) ==
LOC: RADMAMWWP 07:23
PROVIDERS: ATTEND Family Medicine
DX: Z12.31 Encounter for screening mammogram for malignant neoplasm of breast (principal)
CPT/HCPCS: 77067

== ENCOUNTER → 2018-08-15 | Outpatient (CLI) | payer BC ==
--- NOTE | 2018-08-15 09:48 | MM ---
Reason for exam: additional evaluation requested from abnormal screening. Last mammogram was performed less than 1 month ago. History: Patient is postmenopausal and history of other cancer. Physical Findings: Nurse did not find any significant physical abnormalities on exam. MG 3D Work Up W/Cad LT ML, spot compression MLO, and spot compression CC view(s) were taken of the left breast. Prior study comparison: August 06, 2018, bilateral MG screening mammo w CAD. August 02, 2017, bilateral MG screening mammo w CAD. The breast tissue is heterogeneously dense. This may lower the sensitivity of mammography. Persistent superior left breast asymmetry without correlate on CC 3D images on MLO appears as overlap. Follow up 6 month mammogram and ultrasound. These results were verbally communicated with the patient and result sheet given to the patient on 08/15/18. ASSESSMENT: Incomplete: need additional imaging evaluation, BI-RAD 0 RECOMMENDATION: Ultrasound of the left breast. (superior breast)
--- NOTE | 2018-08-15 09:50 | USB ---
Reason for exam: additional evaluation requested from abnormal screening. History: Patient is postmenopausal and history of other cancer. US Breast Workup Limited LT Left limited breast ultrasound including focal area of concern, retroareolar and axilla demonstrates a 0.4 x 0.5 x 0.3cm oval, cystic lesion at 12 o'clock, likely cystic as there is a well defined post wall however no post enhancement likely due to small size. These results were verbally communicated with the patient and result sheet given to the patient on 08/15/18. ASSESSMENT: Probably benign, BI-RAD 3 RECOMMENDATION: Follow-up diagnostic mammogram and ultrasound of the left breast in 6 months.
== END | disposition home or self-care (01) ==
LOC: RADMAMWWP 07:01
PROVIDERS: ATTEND Family Medicine
DX: R92.8 Other abnormal and inconclusive findings on diagnostic imaging of breast (principal)
CPT/HCPCS: 77061; 77065

== ENCOUNTER → 2018-09-19 | Outpatient (CLI) | payer BC ==
[2018-09-19 10:01] VITALS: BP 112/74; PULSE 77; RESP 16; TEMP 98.7; BMI 35.2
--- NOTE | 2018-09-19 10:59 | P.PN ---
Subjective Progress Note Date: 09/19/18 HPI: She reports having a kidney stone. She reports weight gain. She report pain. ABDOMEN: Soft ASSESSMENT: 1. Kidney stone PLAN: 1. Flomax, Motrin for kidney stone 2. She has a gastric bypass. 3. Prilosec 4. Referral to pain specialist for back 5. MyFitness Pal 6. Lab for iron and getting iron infusion Objective - Vital Signs Vital signs: Vital Signs Temp 98.7 F 09/19/18 09:57 Pulse 77 09/19/18 09:57 Resp 16 09/19/18 09:57 BP 112/74 09/19/18 09:57 Pulse Ox Intake & Output 09/18/18 09/19/18 09/19/18 18:59 06:59 18:59 Weight 102.965 kg
== END | disposition home or self-care (01) ==
LOC: BARWHC3 09:16
PROVIDERS: ATTEND Surgery Plastic and Reconstructive Surgery
DX: E66.01 Morbid (severe) obesity due to excess calories (principal); N20.0 Calculus of kidney; Z68.35 Body mass index [BMI] 35.0-35.9, adult
CPT/HCPCS: 97803; 99211

== ENCOUNTER → 2018-09-19 | Outpatient (CLI) | payer BC ==
[2018-09-19 11:55] LABS: Hypochromasia Slight; MCH 26.4 pg (25.0-35.0); MCHC 31.6 g/dL (31.0-37.0); MCV 83.3 fL (80.0-100.0); Mean Platelet Volume 7.1; Platelet Count 289 k/uL (150-450); RBC 4.56 m/uL (3.80-5.40); RDW 15.8 % (11.5-15.5); WBC 8.2 k/uL (3.8-10.6)
[2018-09-19 12:17] LABS: INR 0.9 (<1.2); Partial Thromboplastin Time 24.8 sec (22.0-30.0); Prothrombin Time 9.9 sec (9.0-12.0)
[2018-09-19 16:50] LABS: Vitamin D 25 Hydroxy 31.7 ng/mL (30.0-100.0)
[2018-09-19 17:02] LABS: Folate, Serum 16.9 ng/mL; Iron Saturation 9.71 (12.00-45.00)
[2018-09-19 17:03] LABS: Parathyroid Hormone Intact 119.3 pg/mL (14.0-72.0)
[2018-09-19 17:35] LABS: African American GFR (CKD) 81.1 (60.0-200.0); Albumin 4.4 g/dL (3.80-4.90); Albumin/Globulin Ratio 2.1 (1.60-3.17); Anion Gap 9.4 mmol/L (4.00-12.00); BUN/Creat Ratio 27.78 Ratio (12.00-20.00); Calcium 9.4 mg/dL (8.7-10.3); Carbon Dioxide 26.6 mmol/L (21.6-31.8); Globulin 2.1 g/dL (1.6-3.3); LDL Cholesterol,Calculated 82.6 mg/dL (0.0-131.0); Phosphorus 4.3 mg/dL (2.4-5.1); Potassium 4.2 mmol/L (3.5-5.5); Total Bilirubin 0.4 mg/dL (0.3-1.2); Total Protein 6.5 g/dL (6.2-8.2); VLDL Calculation 23.4 mg/dL (5.00-40.00)
[2018-09-20 13:45] LABS: Vit B1(Thiamine) 79 ug/L (38-122)
[2018-09-20 15:18] LABS: Zinc, Serum 60 ug/dL (60-130)
== END | disposition home or self-care (01) ==
LOC: LABWHC1 11:21
PROVIDERS: ATTEND Surgery Plastic and Reconstructive Surgery
DX: E66.01 Morbid (severe) obesity due to excess calories (principal); E21.1 Secondary hyperparathyroidism, not elsewhere classified; E89.1 Postprocedural hypoinsulinemia; D50.9 Iron deficiency anemia, unspecified; K90.9 Intestinal malabsorption, unspecified; E55.9 Vitamin D deficiency, unspecified; K74.1 Hepatic sclerosis; N19 Unspecified kidney failure; K50.90 Crohn's disease, unspecified, without complications
CPT/HCPCS: 36415; 80053; 80061; 82306; 82525; 82607; 82728; 82746; 83036; 83540; 83550; 83735; 83970; 84100; 84134; 84255; 84425; 84443; 84590; 84630; 85027; 85610; 85730

== ENCOUNTER → 2019-05-21 | Outpatient (CLI) | payer BC ==
[2019-05-21 13:22] VITALS: BP 113/72; PULSE 82; TEMP 97.7; BMI 34.7
--- NOTE | 2019-05-21 14:09 | P.PN ---
Subjective Progress Note Date: 05/21/19 DATE OF SERVICE: 05/21/2019 CHIEF COMPLAINT: Status post gastric bypass HISTORY OF PRESENT ILLNESS: Natali Garcia is a 59-year-old female status post conversion from adjustable gastric band to gastric bypass 03/26/2017. She is 2 years out. She comes in with hammer toe repair of the right foot less than 1 month ago. She has lost 4 pounds. She denies any significant gastroesophageal reflux disease. She is taking Motrin after surgery for pain. She denies any bowel problems. She denies any abdominal pain. She denies hair loss. Her protein intake is 70 to 80 grams daily. She is taking multivitamin without iron. She has history of chronic iron deficiency anemia. At a height of 5 foot 7.25 inches, her ideal body weight is 158 pounds. Today she comes in 222 pounds from 227 pounds, 8 months ago. She has lost 5 pounds in 8 months. Her initial weight was 279 pounds. Her BMI was 43.5. Today her BMI is 34.7. Percent excess weight loss is 47%. Her lifetime weight loss is 56 pounds. PHYSICAL EXAM: VITAL SIGNS: 5 feet 7.25, 222 pounds. Body mass index 34.7 Vital Signs Temp 97.7 F 05/21/19 13:21 Pulse 82 05/21/19 13:21 Resp BP 113/72 05/21/19 13:21 Pulse Ox GENERAL: Well-developed female in no acute distress. HEENT: No scleral icterus. Extraocular movements grossly intact. Moist buccal mucosa. NECK: Supple without lymphadenopathy. CHEST: Nonlabored respirations. Equal bilateral excursions. CARDIOVASCULAR: Regular rate and rhythm. ABDOMEN: Obese, soft, nontender, nondistended. MUSCULOSKELETAL: No clubbing, cyanosis, or edema. NEURO: No focal or lateralizing signs. Cranial nerves II to XII grossly intact. PSYCH: Appropriate affect. Alert and oriented to person, place, and time. SKIN: Good skin turgor. Well perfused. ASSESSMENT: 1. Morbid obesity due to excess calories. 2. Body mass index of 43.3, initial to 34.7 3. Obstructive sleep apnea. 4. Hypertensive heart disease. 5. Gastroesophageal reflux disease. 6. Kidney stone PLAN: 1. Recommend bariatric labs 2. Recommend MVI with iron. Objective - Vital Signs Vital signs: Vital Signs Temp 97.7 F 05/21/19 13:21 Pulse 82 05/21/19 13:21 Resp BP 113/72 05/21/19 13:21 Pulse Ox Intake & Output 05/20/19 05/21/19 05/21/19 18:59 06:59 18:59 Weight 101.151 kg
== END | disposition home or self-care (01) ==
LOC: BARWHC3 13:03
PROVIDERS: ATTEND Surgery Plastic and Reconstructive Surgery
DX: E66.01 Morbid (severe) obesity due to excess calories (principal); Z68.34 Body mass index [BMI] 34.0-34.9, adult; G47.33 Obstructive sleep apnea (adult) (pediatric); I11.9 Hypertensive heart disease without heart failure; K21.9 Gastro-esophageal reflux disease without esophagitis; N20.0 Calculus of kidney; Z98.84 Bariatric surgery status
CPT/HCPCS: 97803; 99211

== ENCOUNTER → 2019-05-23 | Outpatient (CLI) | payer BC ==
--- NOTE | 2019-05-23 12:42 | MM ---
Reason for exam: follow-up at short interval from prior study. Last mammogram was performed 9 months ago. History: Patient is postmenopausal and history of other cancer. Physical Findings: Nurse Summary: 1.5cm nodule in the left breast at 1 o'clock (nurse mj). MG 3D Diag Mammo W/Cad LT CC and MLO view(s) were taken of the left breast. Prior study comparison: August 15, 2018, left breast MG 3d work up w/cad LT. August 06, 2018, bilateral MG screening mammo w CAD. There are scattered fibroglandular densities. Benign appearing calcifications in the left breast. These results were verbally communicated with the patient and result sheet given to the patient on 05/23/19. ASSESSMENT: Incomplete: need additional imaging evaluation, BI-RAD 0 RECOMMENDATION: Ultrasound of the left breast. (palpable)
--- NOTE | 2019-05-23 12:44 | USB ---
Reason for exam: additional evaluation requested from abnormal screening. History: Patient is postmenopausal and history of other cancer. US Breast Limited LT Left limited breast ultrasound including focal area of concern, retroareolar and axilla demonstrates a 0.3 x 0.4 x 0.2cm oval, complex, cystic lesion at 12 o'clock, prior 0.4 x 0.3 x 0.5cm, smaller involuting cyst. These results were verbally communicated with the patient and result sheet given to the patient on 05/23/19. ASSESSMENT: Benign, BI-RAD 2 RECOMMENDATION: Return to routine screening mammogram schedule for both breasts. Back on schedule for July 2019.
== END | disposition home or self-care (01) ==
LOC: RADMAMWWP 10:59
PROVIDERS: ATTEND Family Medicine
DX: R92.8 Other abnormal and inconclusive findings on diagnostic imaging of breast (principal)
CPT/HCPCS: 77061; 77065

== ENCOUNTER → 2019-05-23 | Outpatient (CLI) | payer BC ==
[2019-05-23 14:14] LABS: HCT 45.9 % (34.0-46.0); HGB 14.7 gm/dL (11.4-16.0); MCH 30.3 pg (25.0-35.0); MCHC 32.1 g/dL (31.0-37.0); MCV 94.3 fL (80.0-100.0); Mean Platelet Volume 7.2; Platelet Count 305 k/uL (150-450); RBC 4.87 m/uL (3.80-5.40); RDW 12.6 % (11.5-15.5); WBC 9.4 k/uL (3.8-10.6)
[2019-05-23 14:23] LABS: Partial Thromboplastin Time 23.5 sec (22.0-30.0)
[2019-05-23 20:10] LABS: % Iron Saturation 34.45 (12.00-45.00); African American GFR (CKD) 80.5 (60.0-200.0); Albumin 4.6 g/dL (3.80-4.90); Albumin/Globulin Ratio 2.09 (1.60-3.17); BUN/Creat Ratio 32.22 Ratio (12.00-20.00); Chol/HDL Ratio 2.76; Globulin 2.2 g/dL (1.6-3.3); LDL Cholesterol,Calculated 93.6 mg/dL (0.0-131.0); Magnesium 2.2 mg/dL (1.5-2.4); Non-African American GFR(CKD) 69.5 (60.0-200.0); Phosphorus 4.3 mg/dL (2.4-5.1); Potassium 4.5 mmol/L (3.5-5.5); Total Bilirubin 0.4 mg/dL (0.3-1.2); Total Protein 6.8 g/dL (6.2-8.2); VLDL Calculation 26.4 mg/dL (5.00-40.00)
[2019-05-23 20:20] LABS: Ferritin 87.6 ng/mL (10.0-291.0)
[2019-05-23 20:26] LABS: Folate, Serum 12.3 ng/mL
[2019-05-23 21:58] LABS: Hemoglobin A1C 5.9 % (4.0-6.0)
== END | disposition home or self-care (01) ==
LOC: LABWHC1 13:00
PROVIDERS: ATTEND Surgery Plastic and Reconstructive Surgery
DX: E21.1 Secondary hyperparathyroidism, not elsewhere classified (principal); E89.1 Postprocedural hypoinsulinemia; D50.9 Iron deficiency anemia, unspecified; K90.9 Intestinal malabsorption, unspecified; E44.0 Moderate protein-calorie malnutrition; E55.9 Vitamin D deficiency, unspecified; K74.1 Hepatic sclerosis; N19 Unspecified kidney failure; K50.90 Crohn's disease, unspecified, without complications; E66.01 Morbid (severe) obesity due to excess calories
CPT/HCPCS: 36415; 80053; 80061; 82306; 82525; 82607; 82728; 82746; 83036; 83540; 83550; 83735; 83970; 84100; 84134; 84255; 84425; 84443; 84590; 84630; 85027; 85610; 85730

== ENCOUNTER → 2019-12-22 | Outpatient (CLI) | payer BC ==
[2019-12-22 13:34] LABS: HCT 43.9 % (34.0-46.0); HGB 13.7 gm/dL (11.4-16.0); MCH 28.7 pg (25.0-35.0); MCHC 31.2 g/dL (31.0-37.0); MCV 92.1 fL (80.0-100.0); Mean Platelet Volume 7.1; Platelet Count 260 k/uL (150-450); RBC 4.76 m/uL (3.80-5.40); RDW 13.3 % (11.5-15.5); WBC 7.9 k/uL (3.8-10.6)
[2019-12-22 19:20] LABS: INR 0.97 (0.90-1.11); Prothrombin Time 10.4 sec (9.9-11.9)
[2019-12-22 21:21] LABS: Hemoglobin A1C 5.8 % (4.0-6.0)
[2019-12-22 22:07] LABS: Ferritin 45.8 ng/mL (10.0-291.0)
[2019-12-22 22:11] LABS: Folate, Serum 6.2 ng/mL
[2019-12-22 22:27] LABS: % Iron Saturation 31.93 (12.00-45.00); ALT 18 U/L (8-44); AST 21 U/L (13-35); African American GFR (CKD) 80.5 (60.0-200.0); Albumin/Globulin Ratio 2.15 (1.60-3.17); Alkaline Phosphatase 138 U/L (41-126); BUN/Creat Ratio 21.11 Ratio (12.00-20.00); Calcium 9.6 mg/dL (8.7-10.3); Chloride 107 mmol/L (96-109); Chol/HDL Ratio 2.71; Cholesterol 168 mg/dL (0-200); Glucose 72 mg/dL (70-110); Iron 106 ug/dL (50-170); LDL Cholesterol,Calculated 82.2 mg/dL (0.0-131.0); Magnesium 1.8 mg/dL (1.5-2.4); Non-African American GFR(CKD) 69.5 (60.0-200.0); Phosphorus 3.2 mg/dL (2.4-5.1); Potassium 4.1 mmol/L (3.5-5.5); Sodium 142 mmol/L (135-145); Total Bilirubin 0.5 mg/dL (0.3-1.2); Total Iron Binding Capacity 332 ug/dL (228-460); Total Protein 6.3 g/dL (6.2-8.2)
[2019-12-22 22:55] LABS: Vitamin B12 >4000.0 pg/mL (211-911)
[2019-12-23 14:34] LABS: Zinc, Serum 86 ug/dL (60-130)
[2019-12-24 06:11] LABS: Vitamin A 52 ug/dL (38-106)
[2019-12-24 06:56] LABS: Vit B1(Thiamine) 70 ug/L (38-122)
== END | disposition home or self-care (01) ==
LOC: LABWHC1 12:44
PROVIDERS: ATTEND Surgery Plastic and Reconstructive Surgery
DX: E66.01 Morbid (severe) obesity due to excess calories (principal); E89.1 Postprocedural hypoinsulinemia; D50.8 Other iron deficiency anemias; K90.89 Other intestinal malabsorption; E44.0 Moderate protein-calorie malnutrition; E55.9 Vitamin D deficiency, unspecified; K74.1 Hepatic sclerosis; N19 Unspecified kidney failure; K50.90 Crohn's disease, unspecified, without complications
CPT/HCPCS: 36415; 80053; 80061; 82306; 82525; 82607; 82728; 82746; 83036; 83540; 83550; 83735; 83970; 84100; 84134; 84255; 84425; 84443; 84590; 84630; 85027; 85610; 85730

== ENCOUNTER → 2020-10-18 | Outpatient (CLI) | payer OTHER ==
[2020-10-18 19:20] LABS: % Iron Saturation 38.04 (12.00-45.00); ALT 17 U/L (8-44); AST 20 U/L (13-35); African American GFR (CKD) 70.4 (60.0-200.0); Albumin/Globulin Ratio 1.87 (1.60-3.17); Alkaline Phosphatase 125 U/L (41-126); Calcium 9.7 mg/dL (8.7-10.3); Carbon Dioxide 31.5 mmol/L (21.6-31.8); Chloride 104 mmol/L (96-109); Chol/HDL Ratio 2.68; Cholesterol 174 mg/dL (0-200); Globulin 2.3 g/dL (1.6-3.3); Glucose 98 mg/dL (70-110); Iron 140 ug/dL (50-170); LDL Cholesterol,Calculated 93.6 mg/dL (0.0-131.0); Non-African American GFR(CKD) 60.8 (60.0-200.0); Potassium 4.4 mmol/L (3.5-5.5); Sodium 142 mmol/L (135-145); Total Bilirubin 0.7 mg/dL (0.2-1.2); Total Iron Binding Capacity 368 ug/dL (228-460); Total Protein 6.6 g/dL (6.2-8.2)
[2020-10-18 19:28] LABS: Ferritin 21.1 ng/mL (10.0-291.0)
[2020-10-18 19:36] LABS: HCT 44.4 % (37.2-46.3); HGB 13.9 g/dL (12.0-15.0); MCHC 31.3 g/dL (32.0-37.0); MCV 92.7 fL (80.0-97.0); Mean Platelet Volume 10.3 fL (9.5-12.2); Platelet Count 260 X 10*3/uL (140-440); RBC 4.79 X 10*6/uL (4.10-5.20); RDW 13.8 % (11.5-14.5); WBC 6.35 X 10*3/uL (4.50-10.00)
[2020-10-18 19:54] LABS: Vitamin B12 >4000.0 pg/mL (211-911)
[2020-10-18 21:26] LABS: Hemoglobin A1C 5.6 % (4.0-6.0)
== END | disposition home or self-care (01) ==
LOC: LABWHC1 10:24
PROVIDERS: ATTEND Family Medicine
DX: Z98.84 Bariatric surgery status (principal)
CPT/HCPCS: 36415; 80053; 80061; 82306; 82607; 82728; 83036; 83540; 83550; 83970; 85027

== ENCOUNTER → 2021-02-24 | Outpatient (CLI) | payer OTHER ==
--- NOTE | 2021-02-24 13:51 | MM ---
Reason for exam: screening (asymptomatic). Last mammogram was performed 1 year and 9 months ago. History: Patient is postmenopausal and history of other cancer. Physical Findings: A clinical breast exam by your physician is recommended on an annual basis and results should be correlated with mammographic findings. MG 3D Screening Mammo W/Cad Bilateral CC and MLO view(s) were taken. Prior study comparison: May 23, 2019, left breast MG 3d diag mammo w/cad LT. August 15, 2018, left breast MG 3d work up w/cad LT. August 06, 2018, bilateral MG screening mammo w CAD. August 02, 2017, bilateral MG screening mammo w CAD. The breast tissue is heterogeneously dense. This may lower the sensitivity of mammography. There are benign appearing round calcifications bilaterally. There is no discrete abnormality. ASSESSMENT: Benign, BI-RAD 2 RECOMMENDATION: Routine screening mammogram of both breasts in 1 year.
== END | disposition home or self-care (01) ==
LOC: RADMAMWWP 08:28
PROVIDERS: ATTEND Family Medicine
DX: Z12.31 Encounter for screening mammogram for malignant neoplasm of breast (principal); Z78.0 Asymptomatic menopausal state
CPT/HCPCS: 77063; 77067

== ENCOUNTER 2021-08-03 07:11 | Day surgery (SDC) | payer OTHER ==
[2021-08-02 08:31] VITALS: BMI 28.9
[~2021-08-03 07:11] MED LIST changes: -LACTATED RINGERS 1,000 ML IV SCH; +LIDOCAINE 1% (10MG/ML) FOR IV START INTRADERMA PRN; -LIDOCAINE 1% 20 ML VIAL (10MG/ML) FOR IV START INTRADERMA PRN
[2021-08-03 08:00] VITALS: TEMP 98.1
--- NOTE | 2021-08-03 08:03 | P.GSHP ---
History of Present Illness H&P Date: 08/03/21 CHIEF COMPLAINT: Colon screen HISTORY OF PRESENT ILLNESS: The patient is a 61-year-old female who presents for colon screen. Lower endoscopy was offered for further evaluation and management. PAST MEDICAL HISTORY: Please see list. PAST SURGICAL HISTORY: Please see list. MEDICATIONS: Please see list. ALLERGIES: Please see list. SOCIAL HISTORY: No illicit drug use FAMILY HISTORY: No reports of Crohn disease or ulcerative colitis. REVIEW OF ORGAN SYSTEMS: CONSTITUTIONAL: No reports of fevers or chills. PHYSICAL EXAM: VITAL SIGNS: Stable GENERAL: Well-developed pleasant in no acute distress. HEENT: No scleral icterus. Extraocular movements grossly intact. Moist buccal mucosa. NECK: Supple without lymphadenopathy. CHEST: Unlabored respirations. Equal bilateral excursions. CARDIOVASCULAR: Regular rate and rhythm. Distal 2+ pulses. ABDOMEN: Soft, nontender, nondistended. MUSCULOSKELETAL: No clubbing, cyanosis, or edema. ASSESSMENT: 1. Colon screen. PLAN: 1. Recommend proceeding with a lower endoscopy Past Medical History Past Medical History: Cancer, GERD/Reflux, Osteoarthritis (OA), Thyroid Disorder Additional Past Medical History / Comment(s): HX MELANOMA ON FOREHEAD, VARICOSE VEINS. History of Any Multi-Drug Resistant Organisms: None Reported Past Surgical History: Bariatric Surgery, Section, Cholecystectomy, Joint Replacement, Orthopedic Surgery Additional Past Surgical History / Comment(s): BILATERAL knee replacement, Lap band (REMOVED June 2014); melanoma removed from forehead, arthroscopy rt knee, gastric bypass March, right foot hammer toe surgery Past Anesthesia/Blood Transfusion Reactions: No Reported Reaction Smoking Status: Former smoker - Past Family History Father Family Medical History: Cancer Additional Family Medical History / Comment(s): lymphoma, kidney cancer, lung Sister(s) Family Medical History: Cancer Additional Family Medical History / Comment(s): skin cancer Medications and Allergies Home Medications Medication Instructions Recorded Confirmed Type Multivitamins, Thera [Multivitamin 1 tab PO DAILY 05/04/17 08/02/21 History (formulary)] Citalopram Hydrobromide 40 mg PO DAILY 05/07/17 08/02/21 History [Citalopram HBr] buPROPion [Wellbutrin] 75 mg PO DAILY 07/11/17 08/02/21 History Pantoprazole Sodium [Protonix] 40 mg PO DAILY 08/07/19 08/02/21 History traZODone HCL 100 mg PO HS 08/02/21 08/02/21 History Cholecalciferol (Vitamin D3) 125 mcg PO DAILY 08/03/21 08/03/21 History [Vitamin D3 (125 MCG = 5,000 IU)] Allergies Allergy/AdvReac Type Severity Reaction Status Date / Time metoclopramide [From Reglan] AdvReac suicidal Verified 08/03/21 07:54 thoughts Surgical - Exam Vital Signs Temp Pulse Resp BP Pulse Ox 98.1 F 62 16 123/70 99 08/03/21 07:59 08/03/21 07:59 08/03/21 07:59 08/03/21 07:59 08/03/21 07:59
[2021-08-03] MEDS: LACTATED RINGERS 1,000 ML IV SCH ×2 (08:13→08:25)
[2021-08-03] MEDS ORDERED: PROPOFOL 10 MG/ML 20 ML VIAL IV ONE (08:26)
--- NOTE | 2021-08-03 08:47 | P.PCN ---
Date of Procedure: 08/03/21 Description of Procedure: PREOPERATIVE DIAGNOSIS: Colonoscopy screening. History of polyp POSTOPERATIVE DIAGNOSIS: Colonoscopy screening. External hemorrhoids. Tubular adenoma, sigmoid colon OPERATION: Colonoscopy to the sigmoid colon. SURGEON: Lianne Seals MD. ANESTHESIA: MAC. INDICATIONS: The patient is a 61-year-old female who presents for colonoscopy screening. Her last colonoscopy was more than 5 years ago. Benefits and risks were described and informed consent was obtained. DESCRIPTION OF PROCEDURE: The patient had undergone Sutab prep. She had been brought into the operating room and laid in the left lateral decubitus position. After adequate intravenous sedation, the rectum was examined with 2% lidocaine jelly. External hemorrhoids were encountered. The rectal tone was within normal limits. No lesions were palpated in the rectal vault. An Olympus colonoscope was advanced along the rectum to a very tortuous sigmoid colon. The prep was extremely poor with semisolid stool completely covering the mucosa. The scope was passed to 30 cm from the anal verge. Tubular adenoma polyp was identified and removed identified. Colonoscopy discontinued due to extremely poor prep. The colon was desufflated. The patient had tolerated the procedure well. Withdrawal time was over 6 minutes. FINDINGS: Aronchik preparation quality scale 4+ (1-5) Removal of one polyp: - Snare polypectomy at 30 cm from the anal verge, 8 mm adenoma, sigmoid colon External prolapsed hemorrhoids. Scope advanced to sigmoid colon at 30 cm. RECOMMENDATIONS: Extremely poor prep. Repeat colonoscopy in 3 months, October 2021 Plan - Discharge Summary New Discharge Prescriptions: Continue Multivitamins, Thera [Multivitamin (formulary)] 1 tab PO DAILY Citalopram Hydrobromide [Citalopram HBr] 40 mg PO DAILY buPROPion [Wellbutrin] 75 mg PO DAILY Pantoprazole Sodium [Protonix] 40 mg PO DAILY traZODone HCL 100 mg PO HS Cholecalciferol (Vitamin D3) [Vitamin D3 (125 MCG = 5,000 IU)] 125 mcg PO DAILY Discharge Medication List Multivitamins, Thera [Multivitamin (formulary)] 1 tab PO DAILY 05/04/17 [History] Citalopram Hydrobromide [Citalopram HBr] 40 mg PO DAILY 05/07/17 [History] buPROPion [Wellbutrin] 75 mg PO DAILY 07/11/17 [History] Pantoprazole Sodium [Protonix] 40 mg PO DAILY 08/07/19 [History] traZODone HCL 100 mg PO HS 08/02/21 [History] Cholecalciferol (Vitamin D3) [Vitamin D3 (125 MCG = 5,000 IU)] 125 mcg PO DAILY 08/03/21 [History] Follow up Appointment(s)/Referral(s): Lianne Seals MD [STAFF PHYSICIAN] - 08/23/21 Patient Instructions/Handouts: Colorectal Polyps (GEN), Constipation (DC), High Fiber Diet (DC) Activity/Diet/Wound Care/Special Instructions: Repeat colonoscopy in 3 months, October 2021 Discharge Disposition: HOME SELF-CARE
[2021-08-03 09:10] VITALS: BP 117/72; PULSE 56; RESP 17
== END 2021-08-03 09:45 | disposition home or self-care (01) ==
LOC: ORWHC2ENDO 07:11
PROVIDERS: ATTEND Surgery Plastic and Reconstructive Surgery
DX: Z12.11 Encounter for screening for malignant neoplasm of colon (principal); D12.5 Benign neoplasm of sigmoid colon; K64.4 Residual hemorrhoidal skin tags; K21.9 Gastro-esophageal reflux disease without esophagitis; K59.00 Constipation, unspecified; M19.90 Unspecified osteoarthritis, unspecified site; Z79.899 Other long term (current) drug therapy; Z86.010 Personal history of colon polyps; Z85.820 Personal history of malignant melanoma of skin; Z87.891 Personal history of nicotine dependence; Z88.8 Allergy status to other drugs, medicaments and biological substances; Z96.653 Presence of artificial knee joint, bilateral; Z98.84 Bariatric surgery status
CPT/HCPCS: 45338; 88305; J2704

== ENCOUNTER → 2021-08-30 | Outpatient (CLI) | payer OTHER ==
--- NOTE | 2021-08-30 22:07 | CT ---
EXAMINATION TYPE: CT abdomen pelvis w con DATE OF EXAM: 08/30/2021 COMPARISON: CT dated 07/12/2018 HISTORY: failed colonoscopy. Diverticulitis. CT DLP: 1109.7 mGycm Automated exposure control for dose reduction was used. TECHNIQUE: Helical acquisition of images was performed from the lung bases through the pelvis. CONTRAST: Performed with Oral Contrast and with IV Contrast, patient injected with 100 mL of Isovue 300. FINDINGS: LUNG BASES: No significant abnormality is appreciated. LIVER/GB: 19 mm segment 8 subcapsular hepatic hypodensity, incompletely characterized by this CT scan and could represent a hepatic hemangioma. Recommend further targeted ultrasound assessment. Previous cholecystectomy. PANCREAS: No significant abnormality is seen. SPLEEN: No significant abnormality is seen. ADRENALS: No significant abnormality is seen. KIDNEYS: No significant abnormality is seen. FREE AIR: No free air is visualized. RETROPERITONEAL ADENOPATHY: None visualized REPRODUCTIVE ORGANS: No gross uterine or adnexal mass. Suspected vaginal pessary. URINARY BLADDER: No significant abnormality is seen. PELVIC ADENOPATHY: No pathologically enlarged pelvic lymph nodes. OSSEOUS STRUCTURES: Degenerative changes of the lower thoracic and lumbar spine. No gross aggressive bone lesion. BOWEL: Previous gastric surgery and gastrojejunostomy. No evidence for bowel obstruction. Significan t fecal loading of the rectum and colon suggestive of constipation. Elongated redundant sigmoid colon . No gross colonic mass however small lesion can't be excluded. Normal appendix. OTHER: Arterial atherosclerotic calcifications. No sizable ascites. IMPRESSION: Marked fecal loading of the colon suggestive of severe constipation. The patient may benefit from lax atives or enema. No gross colonic mass however a small lesion can't be excluded. Segment 8 subcapsular hepatic lesion, possibly representing a hemangioma. Recommend further targeted ultrasound assessment.
== END | disposition home or self-care (01) ==
LOC: RADCTMAIN 16:24
PROVIDERS: ATTEND Surgery Plastic and Reconstructive Surgery
DX: K76.9 Liver disease, unspecified (principal)
CPT/HCPCS: 74177; Q9967

== ENCOUNTER → 2021-12-06 | Outpatient (CLI) | payer OTHER ==
[2021-12-06 11:55] LABS: Partial Thromboplastin Time 24.4 sec (22.0-30.0); Prothrombin Time 10.6 sec (9.0-12.0)
[2021-12-06 19:22] LABS: Prealbumin 21.4 mg/dL (18.0-42.0); VLDL Calculation 16.58 mg/dL (5.00-40.00)
[2021-12-06 19:50] LABS: HCT 40.3 % (37.2-46.3); HGB 12.7 g/dL (12.0-15.0); MCH 29.6 pg (27.0-32.0); MCHC 31.5 g/dL (32.0-37.0); MCV 93.9 fL (80.0-97.0); Mean Platelet Volume 10.5 fL (9.5-12.2); NRBC Per 100 WBC 0 /100 WBCS (0.0-0.0); Platelet Count 222 X 10*3/uL (140-440); RBC 4.29 X 10*6/uL (4.10-5.20); RDW 13.7 % (11.5-14.5)
[2021-12-06 19:56] LABS: % Iron Saturation 34.14 (12.00-45.00); ALT 20 U/L (8-44); AST 23 U/L (13-35); African American GFR (CKD) 82.2 (60.0-200.0); Albumin 4.2 g/dL (3.8-4.9); Albumin/Globulin Ratio 1.94 (1.60-3.17); Alkaline Phosphatase 116 U/L (41-126); BUN/Creat Ratio 26.97 Ratio (12.00-20.00); Blood Urea Nitrogen 23.6 mg/dL (9.0-27.0); Calcium 9.8 mg/dL (8.7-10.3); Carbon Dioxide 25.6 mmol/L (20.0-27.5); Chloride 105 mmol/L (96-109); Ferritin 28.3 ng/mL (10.0-291.0); Globulin 2.2 g/dL (1.6-3.3); Glucose 96 mg/dL (70-110); Iron 141 ug/dL (50-170); Magnesium 2.1 mg/dL (1.5-2.4); Non-African American GFR(CKD) 70.9 (60.0-200.0); Phosphorus 4.1 mg/dL (2.4-5.1); Potassium 3.9 mmol/L (3.5-5.5); Sodium 140 mmol/L (135-145); Total Iron Binding Capacity 413 ug/dL (228-460); Total Protein 6.4 g/dL (6.2-8.2)
[2021-12-07 12:35] LABS: Zinc, Serum 65 ug/dL (60-130)
[2021-12-08 06:43] LABS: Vitamin A 55 ug/dL (38-106)
== END | disposition home or self-care (01) ==
LOC: LABWHC1 11:04
PROVIDERS: ATTEND Surgery Plastic and Reconstructive Surgery
DX: E66.01 Morbid (severe) obesity due to excess calories (principal); E89.1 Postprocedural hypoinsulinemia; D50.8 Other iron deficiency anemias; E21.1 Secondary hyperparathyroidism, not elsewhere classified; E44.0 Moderate protein-calorie malnutrition; E55.9 Vitamin D deficiency, unspecified; K74.1 Hepatic sclerosis; N19 Unspecified kidney failure; K50.90 Crohn's disease, unspecified, without complications
CPT/HCPCS: 36415; 80053; 80061; 82306; 82525; 82607; 82728; 82746; 83036; 83540; 83550; 83735; 83970; 84100; 84134; 84255; 84425; 84443; 84590; 84630; 85027; 85610; 85730

== ENCOUNTER → 2022-02-22 | Day surgery (SDC) | payer OTHER ==
[2022-02-17 10:30] VITALS: BMI 27.8
[~2022-02-22] MED LIST changes: +LACTATED RINGERS 1,000 ML IV SCH; +PROPOFOL 10 MG/ML 20 ML VIAL IV ONE
--- NOTE | 2022-02-22 10:29 | P.GSHP ---
History of Present Illness H&P Date: 02/22/22 CHIEF COMPLAINT: Colon screen HISTORY OF PRESENT ILLNESS: The patient is a 62-year-old female who presents for colon screen. Lower endoscopy was offered for further evaluation and management. PAST MEDICAL HISTORY: Please see list. PAST SURGICAL HISTORY: Please see list. MEDICATIONS: Please see list. ALLERGIES: Please see list. SOCIAL HISTORY: No illicit drug use FAMILY HISTORY: No reports of Crohn disease or ulcerative colitis. REVIEW OF ORGAN SYSTEMS: CONSTITUTIONAL: No reports of fevers or chills. PHYSICAL EXAM: VITAL SIGNS: Stable GENERAL: Well-developed pleasant in no acute distress. HEENT: No scleral icterus. Extraocular movements grossly intact. Moist buccal mucosa. NECK: Supple without lymphadenopathy. CHEST: Unlabored respirations. Equal bilateral excursions. CARDIOVASCULAR: Regular rate and rhythm. Distal 2+ pulses. ABDOMEN: Soft, nontender, nondistended. MUSCULOSKELETAL: No clubbing, cyanosis, or edema. ASSESSMENT: 1. Colon screen. PLAN: 1. Recommend proceeding with a lower endoscopy Past Medical History Past Medical History: Cancer, GERD/Reflux, Osteoarthritis (OA), Thyroid Disorder Additional Past Medical History / Comment(s): HX MELANOMA ON FOREHEAD, VARICOSE VEINS. History of Any Multi-Drug Resistant Organisms: None Reported Past Surgical History: Bariatric Surgery, Section, Cholecystectomy, Joint Replacement, Orthopedic Surgery Additional Past Surgical History / Comment(s): BILATERAL knee replacement, Lap band (REMOVED June 2014); melanoma removed from forehead, arthroscopy rt knee, gastric bypass March, right foot hammer toe surgery. UNSUCCESSFUL COLONOSCOPY ATTEMPT 08/03/21 Past Anesthesia/Blood Transfusion Reactions: No Reported Reaction Smoking Status: Former smoker - Past Family History Father Family Medical History: Cancer Additional Family Medical History / Comment(s): lymphoma, kidney cancer, lung Sister(s) Family Medical History: Cancer Additional Family Medical History / Comment(s): skin cancer Medications and Allergies Home Medications Medication Instructions Recorded Confirmed Type Multivitamins, Thera [Multivitamin 1 tab PO DAILY 05/04/17 02/17/22 History (formulary)] Citalopram Hydrobromide 40 mg PO DAILY 05/07/17 02/17/22 History [Citalopram HBr] buPROPion [Wellbutrin] 75 mg PO DAILY 07/11/17 02/17/22 History Pantoprazole Sodium [Protonix] 40 mg PO DAILY 08/07/19 02/17/22 History traZODone HCL 100 mg PO HS 08/02/21 02/17/22 History Cholecalciferol (Vitamin D3) 125 mcg PO DAILY 08/03/21 02/17/22 History [Vitamin D3 (125 MCG = 5,000 IU)] Allergies Allergy/AdvReac Type Severity Reaction Status Date / Time metoclopramide [From Reglan] AdvReac suicidal Verified 02/17/22 10:08 thoughts
[2022-02-22 10:58] VITALS: TEMP 97.9
[2022-02-22 13:06] VITALS: BP 121/62; PULSE 65; RESP 18
--- NOTE | 2022-03-01 10:33 | P.PCN ---
Date of Procedure: 02/22/22 Description of Procedure: PREOPERATIVE DIAGNOSIS: Irritable bowel with constipation Personal history of colon polyps POSTOPERATIVE DIAGNOSIS: Tubular adenoma sigmoid colon Tubular adenoma transverse colon Rectal adenoma Internal hemorrhoids, grade 3 OPERATION: Colonoscopy to the ileocecal valve and appendiceal orifice, cecum Colonoscopy with cold forceps biopsy SURGEON: Lianne Seals MD. ANESTHESIA: MAC. INDICATIONS: The patient is an 62-year-old female who presents personal history of colon polyps and irritable bowel with constipation. 3Benefits and risks were described and informed consent was obtained. DESCRIPTION OF PROCEDURE: The patient had undergone Sutab prep. The patient had been brought into the operating room and laid in the left lateral decubitus position. After adequate intravenous sedation, the rectum was examined with 2% lidocaine jelly. External hemorrhoids were encountered. The rectal tone was within normal limits. No lesions were palpated in the rectal vault. An Olympus colonoscope was advanced until the cecum, ileocecal valve and appendiceal orifice were clearly viewed. The prep was fair. No sigmoid diverticulosis was encountered. The sigmoid colon was highly redundant. Colonic polyps were found and removed. No evidence of focal colitis was found. Retroflexion of the scope demonstrated grade 3 internal hemorrhoids without active bleeding or inflammation. The colon was desufflated. The patient had tolerated the procedure well. Withdrawal time was over 6 minutes. FINDINGS: Aronchick preparation quality scale 3 (1-5) Internal hemorrhoids, grade 3 with recent inflammation and bleeding External hemorrhoids, grade 3. No arteriovenous malformations. Sigmoid diverticulosis Removal of 3 polyps: - Cold forceps biopsy of transverse colon, 5 mm tubulovillous adenoma - Cold forceps biopsy sigmoid colon, 4 mm flat villous adenoma - Cold forceps biopsy and rectum 10 cm, 5 tubular adenoma No focal colitis. RECOMMENDATIONS: Given severity of tubular adenomas, recommend repeat colonoscopy 2 years, 2023 Plan - Discharge Summary Discharge Rx Participant: No New Discharge Prescriptions: Continue Multivitamins, Thera [Multivitamin (formulary)] 1 tab PO DAILY Citalopram Hydrobromide [Citalopram HBr] 40 mg PO DAILY buPROPion [Wellbutrin] 75 mg PO DAILY Pantoprazole Sodium [Protonix] 40 mg PO DAILY traZODone HCL 100 mg PO HS Cholecalciferol (Vitamin D3) [Vitamin D3 (125 MCG = 5,000 IU)] 125 mcg PO DAILY Discharge Medication List Multivitamins, Thera [Multivitamin (formulary)] 1 tab PO DAILY 05/04/17 [History] Citalopram Hydrobromide [Citalopram HBr] 40 mg PO DAILY 05/07/17 [History] buPROPion [Wellbutrin] 75 mg PO DAILY 07/11/17 [History] Pantoprazole Sodium [Protonix] 40 mg PO DAILY 08/07/19 [History] traZODone HCL 100 mg PO HS 08/02/21 [History] Cholecalciferol (Vitamin D3) [Vitamin D3 (125 MCG = 5,000 IU)] 125 mcg PO DAILY 08/03/21 [History] Follow up Appointment(s)/Referral(s): Lianne Seals MD [STAFF PHYSICIAN] - As Needed Patient Instructions/Handouts: *Surgery [facility] - (Anesthesia) Endoscopy Discharge Instructions, Colorectal Polyps (GEN), Colonoscopy (DC) Activity/Diet/Wound Care/Special Instructions: Repeat colonoscopy 2 years, 2023 Discharge Disposition: HOME SELF-CARE
== END | disposition home or self-care (01) ==
LOC: ORWHC2ENDO 09:52
PROVIDERS: ATTEND Surgery Plastic and Reconstructive Surgery
DX: D12.3 Benign neoplasm of transverse colon (principal); K62.1 Rectal polyp; K64.4 Residual hemorrhoidal skin tags; K64.2 Third degree hemorrhoids; K21.9 Gastro-esophageal reflux disease without esophagitis; M19.90 Unspecified osteoarthritis, unspecified site; Z88.8 Allergy status to other drugs, medicaments and biological substances; Z85.820 Personal history of malignant melanoma of skin; I83.90 Asymptomatic varicose veins of unspecified lower extremity; E11.9 Type 2 diabetes mellitus without complications; E07.9 Disorder of thyroid, unspecified; Z98.84 Bariatric surgery status; Z98.0 Intestinal bypass and anastomosis status; Z90.49 Acquired absence of other specified parts of digestive tract; Z96.653 Presence of artificial knee joint, bilateral; Z98.890 Other specified postprocedural states; F32.A Depression, unspecified; Z87.891 Personal history of nicotine dependence; Z80.2 Family history of malignant neoplasm of other respiratory and intrathoracic organs; Z80.51 Family history of malignant neoplasm of kidney; Z80.7 Family history of other malignant neoplasms of lymphoid, hematopoietic and related tissues; Z80.8 Family history of malignant neoplasm of other organs or systems; Z79.1 Long term (current) use of non-steroidal anti-inflammatories (NSAID); Z79.02 Long term (current) use of antithrombotics/antiplatelets; Z79.899 Other long term (current) drug therapy
CPT/HCPCS: 88305; 45380; J2704

== ENCOUNTER → 2022-02-26 | Outpatient (CLI) | payer OTHER ==
--- NOTE | 2022-02-27 02:10 | MR ---
EXAMINATION TYPE: MR shoulder RT wo con DATE OF EXAM: 02/26/2022 COMPARISON: None HISTORY: Shoulder pain. Numbness. Multiplanar multi echo imaging of the right shoulder performed with no contrast. There is large defect in the supraspinatus tendon with retraction at the greater tuberosity humerus. There is a shoulder joint effusion and subdeltoid effusion. There is spurring at the AC joint and min imal subacromial impingement. The subscapularis tendon is intact. There is some mild deformity of the anterior glenoid labrum consi stent with a partial tear. The biceps tendon is intact. The infraspinatus tendon is intact. No focal bone destruction. No evidence of a fracture. There is mi ld spurring on the humeral head. There is narrowing of the glenohumeral joint space. IMPRESSION: Large rotator cuff tear with retraction of the supraspinatus tendon. Shoulder joint effusion and subdeltoid effusion. Osteoarthritis at the glenohumeral joint.
== END | disposition home or self-care (01) ==
LOC: RADMRIMAIN 08:00
PROVIDERS: ATTEND Orthopaedic Surgery
DX: M75.111 Incomplete rotator cuff tear or rupture of right shoulder, not specified as traumatic (principal); M19.011 Primary osteoarthritis, right shoulder; M25.411 Effusion, right shoulder

== ENCOUNTER → 2022-08-14 | Outpatient (CLI) | payer OTHER ==
--- NOTE | 2022-08-16 07:19 | MM ---
Reason for Exam: Screening (asymptomatic). Last mammogram was performed 1 year(s) and 6 month(s) ago. Patient History: Menarche at age 11. First Full-Term at age 24. Postmenopausal. Other cancer. Risk Values: Veronica 5 year model risk: 1.7%. NCI Lifetime model risk: 7.4%. Prior Study Comparison: 08/15/2018 Left Diagnostic Mammogram, [facility]. 05/23/2019 Left Diagnostic Mammogram, [facility]. 02/24/2021 Bilateral Screening Mammogram, [facility]. Tissue Density: The breast tissue is heterogeneously dense. This may lower the sensitivity of mammography. Findings: Analyzed By CAD. There is no suspicious group of microcalcifications or new suspicious mass in either breast. Benign-appearing calcifications within both breasts. Overall Assessment: Benign, BI-RAD 2 Management: Screening Mammogram of both breasts in 1 year. A clinical breast exam by your physician is recommended on an annual basis and results should be correlated with mammographic findings. Electronically signed and approved by: Larry Thompson D.O.
== END | disposition home or self-care (01) ==
LOC: RADMAMWWP 13:46
PROVIDERS: ATTEND Family Medicine
DX: Z12.31 Encounter for screening mammogram for malignant neoplasm of breast (principal); Z78.0 Asymptomatic menopausal state
CPT/HCPCS: 77063; 77067

== ENCOUNTER → 2023-01-11 | Outpatient (CLI) | payer OTHER ==
[2023-01-11 16:43] LABS: % Iron Saturation 18.12 (12.00-45.00); ALT 12 U/L (8-44); AST 17 U/L (13-35); Albumin 4.3 d/dL (3.8-4.9); Albumin/Globulin Ratio 2.15 Ratio (1.60-3.17); Alkaline Phosphatase 127 U/L (41-126); BUN/Creat Ratio 25.67 Ratio (12.00-20.00); Blood Urea Nitrogen 23.1 mg/dL (9.0-27.0); Calcium 9.7 mg/dL (8.7-10.3); Carbon Dioxide 27.9 mmol/L (21.6-31.8); Chloride 106 mmol/L (96-109); Chol/HDL Ratio 2.16 Ratio; Ferritin 23.6 ng/mL (10.0-291.0); Glucose 87 mg/dL (70-110); Iron 81 UG/DL (50-170); LDL Cholesterol,Calculated 69.4 mg/dL (0.0-131.0); Potassium 4.5 mmol/L (3.5-5.5); Sodium 143 mmol/L (135-145); Total Bilirubin 0.6 mg/dL (0.3-1.2); Total Iron Binding Capacity 447 UG/DL (228-460); Total Protein 6.3 d/dL (6.2-8.2); VLDL Calculation 11.22 mg/dL (5.00-40.00)
[2023-01-11 17:20] LABS: HCT 38.1 % (37.2-46.3); HGB 11.9 d/dL (12.0-15.0); MCH 27.4 pg (27.0-32.0); MCHC 31.2 d/dL (32.0-37.0); MCV 87.8 FL (80.0-97.0); Mean Platelet Volume 10.2 FL (9.5-12.2); NRBC Per 100 WBC 0 X 10*3/uL (0.00-0.01); Platelet Count 300 X 10*3/uL (140-440); RBC 4.34 X 10*6/uL (4.10-5.20)
== END | disposition home or self-care (01) ==
LOC: LABWHC1 10:47
PROVIDERS: ATTEND Family Medicine
DX: Z00.01 Encounter for general adult medical examination with abnormal findings (principal); Z98.84 Bariatric surgery status
CPT/HCPCS: 36415; 80053; 80061; 82306; 82607; 82728; 83036; 83540; 83550; 83970; 85027

== ENCOUNTER → 2023-03-15 | Outpatient (CLI) | payer OTHER ==
[2023-03-15 17:05] LABS: INR 0.9 (<1.2); Partial Thromboplastin Time 26.9 sec (22.0-30.0); Prothrombin Time 10.4 sec (10.0-12.5)
[2023-03-16 03:07] LABS: Basophils % (A) 1.4 %; Eosinophils % (A) 4.2 %; HCT 33.5 % (37.2-46.3); HGB 10.7 g/dL (12.0-15.0); Lymphocytes # (A) 2.46 X 10*3/uL (0.90-5.00); Lymphocytes % (A) 34.4 %; MCH 27.6 pg (27.0-32.0); MCHC 31.9 g/dL (32.0-37.0); MCV 86.3 FL (80.0-97.0); Mean Platelet Volume 10.2 FL (9.5-12.2); Monocytes # (A) 0.59 X 10*3/uL (0.20-1.00); Monocytes % (A) 8.3 %; NRBC Per 100 WBC 0 X 10*3/uL (0.00-0.01); Neutrophils # (A) 3.68 X 10*3/uL (1.80-7.70); Neutrophils % (A) 51.4 %; Platelet Count 233 X 10*3/uL (140-440); RBC 3.88 X 10*6/uL (4.10-5.20); WBC 7.15 X 10*3/uL (4.50-10.00)
== END | disposition home or self-care (01) ==
LOC: LABPAT 16:21
PROVIDERS: ATTEND Obstetrics & Gynecology
DX: Z01.812 Encounter for preprocedural laboratory examination (principal); N81.11 Cystocele, midline
CPT/HCPCS: 80051; 82947; 85025; 85610; 85730; 87086

== ENCOUNTER → 2023-03-16 | Outpatient (CLI) | payer OTHER ==
[2023-03-16 20:17] LABS: Blood Urea Nitrogen 21.3 mg/dL (9.0-27.0)
== END | disposition home or self-care (01) ==
LOC: LABWHC1 12:54
PROVIDERS: ATTEND Obstetrics & Gynecology
DX: Z01.812 Encounter for preprocedural laboratory examination (principal); N81.11 Cystocele, midline
CPT/HCPCS: 36415; 82565; 84520; 86850; 86900; 86901

== ENCOUNTER 2023-03-20 12:22 | Emergency (ER) | payer OTHER ==
[2023-03-20 12:40] VITALS: TEMP 98.7
--- NOTE | 2023-03-20 12:57 | ED ---
Fall HPI - General Chief Complaint: Fall Stated Complaint: Fall- Head,shoulder and hand pain Time Seen by Provider: 03/20/23 12:51 Source: patient, family, RN notes reviewed Mode of arrival: ambulatory Limitations: no limitations - History of Present Illness Initial Comments: This is a 63-year-old female who presents to the emergency department for a fal l. States that last night she tripped over a curb and fell face first. Denies any loss of consciousness. She is not taking any blood thinners. She is complaining of a headache and swelling over the left eye. Denies any associated nausea. Also complaining of pain to the left shoulder and left knee. She is still able to ambulate, but states that it is painful. Also states that she is having difficulty moving the left arm due to the pain. She is supposed to have a hysterectomy in 6 days, and was told that she cannot take ibuprofen. She tried taking Tylenol for her pain, which was not very effective. MD Complaint: fall - Related Data Home Medications Medication Instructions Recorded Confirmed Multivitamins, Thera [Multivitamin 1 tab PO DAILY 05/04/17 03/19/23 (formulary)] Citalopram Hydrobromide 40 mg PO DAILY 05/07/17 03/19/23 [Citalopram HBr] buPROPion [Wellbutrin] 75 mg PO DAILY 07/11/17 03/19/23 traZODone HCL 100 mg PO HS 08/02/21 03/19/23 Cholecalciferol (Vitamin D3) 125 mcg PO DAILY 08/03/21 03/19/23 [Vitamin D3 (125 MCG = 5,000 IU)] Ibuprofen [Motrin] 600 mg PO Q8HR PRN 03/19/23 03/19/23 Omeprazole Magnesium [PriLOSEC OTC] 20 mg PO DAILY PRN 03/19/23 03/19/23 Previous Rx's Medication Instructions Recorded HYDROcodone/APAP 5-325MG [[employer] 1 tab PO Q6HR PRN 3 Days #12 tab 03/20/23 5-325] Allergies Allergy/AdvReac Type Severity Reaction Status Date / Time metoclopramide [From Reglan] AdvReac suicidal Verified 03/19/23 14:16 thoughts Review of Systems ROS Statement: Those systems with pertinent positive or pertinent negative responses have been documented in the HPI. ROS Other: All systems not noted in ROS Statement are negative. Past Medical History Past Medical History: GERD/Reflux Additional Past Medical History / Comment(s): HX MELANOMA ON FOREHEAD, VARICOSE VEINS. History of Any Multi-Drug Resistant Organisms: None Reported Past Surgical History: Bariatric Surgery, Section, Cholecystectomy, Joint Replacement, Orthopedic Surgery Additional Past Surgical History / Comment(s): BILATERAL knee replacement, Lap band (REMOVED June 2014); melanoma removed from forehead, arthroscopy rt knee, gastric bypass March, right foot hammer toe surgery. UNSUCCESSFUL COLONOSCOPY ATTEMPT 08/03/21 Past Anesthesia/Blood Transfusion Reactions: No Reported Reaction Past Psychological History: Anxiety, Depression Smoking Status: Former smoker - Past Family History Father Family Medical History: Cancer Additional Family Medical History / Comment(s): lymphoma, kidney cancer, lung Sister(s) Family Medical History: Cancer Additional Family Medical History / Comment(s): skin cancer General Exam Limitations: no limitations General appearance: alert, in no apparent distress Head exam: Present: other (Left Periorbital ecchymosis and tenderness) Eye exam: Present: PERRL, EOMI, periorbital swelling, periorbital tenderness Respiratory exam: Present: normal lung sounds bilaterally. Absent: respiratory distress, wheezes, rales, rhonchi, stridor Cardiovascular Exam: Present: regular rate, normal rhythm, normal heart sounds. Absent: systolic murmur, diastolic murmur, rubs, gallop, clicks Extremities exam: Present: other (Tenderness to palpation of the left knee and shoulder. Range of motion limited by pain. No overlying deformities.) Neurological exam: Present: alert, oriented X3, CN II-XII intact Psychiatric exam: Present: normal affect, normal mood Course Vital Signs 03/20/23 12:25 Temperature 98.7 F Pulse Rate 69 Respiratory 16 Rate Blood Pressure 117/71 O2 Sat by Pulse 98 Oximetry Medical Decision Making - Medical Decision Making This is a 63-year-old female who presents to the emergency department for a fall. Was pt. sent in by a medical professional or institution? @ -No Did you speak to anyone other than the patient for history? @ -No Did you review nursing and triage notes? @ -Yes, and I agree, it is accurate with regards to the patient's symptoms. Were old charts reviewed? @ -No Differential Diagnosis? @ -Differential Diagnosis Head Injury: Contusion, hematoma, intracranial hemorrhage, skull fracture, whiplash, concussion, this is not meant to be an all-inclusive list. EKG interpreted by me (3pts min.)? @ -Not obtained X-rays interpreted by me (1pt min.)? @ -X-ray of the left shoulder, left hand, and left knee obtained. My interpretation identifies no acute fractures. CT interpreted by me (1pt min.)? @ -Computed tomography scan of the brain, facial bones, and c-spine obtained. My interpretation identifies no evidence of an acute intracranial hemorrhage, skull fracture, facial fracture, or cervical spine fracture. U/S interpreted by me (1pt. min.)? @ -Not obtained What testing was considered but not performed? (CT, X-rays, U/S, labs)? Why? @ -None What meds were considered but not given? Why? @ -None Did you discuss the management of the patient with other professionals? @ -No Did you reconcile home meds? @ -No Was smoking cessation discussed for >3mins.? @ -No Was critical care preformed (if so, how long)? @ -No Were there social determinants of health that impacted care today? How? (Homelessness, low income, unemployed, alcoholism, drug addiction, transportation, low edu. Level, literacy, decrease access to med. care, care home, rehab)? @ -No Was there de-escalation of care discussed even if they declined? (Discuss DNR or withdrawal of care, Hospice)? @ -No What co-morbidities impacted this encounter? (DM, HTN, Smoking, COPD, CAD, Cancer, CVA, Hep., AIDS, mental health diagnosis, sleep apnea, morbid obesity)? @ -Osteoarthritis Was patient admitted / discharged? @ -Discharged. CT scan of the brain, facial bones, and c-spine obtained. She was found to have a 7mm nodular asymmetric soft tissue prominence within the right sella/pituitary gland. They advised a follow up MRI to evaluate for any underlying pituitary lesion. She was also found to have a left preseptal/periorbital soft tissue contusion. No facial fractures were identified. Patient's extraocular movements were intact and pupils were equal, round, and reactive to light. X-ray of the left knee, left shoulder, and left hand obtained. She was found to have soft tissue swelling without any acute fractures. Given that she cannot have NSAIDs due to an upcoming hysterectomy, she was given [employer] for pain management. Advised she take this sparingly when her pain is the most severe, and to otherwise take Tylenol. Also advised that this may make her drowsy. Patient is also instructed to apply ice to the areas of pain for 10-15 minutes every 2-3 hours for the first 2-3 days followed by heat there afterwards. Undiagnosed new problem with uncertain prognosis? @ -None Drug Therapy requiring intensive monitoring for toxicity (Heparin, Nitro, Insulin, Cardizem)? @ -None Were any procedures done? @ -None Diagnosis/symptom? @ -Fall, periorbital contusion, knee contusion, shoulder contusion Acute, or Chronic, or Acute on Chronic? @ -Acute Uncomplicated (without systemic symptoms) or Complicated (systemic symptoms)? @ -Uncomplicated Side effects of treatment? @ -None Exacerbation, Progression, or Severe Exacerbation] @ -Not applicable Poses a threat to life or bodily function? @ -No Return precautions reviewed in depth, the patient is instructed to return to the emergency department with any new, worsening, or concerning symptoms. Patient verbalized understanding. This case was discussed in detail with the attending ED physician, Dr. Betancur. Presentation, findings, and treatment plan discussed in detail as well. - Radiology Data Radiology results: report reviewed, image reviewed Disposition Clinical Impression: Fall, Periorbital contusion of left eye, Left knee pain, Left shoulder pain Disposition: HOME SELF-CARE Instructions (If sedation given, give patient instructions): Black Eye (ED), Fall Prevention (ED) Additional Instructions: Return to the emergency department with any new, worsening, or concerning symptoms. Take the [employer] sparingly when your pain is the most severe and be aware that this may make you drowsy, otherwise take Tylenol. Apply ice to the painful areas for 10-15 minutes every 2-3 hours for the first 2-3 days, followed by heat thereafterwards. Follow up with your primary care provider for reevaluation and review of your CT results discussing the possible pituitary lesion in the event you need an MRI. Prescriptions: HYDROcodone/APAP 5-325MG [[employer] 5-325] 1 tab PO Q6HR PRN 3 Days #12 tab PRN Reason: Pain Is patient prescribed a controlled substance at d/c from ED?: Yes When asked, does pt state using other controlled substances?: No If prescribed controlled substance>3 days was MAPS reviewed?: Prescribed <3 Days Referrals: Humberto Mabry MD [Primary Care Provider] - 1-2 days Time of Disposition: 14:12
[2023-03-20] MEDS ORDERED: HYDROcodone/APAP 5-325MG 1 EACH TAB PO STA (13:10)
--- NOTE | 2023-03-20 13:23 | XR ---
EXAMINATION TYPE: XR shoulder complete 3 views LT, XR hand complete 3 views LT DATE OF EXAM: 03/20/2023 Comparison: None Clinical History: 63-year-old female with fall and pain, swelling to nose, orbit tender Findings: Shoulder: Moderate degenerative change AC joint with marginal spurring and capsular hypertrophy with joint spac e narrowing. Subacromial space is preserved. No acute fracture, subluxation, dislocation. Left hand: Scattered osteoarthritic change, moderate to severe at the first CMC joint and also moderate scattere d within the DIP joints. Also moderate at the second and third PIP joints. Osteopenia. No acute fract ure, subluxation, dislocation seen. Impression: 1. Left shoulder: Moderate AC joint OA. No acute osseous abnormality seen. 2. Left hand: Scattered osteoarthritic change within the fingers and base of the thumb. No acute osse ous abnormality seen.
--- NOTE | 2023-03-20 13:32 | CT ---
EXAMINATION TYPE: CT brain cspine wo con DATE OF EXAM: 03/20/2023 COMPARISON: None HISTORY: 63-year-old female left eye bruising and nasal swelling after fall and bashed face into ceme nt CT DLP: 1024.5 mGycm Automated exposure control for dose reduction was used. Technique: Examination of the head was done in axial plane without intravenous contrast. Coronal and sagittal reconstructions performed. CT of the cervical spine was obtained in axial plane without intravenous injection of contrast mater ial. Coronal and sagittal reformatted images were obtained from the axial views for evaluation of f ractures, spinal alignment and canal. FINDINGS: Head: There is no evidence of acute intracranial hemorrhage, acute ischemic changes, mass, mass-effect, or extra-axial fluid collection. There is no effacement of cerebral sulci or basal subarachnoid cister ns. There is no hydrocephalus. There is no midline shift. Telles-white matter distinction is preserv ed. Some nodular asymmetric soft tissue prominence within the right sella measuring 7 mm, axial image 21 and coronal image 34. No calvarial fracture. Dense dural calcifications along the falx cerebra. Mastoid air cells well pneumatized. Facial bones reported separately. Cervical spine: No craniocervical junction anomaly, predental space widening, or prevertebral soft tissue swelling. D egenerative change of the C1 dens articulation. Moderate disc/endplate degenerative changes especially C4-C7 levels with disc space narrowing and dis c osteophyte complex formation. Changes result in at least moderate narrowing of the spinal canal that is at C4-C5 and C5-C6. Mild at C6/C7. Degenerative grade 1 retrolisthesis C4-C5 and C5-C6. No acute fracture of the cervical spine. There is variable mild neural foraminal stenosis throughout. More moderate on the right at C4-C5, the left C5-C6. Sagittal and coronal reformatted images confirm above findings. COMBINED IMPRESSION: 1. 7 mm nodular, asymmetric soft tissue prominence within the right sella/pituitary gland. Consider f ollow-up MRI brain/sella to assess for any underlying pituitary lesion. 2. Otherwise, no acute intracranial abnormality seen. 3. Facial bones reported separately. 4. No acute fracture of the cervical spine. Moderate spondylotic changes especially C5-C7 levels. Deg enerative grade 1 retrolisthesis C4-C5 and C5-C6.
--- NOTE | 2023-03-20 13:35 | CT ---
EXAMINATION TYPE: CT facial bones wo con DATE OF EXAM: 03/20/2023 COMPARISON: None HISTORY: 63-year-old female with pain. Left eye bruising and nasal swelling after fall and bashed fac e in to cement TECHNIQUE: Contiguous axial scanning of the facial bones without IV contrast. Coronal and sagittal re constructions performed. CT DLP: 1024.5 mGycm Automated exposure control for dose reduction was used. FINDINGS: Extensive dental amalgam artifact limiting the evaluation. The mandible and TMJs appear intact. Cinematic arches and pterygoid plates appear intact. Leftward nasal septal deviation. No nasal bone fracture is seen. Paranasal sinuses are clear. No acute facial bone fracture identified. There is left periorbital soft tissue swelling. Underlying orbits and globes appear intact. IMPRESSION: LEFT PRESEPTAL/PERIORBITAL SOFT TISSUE CONTUSION. NO UNDERLYING ACUTE FACIAL BONE FRACTURE SEEN.
--- NOTE | 2023-03-20 13:39 | XR ---
EXAMINATION TYPE: XR knee complete LT DATE OF EXAM: 03/20/2023 COMPARISON: None HISTORY: 63-year-old female pain after fall TECHNIQUE: 3 views FINDINGS: No immediate underlying infrapatellar joint effusion. However, the left total knee arthroplasty inclu ding the distal femoral proximal tibial components of the prosthesis appear well seated without perip rosthetic fracture. Alignment grossly anatomic. No acute fracture, subluxation, dislocation seen. IMPRESSION: There may be a small underlying joint effusion. Otherwise, uncomplicated left total knee arthroplasty .
[2023-03-20 15:06] VITALS: BP 123/74; PULSE 64; RESP 18
== END 2023-03-20 14:51 | disposition home or self-care (01) ==
LOC: EC 12:22
DX: S05.12XA Contusion of eyeball and orbital tissues, left eye, initial encounter (principal); M25.562 Pain in left knee; M25.512 Pain in left shoulder; K21.9 Gastro-esophageal reflux disease without esophagitis; F41.9 Anxiety disorder, unspecified; F32.A Depression, unspecified; Z88.8 Allergy status to other drugs, medicaments and biological substances; Z79.899 Other long term (current) drug therapy; Z87.891 Personal history of nicotine dependence; W19.XXXA Unspecified fall, initial encounter
CPT/HCPCS: 70450; 70486; 72125; 99284

== ENCOUNTER 2023-03-26 07:13 | Day surgery (SDC) | payer OTHER ==
[2023-03-19 14:47] VITALS: BMI 29.6
--- NOTE | 2023-03-23 21:44 | HP ---
HISTORY AND PHYSICAL DATE OF SCHEDULED SURGERY: 03/26/2023. HISTORY OF PRESENT ILLNESS: The patient is a __[id number] 3, para 1-1-1-3, who presents to the office with a long-standing history of prolapse for which she has used a ring pessary with support for several years quite effectively. She presents now interested in more definitive surgical repair, having had some issues with discharge with the pessary and has become wary of removing it and washing it daily as well as wearing pads to cover for the discharge. She denies any bleeding or other symptoms and has been menopausal for years. She does not use and has not used hormone replacement therapy. She has no significant incontinence concerns. PAST MEDICAL HISTORY: Significant for some issues with anxiety and depression. She additionally has had some colonic issues. There is a history of melanoma, which has been treated, and she additionally has a diagnosis of osteoporosis. SURGICAL HISTORY: She has undergone a section as well as a cholecystectomy and gastric bypass as well as knee replacements bilaterally. There is no history of any anesthetic concerns. OBSTETRICAL HISTORY: 3, para 1-1-1-3 with 1 term vaginal delivery, 1 miscarriage, and then 1 section for twins. GYNECOLOGIC HISTORY: Unremarkable with no history of any infections to include STDs. FAMILY HISTORY: Noncontributory. SOCIAL HISTORY: The patient is a 6-esxo-qnx-day smoker, but denies any significant alcohol or any other social concerns. CURRENT MEDICATIONS: 1. Celexa 40 mg daily. 2. Lactulose daily. 3. Motrin 600 as needed. 4. Protonix 40 mg daily. 5. Trazodone 50 mg 2 tablets at bedtime. 6. Wellbutrin XL 300 mg daily. ALLERGIES: Reglan causes suicidal ideation. REVIEW OF SYSTEMS: Is confined to history of present illness. PHYSICAL EXAMINATION: VITAL SIGNS: Stable. The patient is afebrile. GENERAL: This is a well-developed, well-nourished white female, in no acute distress. HEART: Has a regular rhythm and rate without murmur. LUNGS: Clear to auscultation bilaterally in all thompson. ABDOMEN: Nondistended, has normoactive bowel sounds, soft, nontender, and without any palpable masses, hepatosplenomegaly, or hernias. EXTREMITIES: Without any cyanosis, clubbing, or significant edema and are nontender to palpation bilaterally. PELVIS: Examination demonstrates normal external genitalia and BUS with normal vaginal mucosa and cervix. There is no cervical motion tenderness. Uterus demonstrates grade 2+ to grade 3 prolapse along with a grade 3 cystocele. Is otherwise mid plane, atrophic in size, mobile, and normal in shape. The adnexa are normal and nontender without mass bilaterally. ASSESSMENT AND PLAN: Symptomatic uterine prolapse with symptomatic cystocele: The patient has requested surgical repair. We will proceed to the operating room for vaginal hysterectomy with anterior colporrhaphy, possible posterior colporrhaphy. The risks and complications of the procedure have been discussed at length including the risks for bleeding, bleeding requiring transfusion, infection, and injury to local structures to specifically include the bowel, bladder, and ureters. She has understood all this and has agreed to proceed. MMODL / IJN: [id number] / MTDD
[2023-03-26] MEDS ORDERED: LACTATED RINGERS 1,000 ML IV SCH (07:26)
[2023-03-26] MEDS ORDERED: MIDAZOLAM 2 MG/2 ML VIAL IV PRN (07:26)
[2023-03-26] MEDS ORDERED: HYDROmorphone 0.5 MG/0.5 ML SYRINGE IVP PRN (07:26)
[2023-03-26] MEDS ORDERED: LIDOCAINE 1% (10MG/ML) FOR IV START INTRADERMA PRN (07:26)
[2023-03-26] MEDS ORDERED: DEXAMETHASONE SOD PHOSPHATE 4 MG/ML 1 ML VIAL IV ONE (07:26)
[2023-03-26] MEDS ORDERED: ONDANSETRON 4 MG/2 ML VIAL IVP ONE (07:26)
[2023-03-26] MEDS ORDERED: MIDAZOLAM 2 MG/2 ML VIAL IVP ONE (08:08)
[2023-03-26] MEDS ORDERED: GLYCOPYRROLATE 0.2 MG/ML 2 ML VIAL ONE (09:05)
[2023-03-26] MEDS ORDERED: MIDAZOLAM 2 MG/2 ML VIAL ONE (09:05)
[2023-03-26] MEDS ORDERED: SUCCINYLCHOLINE CHLORIDE 200 MG/10 ML VIAL IV ONE (09:05)
[2023-03-26] MEDS ORDERED: ROCURONIUM 10 MG/ML (5 ML VIAL) IV ONE (09:05)
[2023-03-26] MEDS ORDERED: PROPOFOL 10 MG/ML 20 ML VIAL IV ONE (09:05)
[2023-03-26] MEDS ORDERED: NEOSTIGMINE 1 MG/ML 10 ML VIAL ONE (09:05)
[2023-03-26] MEDS ORDERED: MORPHINE SULFATE (PF) 0.3 MG/0.3 ML SYR ONE (09:05)
[2023-03-26] MEDS ORDERED: diphenhydrAMINE 50 MG/ML 1 ML VIAL ONE (09:05)
[2023-03-26] MEDS ORDERED: KETOROLAC 30 MG/ML 1 ML VIAL ONE (09:05)
[2023-03-26] MEDS ORDERED: fentaNYL (PF) 50 MCG/ML 2 ML AMP ONE (09:05)
[2023-03-26] MEDS ORDERED: LIDOCAINE 1% INJ 10MG/ML (20 ML MDV) ONE (09:05)
[2023-03-26] MEDS ORDERED: VASOPRESSIN 20 UNIT/ML 1 ML VIAL SQ ONE (09:20)
[2023-03-26] MEDS ORDERED: BACITRACIN ZINC 500 UNIT/GM OINT 28.4 GM TUBE TOPICAL ONE (09:36)
[2023-03-26] MEDS ORDERED: SIMETHICONE 80 MG CHEWABLE PO PRN (10:33)
[2023-03-26] MEDS ORDERED: Acetaminophen-Codeine 300-30mg TAB PO PRN ×2 (10:33)
[2023-03-26] MEDS ORDERED: ONDANSETRON 4 MG/2 ML VIAL IVP PRN (10:33)
[2023-03-26] MEDS ORDERED: KETOROLAC 15 MG/ML 1 ML VIAL IVP PRN (10:33)
--- NOTE | 2023-03-26 10:43 | P.OP ---
Date of Procedure: 03/26/23 Preoperative Diagnosis: #1. Symptomatic uterine prolapse #2. Symptomatic cystocele Postoperative Diagnosis: Same Procedure(s) Performed: #1. Vaginal hysterectomy Anesthesia: DANITA Surgeon: Carmelo Carlson [employer] Mechanic #1: Dahlia Spring Estimated Blood Loss (ml): 250 IV fluids (ml): 700 Urine output (ml): 100 Pathology: other (Uterus) Condition: stable Disposition: PACU Operative Findings: Gravid pelvic examination demonstrated a grade 2+ uterine prolapse and grade 3 cystocele present. Intraoperatively, the bilateral ovaries were seen and appeared to be entirely benign. The tubes were unable to be removed with the procedure. There was some shaggy tissue noted at the cervical vaginal junction posteriorly which may represent either endometriosis or endosalpingitis is pending pathology. This was cauterized following the case in order to ablate it. Description of Procedure: The patient was prepped and draped in usual fashion after general endotracheal anesthesia was administered by the anesthesiologist. A weighted speculum was placed and the cervix grasped with double-tooth tenaculum. The cervicovaginal mucosa was infused with diluted Pitressin and then opened circumferentially with a scalpel. The mucosa was reflected distally the sharply and bluntly. The posterior peritoneum was identified and incised sharply with the Tran scissors then tagged with a stitch of 2-0 Vicryl for later closure. The short weighted speculum was replaced the long weighted speculum and serial bites were taken starting at the uterosacral ligament bilaterally with curved Ko-Eyota clamps. Each was clamped, cut, and suture ligated with transfixion stitch of 0 Vicryl. Serial bites were taken up the cardinal ligament towards the utero- ovarian ligaments on each side. After number of bites on each side, the uterus was inverted posteriorly and the anterior peritoneum was identified and incised sharply with the Bovie. This isolated the utero-ovarian pedicle on each side which was clamped with curved Ko-Eyota clamp, cut, and suture-ligated with a transfixion stitch of 0 Vicryl followed by a free tie of 0 Vicryl. The right pedicle was noted to have some bleeding which was made hemostatic with the Bovie. After ensuring hemostasis, the utero-ovarian pedicles were released into the abdomen having noted normal ovaries bilaterally. The long weighted speculum was replaced with a short weighted speculum and the previously placed stitch of 2-0 Vicryl was utilized to close the parietal peritoneum in a pursestring stitch. Hemostasis from the pedicles appeared to be excellent. There was some bleeding at the posterior cuff. Uterosacral ligaments were passed through the contralateral side using a previously left stitch of 0 Vicryl through both the uterosacral ligament and the vaginal mucosa in a modified Navarrete's culdoplasty. The intervening open vaginal cuff was closed with interrupted [id number]-[id number]-[id number] stitches of 0 Vicryl. The shaggy tissue noted at the posterior cuff, previously the cervicovaginal junction was cauterized thoroughly. A small portion of the anterior portion of the cuff was left open and grasped with 2 Allis clamps. The vesicovaginal mucosa was infused with diluted vasopressin solution, undermined in the midline with the Metzenbaum scissors and opened sharply. Mucosa was reflected from the underlying tissues sharply and bluntly. A Lerma catheter was placed in the bladder which time clear urine was noted. Serial Darby plication stitches were placed from the urethral apex of the incision towards the apex of the vagina. Following these stitches, the intervening redundant vaginal mucosa was trimmed with Metzenbaum scissors and discarded. The vaginal mucosa was then closed with a running locking stitch of 2-0 Vicryl from the urethral margin of the incision to the vaginal cuff. Hemostasis then appeared excellent. The urine remained clear throughout the case. The vaginal cavity was then packed with one-inch iodophor gauze covered with bacitracin ointment. All sponge, instrument, needle counts were correct. Estimated blood loss for the case was approximately 250 mL. There were no complications. The patient tolerated the procedure well and proceeded to the recovery room in stable condition.
[2023-03-26] MEDS: LACTATED RINGERS 1,000 ML IV SCH ×2 (12:27→21:00)
[2023-03-26] MEDS: diphenhydrAMINE 50 MG/ML 1 ML VIAL IVP PRN ×2 (13:09→20:05)
[2023-03-26 13:13] VITALS: RESP 16
[2023-03-27] MEDS: SENNOSIDES-DOCUSATE SODIUM 1 EACH TAB PO SCH ×2 (00:13→08:52)
[2023-03-27] MEDS: IBUPROFEN 600 MG TAB PO PRN ×2 (00:13→17:02)
[2023-03-27 07:08] LABS: Basophils # (A) 0.1 k/uL (0-0.2); Basophils % (A) 1 %; Eosinophils # (A) 0.2 k/uL (0-0.7); Eosinophils % (A) 2 %; HCT 27.1 % (34.0-46.0); HGB 8.8 gm/dL (11.4-16.0); Hypochromasia Slight; Lymphocytes # (A) 2.3 k/uL (1.0-4.8); Lymphocytes % (A) 30 %; MCH 28.7 pg (25.0-35.0); MCHC 32.6 g/dL (31.0-37.0); MCV 88.2 fL (80.0-100.0); Mean Platelet Volume 7.3; Monocytes # (A) 0.4 k/uL (0-1.0); Monocytes % (A) 5 %; Neutrophils # (A) 4.8 k/uL (1.3-7.7); Neutrophils % (A) 61 %; Platelet Count 214 k/uL (150-450); RBC 3.07 m/uL (3.80-5.40); RDW 14.9 % (11.5-15.5); WBC 7.9 k/uL (3.8-10.6)
--- NOTE | 2023-03-27 08:46 | P.DS ---
Providers Expected date of discharge: 03/27/23 Attending physician: Carmelo Carlson Primary care physician: Archie Mabry - Discharge Diagnosis(es) (1) Cystocele Current Visit: Yes Status: Acute (2) Uterine prolapse Current Visit: Yes Status: Acute Hospital Course: The patient is a 63-year-old woman who presented to the office with symptomatic uterine prolapse and cystocele. She had been managing her symptoms with the pessary for some time and has now decided to proceed with surgical repair. She was taken the operating room where she underwent vaginal hysterectomy with anterior colporrhaphy and an incompetent fashion. The ovaries and tubes were left in situ as everything appeared normal. Her postoperative course has been unremarkable with vital signs being stable and her temperature was afebrile throughout. She was tolerating regular diet by the evening of day of surgery and was deemed stable for discharge on postoperative day #1. She was discharged home to follow-up in the office in 2 weeks for a recheck and 6 weeks routinely. Discharge instructions included calling for any significantly increased bleeding, fever, GI complaints, urinary complaints, or anything else that concerned her. She was additionally and most importantly instructed to do no heavy lifting more than 10 pounds over the next 6 weeks and to abstain from anything in the vagina over the same period of time. She was last instructed to do no driving until off of all pain medications or 2 weeks' time, whichever came first. She understood all of her instructions and agrees follow up as noted above. Discharge medications included only normal home medications as well as [id number] analgesic pain medications. Discharge hemoglobin was 8.8 for which the patient was entirely asymptomatic. Procedures: #1. Vaginal hysterectomy #2. Anterior colporrhaphy Patient Condition at Discharge: Stable Plan - Discharge Summary Discharge Rx Participant: Yes New Discharge Prescriptions: No Action Multivitamins, Thera [Multivitamin (formulary)] 1 tab PO DAILY Citalopram Hydrobromide [Citalopram HBr] 40 mg PO DAILY buPROPion [Wellbutrin] 75 mg PO DAILY traZODone HCL 100 mg PO HS HYDROcodone/APAP 5-325MG [[place] 5-325] 1 tab PO Q6HR PRN 3 Days #12 tab PRN Reason: Pain Cholecalciferol (Vitamin D3) [Vitamin D3 (125 MCG = 5,000 IU)] 125 mcg PO DAILY Ibuprofen [Motrin] 600 mg PO Q8HR PRN PRN Reason: Pain Omeprazole Magnesium [PriLOSEC OTC] 20 mg PO DAILY PRN PRN Reason: Heartburn Discharge Medication List Multivitamins, Thera [Multivitamin (formulary)] 1 tab PO DAILY 05/04/17 [History] Citalopram Hydrobromide [Citalopram HBr] 40 mg PO DAILY 05/07/17 [History] buPROPion [Wellbutrin] 75 mg PO DAILY 07/11/17 [History] traZODone HCL 100 mg PO HS 08/02/21 [History] Cholecalciferol (Vitamin D3) [Vitamin D3 (125 MCG = 5,000 IU)] 125 mcg PO DAILY 08/03/21 [History] Ibuprofen [Motrin] 600 mg PO Q8HR PRN 03/19/23 [History] Omeprazole Magnesium [PriLOSEC OTC] 20 mg PO DAILY PRN 03/19/23 [History] HYDROcodone/APAP 5-325MG [[place] 5-325] 1 tab PO Q6HR PRN 3 Days #12 tab 03/20/23 [Rx] Follow up Appointment(s)/Referral(s): Carmelo Carlson MD [STAFF PHYSICIAN] - 2 Weeks Discharge Disposition: HOME SELF-CARE
--- NOTE | 2023-03-27 09:02 | P.PN ---
Progress Note - Text Progress Note Date: 03/27/23 Anesthesia Postop day 1 Subjective: Status Post vaginal hysterectomy with Duramorph. Patient seen and examined. Doing well without complaint. VAS 3 out of 10. No nausea or vomiting. Mild pruritus tolerable.. Denies fever. Gross lower extremity strength intact. Without apparent anesthetic complications. Objective: Vital signs reviewed Heart: Regular Rate Lungs: Good chest excursion Abdomen: Appears nondistended Assessment: Status post vaginal hysterectomy with Duramorph postop day 1 Plan: Continue current care with your medical management. This note was dictated using Zlio software. Please be advised there is a potential for misspellings or errors in film library clerk.
[2023-03-27] MEDS ORDERED: ACETAMINOPHEN TAB 325 MG TAB PO PRN (10:35)
[2023-03-27 16:51] VITALS: BP 115/58; PULSE 69; TEMP 98
--- NOTE | 2023-03-31 11:26 | P.ANPRN ---
Procedure Note - Anesthesia - Epidural/Spinal Spinal Time Out Performed: Yes Date of Procedure: 03/26/23 Procedure Start Time: 08:07 Procedure Stop Time: 08:11 Location of Patient: PreOp Indication: Acute Post-Operative Pain, Requested by Surgeon Sedation Type: Sedate with meaningful contact maintained Preparation: Sterile Prep Position: Sitting Needle Guage: 25 Blood Aspirated: No Pain Paresthesia on Injection Noted: No Events: Uneventful and Well Tolerated (Duramorph 300 mics plus fentanyl 25 mics given into the intrathecal space)
== END 2023-03-27 17:31 | disposition home or self-care (01) ==
LOC: OR 07:13 → 4FBP 10:38 → OR 03-27 17:31
PROVIDERS: ATTEND Obstetrics & Gynecology
DX: N81.4 Uterovaginal prolapse, unspecified (principal); G89.18 Other acute postprocedural pain; F32.A Depression, unspecified; F41.9 Anxiety disorder, unspecified; F17.210 Nicotine dependence, cigarettes, uncomplicated; M81.0 Age-related osteoporosis without current pathological fracture; Z98.84 Bariatric surgery status; Z96.653 Presence of artificial knee joint, bilateral; Z90.49 Acquired absence of other specified parts of digestive tract; Z79.899 Other long term (current) drug therapy; Z88.8 Allergy status to other drugs, medicaments and biological substances; Z85.820 Personal history of malignant melanoma of skin
CPT/HCPCS: 58260; 88305; 85025; 64493; J2250; J0330; J1200; J1100; J2710; J0690; J2405; J2001; J2274; J3010; J1885 ×2; J2704

== ENCOUNTER 2024-02-21 08:02 | Day surgery (SDC) | payer OTHER ==
[2024-02-19 11:21] VITALS: BMI 28.1
--- NOTE | 2024-02-21 07:54 | P.GSHP ---
History of Present Illness H&P Date: 02/21/24 CHIEF COMPLAINT: Colon screen HISTORY OF PRESENT ILLNESS: The patient is a 64-year-old female who presents for colon screen. Lower endoscopy was offered for further evaluation and management. PAST MEDICAL HISTORY: Please see list. PAST SURGICAL HISTORY: Please see list. MEDICATIONS: Please see list. ALLERGIES: Please see list. SOCIAL HISTORY: No illicit drug use FAMILY HISTORY: No reports of Crohn disease or ulcerative colitis. REVIEW OF ORGAN SYSTEMS: CONSTITUTIONAL: No reports of fevers or chills. PHYSICAL EXAM: VITAL SIGNS: Stable GENERAL: Well-developed pleasant in no acute distress. HEENT: No scleral icterus. Extraocular movements grossly intact. Moist buccal mucosa. NECK: Supple without lymphadenopathy. CHEST: Unlabored respirations. Equal bilateral excursions. CARDIOVASCULAR: Regular rate and rhythm. Distal 2+ pulses. ABDOMEN: Soft, nontender, nondistended. MUSCULOSKELETAL: No clubbing, cyanosis, or edema. ASSESSMENT: 1. Colon screen. PLAN: 1. Recommend proceeding with a lower endoscopy Past Medical History Past Medical History: GERD/Reflux Additional Past Medical History / Comment(s): HX MELANOMA ON FOREHEAD, VARICOSE VEINS. History of Any Multi-Drug Resistant Organisms: None Reported Past Surgical History: Bariatric Surgery, Section, Cholecystectomy, Joint Replacement, Orthopedic Surgery Additional Past Surgical History / Comment(s): BILATERAL knee replacement, Lap band (REMOVED June 2014); melanoma removed from forehead, arthroscopy rt knee, gastric bypass March, right foot hammer toe surgery. colonoscopy Past Anesthesia/Blood Transfusion Reactions: No Reported Reaction Additional Past Anesthesia/Blood Transfusion Reaction / Comment(s): no blood transfusions Smoking Status: Former smoker - Past Family History Father Family Medical History: Cancer Additional Family Medical History / Comment(s): lymphoma, kidney cancer, lung Sister(s) Family Medical History: Cancer Additional Family Medical History / Comment(s): skin cancer Medications and Allergies Home Medications Medication Instructions Recorded Confirmed Type Multivitamins, Thera [Multivitamin 1 tab PO DAILY 05/04/17 02/19/24 History (formulary)] Citalopram Hydrobromide 40 mg PO DAILY 05/07/17 02/19/24 History [Citalopram HBr] buPROPion [Wellbutrin] 75 mg PO DAILY 07/11/17 02/19/24 History traZODone HCL 100 mg PO HS 08/02/21 02/19/24 History Cholecalciferol (Vitamin D3) 125 mcg PO DAILY 08/03/21 02/19/24 History [Vitamin D3 (125 MCG = 5,000 IU)] Ibuprofen [Motrin] 600 mg PO Q8HR PRN 03/19/23 02/19/24 History Omeprazole Magnesium [PriLOSEC OTC] 20 mg PO DAILY PRN 03/19/23 02/19/24 History Biotin [Biotin Disolve] 5,000 mcg PO DAILY 02/19/24 02/19/24 History Lactulose 10 gm PO HS 02/19/24 02/19/24 History Magnesium 200 mg PO DAILY 02/19/24 02/19/24 History [place]-3/Dha/Epa/Fish Oil [Fish Oil 1 tab PO HS 02/19/24 02/19/24 History 1,000 mg Softgel] Allergies Allergy/AdvReac Type Severity Reaction Status Date / Time metoclopramide [From Reglan] AdvReac suicidal Verified 02/19/24 11:15 thoughts
[2024-02-21] MEDS: LACTATED RINGERS 1,000 ML IV SCH (08:38)
[2024-02-21] MEDS: IV FLUID CONTINUATION 1,000 ML IV ONE (08:40)
[2024-02-21] MEDS: LIDOCAINE 1% (10MG/ML) FOR IV START INTRADERMA STA (08:40)
[2024-02-21 08:49] VITALS: RESP 16; TEMP 98.7
[2024-02-21] MEDS ORDERED: PROPOFOL 10 MG/ML 20 ML VIAL IV ONE (08:55)
[2024-02-21] MEDS ORDERED: GLYCOPYRROLATE 0.2 MG/ML 2 ML VIAL ONE (08:55)
[2024-02-21 09:57] VITALS: BP 113/72; PULSE 60
--- NOTE | 2024-02-21 10:18 | P.PCN ---
Date of Procedure: 02/21/24 Operative Findings: PREOPERATIVE DIAGNOSIS: Personal history of colon polyps Colonoscopy screening POSTOPERATIVE DIAGNOSIS: Tubular adenoma transverse colon Tubular adenoma rectal colon Sigmoid diverticulosis Internal hemorrhoids, grade 2 OPERATION: Colonoscopy to the ileocecal valve and appendiceal orifice, cecum Colonoscopy with hot snare polypectomy SURGEON: Lianne Seals MD. ANESTHESIA: MAC. INDICATIONS: The patient is an 64-year-old male who presents personal history of colon polyps. Last colonoscopy 5 years. Benefits and risks were described and informed consent was obtained. DESCRIPTION OF PROCEDURE: The patient had undergone GoLytely, lactulose, Dulcolax prep. The patient had been brought into the operating room and laid in the left lateral decubitus position. After adequate intravenous sedation, the rectum was examined with 2% lidocaine jelly. External hemorrhoids were encountered. The rectal tone was within normal limits. No lesions were palpated in the rectal vault. An Olympus colonoscope was advanced until the cecum, ileocecal valve and appendiceal orifice were clearly viewed. The prep was good. The colon was highly redundant requiring abdominal pressure. Sigmoid diverticulosis was encountered. Colonic polyps were found and removed. No evidence of focal colitis was found. Retroflexion of the scope demonstrated grade 2 internal hemorrhoids without active bleeding or inflammation. The colon was desufflated. The patient had tolerated the procedure well. Withdrawal time was over 6 minutes. FINDINGS: Aronchick preparation quality scale 2+ (1-5) Internal hemorrhoids, grade 2 External hemorrhoids, grade 2. No arteriovenous malformations. Sigmoid diverticulosis with highly redundant sigmoid colon Removal of 4 polyps: - Snare polypectomy 20 cm from the anal verge x 3, 5 to 8 mm tubulovillous adenoma, sigmoid colon - Snare polypectomy transverse colon, 8 mm flat villous adenoma No focal colitis. RECOMMENDATIONS: Given severity of tubular adenomas, recommend repeat colonoscopy 1 year. Plan - Discharge Summary Discharge Rx Participant: Yes New Discharge Prescriptions: Continue Multivitamins, Thera [Multivitamin (formulary)] 1 tab PO DAILY Citalopram Hydrobromide [Citalopram HBr] 40 mg PO DAILY buPROPion [Wellbutrin] 75 mg PO DAILY traZODone HCL 100 mg PO HS Magnesium 200 mg PO DAILY Cholecalciferol (Vitamin D3) [Vitamin D3 (125 MCG = 5,000 IU)] 125 mcg PO DAILY Ibuprofen [Motrin] 600 mg PO Q8HR PRN PRN Reason: Pain Omeprazole Magnesium [PriLOSEC OTC] 20 mg PO DAILY PRN PRN Reason: Heartburn Lactulose 10 gm PO HS Biotin [Biotin Disolve] 5,000 mcg PO DAILY [place]-3/Dha/Epa/Fish Oil [Fish Oil 1,000 mg Softgel] 1 tab PO HS Discharge Medication List Multivitamins, Thera [Multivitamin (formulary)] 1 tab PO DAILY 05/04/17 [History] Citalopram Hydrobromide [Citalopram HBr] 40 mg PO DAILY 05/07/17 [History] buPROPion [Wellbutrin] 75 mg PO DAILY 07/11/17 [History] traZODone HCL 100 mg PO HS 08/02/21 [History] Cholecalciferol (Vitamin D3) [Vitamin D3 (125 MCG = 5,000 IU)] 125 mcg PO DAILY 08/03/21 [History] Ibuprofen [Motrin] 600 mg PO Q8HR PRN 03/19/23 [History] Omeprazole Magnesium [PriLOSEC OTC] 20 mg PO DAILY PRN 03/19/23 [History] Biotin [Biotin Disolve] 5,000 mcg PO DAILY 02/19/24 [History] Lactulose 10 gm PO HS 02/19/24 [History] Magnesium 200 mg PO DAILY 02/19/24 [History] [place]-3/Dha/Epa/Fish Oil [Fish Oil 1,000 mg Softgel] 1 tab PO HS 02/19/24 [History] Follow up Appointment(s)/Referral(s): Lianne Seals MD [STAFF PHYSICIAN] - 04/01/24 3:00 pm Patient Instructions/Handouts: Colorectal Polyps (GEN) Activity/Diet/Wound Care/Special Instructions: Repeat colonoscopy 3 years, 2026 Discharge Disposition: HOME SELF-CARE
== END 2024-02-21 12:11 | disposition home or self-care (01) ==
LOC: ORWHC2ENDO 08:02
PROVIDERS: ATTEND Surgery Plastic and Reconstructive Surgery
DX: Z12.11 Encounter for screening for malignant neoplasm of colon (principal); D12.3 Benign neoplasm of transverse colon; K62.1 Rectal polyp; K57.30 Diverticulosis of large intestine without perforation or abscess without bleeding; K64.1 Second degree hemorrhoids; K64.4 Residual hemorrhoidal skin tags; K21.9 Gastro-esophageal reflux disease without esophagitis; F41.9 Anxiety disorder, unspecified; F32.A Depression, unspecified; Z79.899 Other long term (current) drug therapy; Z87.891 Personal history of nicotine dependence; Z86.0100 Personal history of colon polyps, unspecified; Z85.820 Personal history of malignant melanoma of skin; Z98.84 Bariatric surgery status; Z88.8 Allergy status to other drugs, medicaments and biological substances; Z96.653 Presence of artificial knee joint, bilateral
CPT/HCPCS: 88305; 45385; J2704; J1596

== ENCOUNTER → 2024-03-06 | Outpatient (CLI) | payer OTHER ==
--- NOTE | 2024-03-07 17:30 | MM ---
Reason for Exam: Screening (asymptomatic). Last mammogram was performed 1 year(s) and 6 month(s) ago. Patient History: Menarche at age 11. First Full-Term at age 24. Postmenopausal. Other cancer. Risk Values: Veronica 5 year model risk: 1.8%. NCI Lifetime model risk: 6.9%. Prior Study Comparison: 05/23/2019 Left Diagnostic Mammogram, [facility]. 02/24/2021 Bilateral Screening Mammogram, [facility]. 08/14/2022 Bilateral MG 3D screening mammo w/cad, [facility]. Tissue Density: There are scattered areas of fibroglandular density. Findings: Analyzed By CAD. Unchanged global asymmetry upper-outer quadrant right breast. Other areas of asymmetric density suggested subareolar right MLO view are also unchanged. There is no suspicious group of microcalcifications or new suspicious mass in either breast. Overall Assessment: Benign, BI-RAD 2 Management: Screening Mammogram of both breasts in 1 year. . Patient should continue monthly self-breast exams. A clinical breast exam by your physician is recommended on an annual basis. This exam should not preclude additional follow-up of suspicious palpable abnormalities. Note on Veronica scores and lifetime risk: 1. A Veronica score greater than 3% is considered moderate risk. If this is the case, consider specialist referral to assess eligibility for a risk reducing agent. 2. If overall lifetime risk for the development of breast cancer is 20% or higher, the patient may qualify for future screening with alternating mammogram and breast MRI. [facility], , 03/07/2024 5:28 PM. Electronically signed and approved by: Valentina Pina M.D. Radiologist
== END | disposition home or self-care (01) ==
LOC: RADMAMWWP 07:54
PROVIDERS: ATTEND Family Medicine
DX: Z12.31 Encounter for screening mammogram for malignant neoplasm of breast (principal); Z78.0 Asymptomatic menopausal state; R92.323 Mammographic fibroglandular density, bilateral breasts
CPT/HCPCS: 77063; 77067